=== PATIENT | female | born 1945 | race Caucasian/White ===

== ENCOUNTER 2023-04-25 12:48 | Day surgery (SDC) | payer MEDICARE, SELFPAY ==
[2023-04-25 13:21] VITALS: BP 178/80; PULSE 67; RESP 18; O2SAT 100; BMI 19.8
[2023-04-25 13:30] VITALS: BP 176/72; PULSE 83; RESP 18; O2SAT 99
[2023-04-25] MEDS: methylPREDNISolone ACETATE 80MG/ML VIAL 80 MG (13:30)
[2023-04-25 13:31] VITALS: BP 176/72; PULSE 87; RESP 18; O2SAT 100
--- NOTE | 2023-04-25 13:34 | EXP.PAIN.PRO ---
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 Lumbar spondylosis Post-procedure Diagnosis:: Same. Indications for Procedure:: Patient is a pleasant 77-year-old femal who comes our clinic today for a lumbar epidural steroid injection at the L4-5 level. Patient reports low back pain as well as bilateral hip and leg radicular symptoms. She rates her pain 7/10. Procedure Details:: Procedure: Lumbar epidural steroid injection under fluoroscopy Informed consent was obtained and the risks and benefits of the procedure were explained to the patient. The patient was taken to the procedure room and noninvasive monitors placed, including noninvasive blood pressure cuff and pulse oximeter. The back was viewed using C-arm Fluoroscopy and prepped using Chloraprep as a cleansing solution and the L4-L5 interspace was palpated. Skin and subcutaneous tissues were anesthetized using lidocaine 1.5% and a 25-gauge needle. After this, an 18-gauge Touhy epidural needle was placed into the L4-L5 interspace and advanced using fluoroscopic guidance and loss of resistance to air until the epidural space was encountered. After confirmation of needle placement in the epidural space, with dye, a solution containing normal saline, 3 mL and Depo-Medrol 80 mg were incrementally injected into the lumbar epidural space. The patient tolerated the procedure well with no complications. The patient was observed in the Pain Clinic and then discharged home neurologically intact. Plan and Disposition:: Patient was discharged out incident.
[2023-04-25 13:45] VITALS: BP 171/80; PULSE 66; RESP 16; O2SAT 100
== END 2023-04-25 13:45 | disposition home or self-care (01) ==
PROVIDERS: PCP Internal Medicine; Visit Provider Nurse Anesthetist, Certified Registered
DX: M51.16 Intervertebral disc disorders with radiculopathy, lumbar region (principal); M47.26 Other spondylosis with radiculopathy, lumbar region
CPT/HCPCS: 62323; J1040

== ENCOUNTER → 2023-05-08 11:48 | Outpatient (POV) | payer MEDICARE, SELFPAY ==
[2023-05-08 12:08] VITALS: BP 152/77; PULSE 64; RESP 18; BMI 19.7
--- NOTE | 2023-05-08 12:38 | A.OFFVIS_ITS ---
[facility] Pain Management SOAP Note Subjective:: Patient is a pleasant 77-year-old female who presents today for follow-up of lumbar epidural steroid injection L4-L5 on 04/25/2023. We are currently treating the patient for degenerative disc disease of lumbar spine with lumbar radiculopathy symptoms. Today she rates her pain a 0 out of 10. Patient denies any new trauma or injury. She states that this is the best she has felt in years. Patient states she has had at least 90% improvement and it is still continuing to provide additional relief. 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 Patient does have a history of neuropathy in her feet and arthritis in her hands. Patient states that she does stay very active. She is currently managed with gabapentin 300 mg 3 times a day from an outside provider. Her Sameer has been reviewed and is appropriate. Review of Systems: General: No recent weight changes, no fever, no sleep disturbances Respiratory: No cough, no shortness of air, no recurring pulmonary infections Cardiovascular/peripheral vascular: No chest pain, no palpitations, no edema, no shortness of breath Gastrointestinal: No new onset incontinence, normal bowel movements reported Genitourinary: No new onset incontinence Musculoskeletal: Low back pain Psychiatric: [Normal mood/affect] Neurological: [Denies weakness in extremities], [denies balance issues] Objective:: Physical Exam: General: Alert and oriented x3, no acute distress, pleasant and cooperative Lungs: Respirations even and unlabored, symmetrical chest expansion Eyes: PERRL Musculoskeletal: Flexion and extension of lumbar [spine] somewhat guarded secondary to pain, [antalgic gait noted] Neurological: Speech clear, no gross sensory deficit Assessment:: Degenerative disc disease of lumbar spine with lumbar radiculopathy symptoms Plan:: Patient has had significant improvement following her lumbar epidural and does not require any additional injection therapy at this time. I will order the patient a compounded cream. Patient will return to clinic in 1 month for reevaluation of symptoms and plan of care. Patient has been instructed to contact the clinic with any concerns before the next appointment. Dr. Peacock has reviewed this note and agrees with this plan of care. This note was dictated using voice recognition software and make contain errors or omissions. [facility] Disclaimer: The information contained in this section may have been updated after the patient was seen, as this information can be updated by other users. Family History Other Family history of myocardial infarction Heart disease Pacemaker Social History Smoking Status: Unknown if ever smoked alcohol intake: never current occupational status: other Travel in the last 8 weeks: None
== END ==
PROVIDERS: PCP Internal Medicine; Visit Provider Nurse Practitioner Family
DX: M51.16 Intervertebral disc disorders with radiculopathy, lumbar region (principal)
CPT/HCPCS: 99212; G0463

== ENCOUNTER 2023-06-12 11:23 | Outpatient (POV) | payer MEDICARE, SELFPAY ==
[2023-06-12 11:40] VITALS: BP 176/84; PULSE 74; RESP 18; O2SAT 99
--- NOTE | 2023-06-12 12:10 | A.OFFVIS_ITS ---
[facility] Pain Management SOAP Note Subjective:: Patient is a pleasant 77-year-old female who presents today for follow-up. Today she rates her pain a 6 out of 10. Patient denies any new trauma or injury. She does state that her shoulders are really bothering her with her right one being the worst side. As well as some in her low back and legs. Patient does describe her pain in her shoulders as an aching, throbbing sensation that is worse with increased activity and does limit severely her range of motion. Patient does state that the pain does interfere with her ability to perform activities of daily living such as cooking and cleaning. 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 Patient does state that the pain is interfering more with her ability to perform these activities. She is interested in injection therapy. Patient does state currently that her shoulder pain is worse than her low back pain. Patient states that she did have prior rotator cuff repair in her right shoulder on 2 different occasions however denies any prior replacement. Patient did previously have a lumbar epidural L4-L5 back in April that did provide upwards of 90% improvement. Patient was prescribed compounded cream at our last visit and states that it does help with her feet pain. Her Sameer has been reviewed and is appropriate. Review of Systems: General: No recent weight changes, no fever, no sleep disturbances Respiratory: No cough, no shortness of air, no recurring pulmonary infections Cardiovascular/peripheral vascular: No chest pain, no palpitations, no edema, no shortness of breath Gastrointestinal: No new onset incontinence, normal bowel movements reported Genitourinary: No new onset incontinence Musculoskeletal: Bilateral shoulder pain Psychiatric: [Normal mood/affect] Neurological: [Denies weakness in extremities], [denies balance issues] Objective:: Physical Exam: General: Alert and oriented x3, no acute distress, pleasant and cooperative Lungs: Respirations even and unlabored, symmetrical chest expansion Eyes: PERRL Musculoskeletal: Flexion and extension of bilateral shoulders somewhat guarded secondary to pain, [antalgic gait noted] Neurological: Speech clear, no gross sensory deficit Assessment:: Degenerative disc disease of lumbar spine with lumbar radiculopathy symptoms, bilateral shoulder pain Plan:: Patient is experiencing worsening pain in her bilateral shoulders with limited range of motion. I have discussed with the patient that she may benefit from bilateral shoulder intra-articular injection. Risk and benefits were discussed with the patient and she would like to proceed forward with this plan of care. Patient will be scheduled for bilateral shoulder intra-articular injections. Patient has been instructed to contact the clinic with any concerns before the next appointment. Dr. Peacock has reviewed this note and agrees with this plan of care. This note was dictated using voice recognition software and make contain errors or omissions. [facility] Disclaimer: The information contained in this section may have been updated after the patient was seen, as this information can be updated by other users. Family History Other Family history of myocardial infarction Heart disease Pacemaker Social History (Updated 05/08/23 @ 12:41 by Christina Scherer APRN) Smoking Status: Unknown if ever smoked alcohol intake: never current occupational status: retired Travel in the last 8 weeks: None
== END 2023-06-12 23:59 ==
LOC: SC.PAIN 11:24
PROVIDERS: PCP Internal Medicine; Visit Provider Nurse Practitioner Family
DX: M25.511 Pain in right shoulder (principal); M25.512 Pain in left shoulder; M51.16 Intervertebral disc disorders with radiculopathy, lumbar region
CPT/HCPCS: 99212; G0463

== ENCOUNTER 2023-07-11 13:00 | Day surgery (SDC) | payer MEDICARE, SELFPAY ==
[2023-07-11 13:22] VITALS: BP 194/82; PULSE 71; RESP 18; O2SAT 98; BMI 19.8
[2023-07-11] MEDS: LIDOCAINE 1% 5ML PF VIAL 5 ML (13:35)
[2023-07-11] MEDS: methylPREDNISolone ACETATE 80MG/ML VIAL 80 MG (13:35)
[2023-07-11 13:36] VITALS: BP 196/81; PULSE 75; RESP 18; O2SAT 97
[2023-07-11] MEDS: BUPIVACAINE 0.25% 10ML INJ 25 MG IJ (13:36)
[2023-07-11 13:37] VITALS: BP 196/81; PULSE 75; RESP 18; O2SAT 97
[2023-07-11 13:42] VITALS: BP 182/85; PULSE 72; RESP 18; TEMP 36.7; O2SAT 98
--- NOTE | 2023-07-11 13:44 | P.PCN_ITS ---
Procedure Date: 07/11/23 Time: 13:30 Anesthesiologist:: Kingston Ram CRNA Complications:: None Pre-procedure Diagnosis:: DJD bilateral shoulders. Chronic bilateral shoulder pain. Post-procedure Diagnosis:: Same. Indications for Procedure:: Patient is a pleasant 77-year-old female comes our clinic today for bilateral intra-articular shoulder injections of cortisone. Patient has 5/5 strength bilaterally. However, limited range of motion due to bilateral shoulder pain. Right greater than left. She rates her pain 7/10. Procedure Details:: Procedure Details: Bilateral shoulder intra-articular injection Informed consent was obtained risk and benefits of the procedure were explained to the patient. Patient was taken to the procedure room. The bilateral shoulders were prepped using ChloraPrep. A 25-gauge needle was used first anteriorly, laterally, and then posteriorly to inject 10 mL bupivacaine 0.25% and Depo- Medrol 40 mg. Patient tolerated procedure well with no complications. Plan and Disposition:: Patient was discharged without incident.
== END 2023-07-11 13:43 | disposition home or self-care (01) ==
PROVIDERS: PCP Internal Medicine; Visit Provider Nurse Anesthetist, Certified Registered
DX: M19.011 Primary osteoarthritis, right shoulder (principal); M19.012 Primary osteoarthritis, left shoulder; M25.511 Pain in right shoulder; M25.512 Pain in left shoulder; G89.29 Other chronic pain
CPT/HCPCS: 20610; J1010

== ENCOUNTER 2023-07-24 14:46 | Outpatient (POV) | payer MEDICARE, SELFPAY ==
[2023-07-24 14:53] VITALS: BP 179/76; PULSE 67; RESP 16; O2SAT 98; BMI 19.8
--- NOTE | 2023-07-24 15:32 | A.OFFVIS_ITS ---
[facility] Pain Management SOAP Note Subjective:: Patient is a pleasant 77-year-old female who presents today for follow-up of bilateral shoulder intra-articular injection on 07/11/2023. Today she rates her pain an 8 out of 10. Patient does state that that pain is all within low back and legs. She states that she has had at least 90% improvement following her shoulder injections. She does state that the left is much better than the right however overall in general she has had significant improved function and range of motion following these injections. Patient does state her pain today in her back is an aching, throbbing sensation with numbness and tingling into her extremities. She does state the pain interferes with her ability perform activities of daily living such as cooking and cleaning. Patient has previously had a lumbar epidural back in April that did provide 90% relief and has lasted up until the last couple of weeks. Patient states she would be interested in having a repeat injection as it did provide significant improvement. Her Sameer has been reviewed and is appropriate. Review of Systems: General: No recent weight changes, no fever, no sleep disturbances Respiratory: No cough, no shortness of air, no recurring pulmonary infections Cardiovascular/peripheral vascular: No chest pain, no palpitations, no edema, no shortness of breath Gastrointestinal: No new onset incontinence, normal bowel movements reported Genitourinary: No new onset incontinence Musculoskeletal: Low back pain Psychiatric: [Normal mood/affect] Neurological: [Denies weakness in extremities], [denies balance issues] Objective:: Physical Exam: General: Alert and oriented x3, no acute distress, pleasant and cooperative Lungs: Respirations even and unlabored, symmetrical chest expansion Eyes: PERRL Musculoskeletal: Flexion and extension of lumbar [spine] somewhat guarded secon sadia to pain, [antalgic gait noted] Neurological: Speech clear, no gross sensory deficit Assessment:: Degenerative disc disease of lumbar spine with lumbar radiculopathy symptoms, bilateral shoulder pain/osteoarthritis Plan:: Patient has had significant improvement following her intra-articular shoulder injections. Patient is however experiencing more pain in her low back and legs with limited range of motion. I have discussed with the patient that she may benefit from a repeat lumbar epidural steroid injection. Risk and benefits were discussed with patient and she would like to proceed forward with this plan of care. Patient has continued at home exercising and stretching between injecti ons with minimal relief. Patient has tried and failed conservative treatment. I have also discussed with the patient that if she has not had a recent DEXA scan that it may be beneficial in the future to order 1. Patient did state that she thought she was going to be getting 1 from her PCP. I have counseled her if this ends up being an issue that I will always be happy to order this for her. We will follow-up with this at future visits. Patient will be scheduled for LESI L4-L5 under fluoroscopy. Patient did previously get 90% relief lasting more than 3 months with her last lumbar epidural. Patient has been instructed to contact the clinic with any concerns before the next appointment. Dr. Peacock has reviewed this note and agrees with this plan of care. This note was dictated using voice recognition software and make contain errors or omissions. [facility] Disclaimer: The information contained in this section may have been updated after the patient was seen, as this information can be updated by other users. Medical History (Updated 07/11/23 @ 13:23 by Sona Denny RN) No significant past medical history Family History Other Family history of myocardial infarction Heart disease Pacemaker Social History Smoking Status: Unknown if ever smoked alcohol intake: never current occupational status: other Travel in the last 8 weeks: None
== END 2023-07-24 23:59 | disposition home or self-care (01) ==
LOC: SC.PAIN 14:47
PROVIDERS: PCP Internal Medicine; Visit Provider Nurse Practitioner Family
DX: M51.16 Intervertebral disc disorders with radiculopathy, lumbar region (principal); M19.011 Primary osteoarthritis, right shoulder; M19.012 Primary osteoarthritis, left shoulder; M25.511 Pain in right shoulder; M25.512 Pain in left shoulder
CPT/HCPCS: 99212; G0463

== ENCOUNTER 2023-08-15 11:48 | Day surgery (SDC) | payer MEDICARE, SELFPAY ==
[2023-08-15 12:01] VITALS: BP 170/88; PULSE 64; RESP 18; TEMP 36.3; O2SAT 100; BMI 19.8
[2023-08-15 12:11] VITALS: BP 180/74; PULSE 72; RESP 18; O2SAT 98
[2023-08-15] MEDS: methylPREDNISolone ACETATE 80MG/ML VIAL 80 MG (12:11)
[2023-08-15 12:12] VITALS: BP 180/74; PULSE 70; RESP 18; O2SAT 98
--- NOTE | 2023-08-15 12:16 | P.PCN_ITS ---
Procedure Date: 08/15/23 Time: 12:00 Anesthesiologist:: Kingston Ram CRNA Complications:: None Pre-procedure Diagnosis:: Degenerative disc lumbar spine multilevels. Lumbar radiculopathy. Post-procedure Diagnosis:: Same. Indications for Procedure:: Is a very pleasant 77-year-old female comes our clinic today for repeat lumbar epidural steroid injection L4-5 level. Patient reports 90+ percent improvement with previous injections at the same level. Patient reports low back pain as well as bilateral hip and leg radicular symptoms at times. She rates her pain 6/10. Procedure Details:: Procedure: Lumbar epidural steroid injection under fluoroscopy Informed consent was obtained and the risks and benefits of the procedure were explained to the patient. The patient was taken to the procedure room and noninvasive monitors placed, including noninvasive blood pressure cuff and pulse oximeter. The back was viewed using C-arm Fluoroscopy and prepped using Chloraprep as a cleansing solution and the L4-L5 interspace was palpated. Skin a nd subcutaneous tissues were anesthetized using lidocaine 1.5% and a 25-gauge needle. After this, an 18-gauge Touhy epidural needle was placed into the L4-L5 interspace and advanced using fluoroscopic guidance and loss of resistance to air until the epidural space was encountered. After confirmation of needle placement in the epidural space, with dye, a solution containing normal saline, 3 mL and Depo-Medrol 80 mg were incrementally injected into the lumbar epidural space. The patient tolerated the procedure well with no complications. The patient was observed in the Pain Clinic and then discharged home neurologically intact. Plan and Disposition:: Patient was discharged without incident.
[2023-08-15 12:21] VITALS: BP 185/79; PULSE 65; RESP 16; O2SAT 98
== END 2023-08-15 12:22 | disposition home or self-care (01) ==
PROVIDERS: PCP Internal Medicine; Visit Provider Nurse Anesthetist, Certified Registered
DX: M51.16 Intervertebral disc disorders with radiculopathy, lumbar region (principal)
CPT/HCPCS: 62323; J1010

== ENCOUNTER 2023-08-28 09:22 | Outpatient (POV) | payer MEDICARE, SELFPAY ==
[2023-08-28 10:02] VITALS: BP 174/76; PULSE 62; RESP 18; O2SAT 99; BMI 19.5
--- NOTE | 2023-08-28 10:04 | A.OFFVIS_ITS ---
[facility] Pain Management SOAP Note Subjective:: Patient is a pleasant 77-year-old female who presents today for follow-up of lumbar epidural steroid injection L4-L5 on 08/15/2023. Patient rates her pain today an 8 out of 10. She denies any new trauma or injury. She does state that she had at least 80% relief in her low back and leg symptoms. She states her pain today is more related to her right groin. Patient states this is a constant achy sensation that is worse with ambulation or activity. She denies any radiating symptoms down into her leg and states its only really when she is up walking. She does state the pain interferes with her ability perform activities of daily living such as cooking and cleaning. Patient denies any prior right hip replacement. Patient does have a history of her fractures that ended up resulting in having to have a couple of nails/screws placed. Patient does state from our last visit that she is now having to go see a provider at [facility] due to an abnormal finding on a CT scan of her pancreas. Patient states that they were trying to rule out any kidney stones or possible shingles and that was how they ended up getting the imaging. Patient states that she does not really know what exactly will be doing and has not heard from that office yet with her appointment date and time. Patient is prescribed compounded cream and is requesting refills. Her Sameer has been reviewed and is appropriate. Review of Systems: General: No recent weight changes, no fever, no sleep disturbances Respiratory: No cough, no shortness of air, no recurring pulmonary infections Cardiovascular/peripheral vascular: No chest pain, no palpitations, no edema, no shortness of breath Gastrointestinal: No new onset incontinence, normal bowel movements reported Genitourinary: No new onset incontinence Musculoskeletal: Right hip pain/right groin pain Psychiatric: [Normal mood/affect] Neurological: [Denies weakness in extremities], [denies balance issues] Objective:: Physical Exam: General: Alert and oriented x3, no acute distress, pleasant and cooperative Lungs: Respirations even and unlabored, symmetrical chest expansion Eyes: PERRL Musculoskeletal: Flexion and extension of right hip somewhat guarded secondary to pain, [antalgic gait noted] Neurological: Speech clear, no gross sensory deficit Assessment:: Degenerative disc disease of lumbar spine with lumbar radiculopathy symptoms, right hip/groin pain Plan:: Patient is experiencing worsening pain in her right hip with limited range of motion. Patient had a negative Jacob's and negative point tenderness along her SI during today's exam. I have discussed with the patient due to her worsening pain they are in her hip and groin area that she may benefit from a intra-articular hip injection. Risk and benefits were discussed with the patient and she would like to proceed forward with this plan of care. I did college admissions counselor the patient that when she does hear from the specialist from [facility] to let them know that she is scheduled for a hip injection and whether or not they have any contraindications to this and let our office know. I will order refills of her cream. Patient will be scheduled for a right hip intra-articular injection under fluoroscopy. Patient has tried and failed conservative therapy including continued at home exercising and stretching between injections. Patient did have elevated blood pressure of 178/74 with her last check before she left today's office. Patient is prescribed blood pressure medications from her primary care provider. We have discussed with patient to make sure to follow-up with the office for possible changes to her current symptoms. Patient acknowledged this with this plan of care. Patient has been instructed to contact the clinic with any concerns before the next appointment. Dr. Peacock has reviewed this note and agrees with this plan of care. This note was dictated using voice recognition software and make contain errors or omissions. [facility] Disclaimer: The information contained in this section may have been updated after the patient was seen, as this information can be updated by other users. Medical History No significant past medical history Family History Other Family history of myocardial infarction Heart disease Pacemaker Social History Smoking Status: Unknown if ever smoked alcohol intake: never current occupational status: retired Travel in the last 8 weeks: None
== END 2023-08-28 23:59 | disposition home or self-care (01) ==
LOC: SC.PAIN 09:22
PROVIDERS: PCP Internal Medicine; Visit Provider Nurse Practitioner Family
DX: M25.551 Pain in right hip (principal); M51.36 Other intervertebral disc degeneration, lumbar region; M54.16 Radiculopathy, lumbar region
CPT/HCPCS: 99212; G0463

== ENCOUNTER 2023-09-19 08:59 | Day surgery (SDC) | payer MEDICARE, SELFPAY ==
[2023-09-19 09:27] VITALS: BP 177/78; PULSE 80; RESP 18; TEMP 36.4; O2SAT 97; BMI 19.5
[2023-09-19] MEDS: BUPIVACAINE 0.25% 10ML INJ 25 MG IJ (09:42)
[2023-09-19] MEDS: LIDOCAINE 1% 5ML PF VIAL 5 ML (09:42)
[2023-09-19] MEDS: methylPREDNISolone ACETATE 80MG/ML VIAL 80 MG (09:42)
[2023-09-19 09:43] VITALS: BP 191/85; PULSE 79; RESP 18; O2SAT 97
[2023-09-19 09:45] VITALS: BP 191/85; PULSE 79; RESP 18; O2SAT 97
[2023-09-19 09:46] VITALS: BP 188/80; PULSE 76; RESP 18; O2SAT 98
--- NOTE | 2023-09-19 09:59 | P.PCN_ITS ---
Procedure Date: 09/19/23 Time: 09:30 Anesthesiologist:: Kingston Ram CRNA Complications:: None Pre-procedure Diagnosis:: DJD right hip. Chronic right hip pain. Post-procedure Diagnosis:: Same. Indications for Procedure:: Patient is a pleasant 77-year-old female comes our clinic today for right intra- articular hip injection of cortisone. Patient has difficulty with abduction and abduction due to increased pain in the anterior portion of the hip. Ambulation increases pain significantly. She rates her pain 8/10. Procedure Details:: Details of the procedure were explained to the patient. The patient was taken to procedure room placed in the supine position. The area over the right hip was cleaned using chlorhexidine as a cleansing solution. Using fluoroscopy guidance a 3 and half inch 22-gauge spinal needle was used to access the right hip joint without difficulty. After negative aspiration 3 cc of 1% lidocaine +3 cc of 0.25% Marcaine and 40 mg of Depo-Medrol was injected. Needle was withdrawn. Band-Aid applied. Patient tolerated procedure without difficulty. There are no complications. Plan and Disposition:: Patient was discharged without incident.
== END 2023-09-19 09:48 | disposition home or self-care (01) ==
PROVIDERS: PCP Internal Medicine; Visit Provider Nurse Anesthetist, Certified Registered
DX: G89.29 Other chronic pain (principal); M25.551 Pain in right hip; M16.11 Unilateral primary osteoarthritis, right hip
CPT/HCPCS: 20610; 77002; J1010

== ENCOUNTER 2023-10-05 11:32 | Outpatient (POV) | payer MEDICARE, SELFPAY ==
--- NOTE | 2023-10-05 11:48 | EXP.PAIN.SOA ---
[facility] Disclaimer: The information contained in this section may have been updated after the patient was seen, as this information can be updated by other users. Medical History (Updated 10/05/23 @ 11:51 by Christina Scherer APRN) No significant past medical history Family History Other Family history of myocardial infarction Heart disease Pacemaker Social History Smoking Status: Unknown if ever smoked alcohol intake: never current occupational status: retired Travel in the last 8 weeks: None PM Subjective & Objective Subjective Subjective:: Patient is a pleasant 78-year-old female who presents today for follow-up of right hip intra-articular injection on 09/19/2023. Patient rates her pain today an 8 out of 10. She denies any new trauma or injury. She states this injection only really did minimal up upwards of 25%. She states she is still having tenderness around her low back and bilateral hips as well as her right groin. It is a constant achy sensation that is worse with ambulation or activity. She does state the pain interferes with her ability perform activities of daily living such as cooking and cleaning. She denies any symptoms down into her legs. She states that she cannot do very much/work or cleaning due to the worsening pain. Patient is interested in any help we may be able to provide. Patient is prescribed compounded cream. Her Sameer has been reviewed and is appropriate. Review of Systems: General: No recent weight changes, no fever, no sleep disturbances Respiratory: No cough, no shortness of air, no recurring pulmonary infections Cardiovascular/peripheral vascular: No chest pain, no palpitations, no edema, no shortness of breath Gastrointestinal: No new onset incontinence, normal bowel movements reported Genitourinary: No new onset incontinence Musculoskeletal: Low back pain, bilateral hip pain, right groin pain Psychiatric: [Normal mood/affect] Neurological: [Denies weakness in extremities], [denies balance issues] Pain at rest (0-10 scale): 8 Objective Objective:: Physical Exam: General: Alert and oriented x3, no acute distress, pleasant and cooperative Lungs: Respirations even and unlabored, symmetrical chest expansion Eyes: PERRL Musculoskeletal: Flexion and extension of lumbar [spine] somewhat guarded secondary to pain, [antalgic gait noted] point tenderness along bilateral SIs with positive bilateral Jacob's, Ashia's, Gaenslen's, compression and distraction exam Neurological: Speech clear, no gross sensory deficit Has patient had previous pain injection?: Yes Percent improvement in pain since last injection: 25% Conservative treatment options previously tried: NSAIDS Length of treatment: Longer than 12 weeks and Home exercise plan Length of treatment: Longer than 12 weeks Meds Home Medications and Allergies Home Medications ?Medication ?Instructions ?Recorded ?Confirmed ?Type alendronate 70 mg tablet 70 mg PO WEEKLY 04/25/23 08/28/23 History gabapentin 300 mg capsule 300 mg PO TID 04/25/23 08/28/23 History lisinopril 20 mg tablet 20 mg PO DAILY 04/25/23 08/28/23 History diclofenac sodium 50 mg 50 mg PO DAILY 06/12/23 08/28/23 History tablet,delayed release New Prescriptions to Start Prescriptions: Allergies Allergy/AdvReac Type Severity Reaction Status Date / Time sulfamethoxazole AdvReac Verified 04/25/23 13:21 [From Bactrim] trimethoprim [From Bactrim] AdvReac Verified 04/25/23 13:21 Assessment and Plan *Assessment and plan (1) Bilateral sacroiliitis: Status: Acute Category: Medical Code(s): M46.1 - Sacroiliitis, not elsewhere classified (2) Bilateral hip pain: Status: Acute Category: Medical Code(s): M25.551 - Pain in right hip; M25.552 - Pain in left hip Plan Patient is experiencing significant pain throughout her low back and bilateral hips and right groin. Patient did have point tenderness along her bilateral SIs with positive bilateral Jacob's, Ashia's, Gaenslen's, compression and distraction exam. I discussed with the patient that she may benefit from bilateral SI injections. Risk and benefits were discussed with the patient and she would like to proceed forward with this plan of care. Patient has tried and failed conservative therapy including oral medications, heat and ice, topicals, continued at home stretching exercise for longer than 12 weeks. We will submit to insurance for bilateral SI injections under fluoroscopy. Patient has been instructed to contact the clinic with any concerns before the next appointment. Dr. Peacock has reviewed this note and agrees with this plan of care. This note was dictated using voice recognition software and make contain errors or omissions. All injections are used with Lidocaine or Bupivacaine and Depo Medrol.
[2023-10-05 12:19] VITALS: BP 142/72; PULSE 69; RESP 18; O2SAT 97; BMI 19.8
== END 2023-10-05 23:59 | disposition home or self-care (01) ==
LOC: SC.PAIN 11:33
PROVIDERS: PCP Internal Medicine; Visit Provider Nurse Practitioner Family
DX: M46.1 Sacroiliitis, not elsewhere classified (principal); M25.551 Pain in right hip; M25.552 Pain in left hip; Z73.89 Other problems related to life management difficulty
CPT/HCPCS: 99212; G0463

== ENCOUNTER 2023-10-24 11:31 | Day surgery (SDC) | payer MEDICARE, SELFPAY ==
[2023-10-24 11:49] VITALS: RESP 18; O2SAT 97
[2023-10-24] MEDS: LIDOCAINE 1% 5ML PF VIAL 5 ML (11:49)
[2023-10-24] MEDS: methylPREDNISolone ACETATE 80MG/ML VIAL 80 MG (11:49)
[2023-10-24] MEDS: BUPIVACAINE 0.25% 10ML INJ 25 MG IJ (11:49)
[2023-10-24 11:52] VITALS: BP 185/79; PULSE 70; RESP 16; TEMP 36.4; O2SAT 98; BMI 19.4
--- NOTE | 2023-10-24 11:54 | P.PCN_ITS ---
Procedure Date: 10/24/23 Time: 11:40 Anesthesiologist:: Kingston Ram CRNA Complications:: None Pre-procedure Diagnosis:: Bilateral sacroiliitis. Post-procedure Diagnosis:: Same. Indications for Procedure:: Patient is a very pleasant 78-year-old female who comes our clinic today for bilateral sacroiliac joint injection of cortisone. Patient describes low lumbar back pain off the midline as constant, dull, aching. Patient reports having difficulty transitioning from sitting to standing. She rates her pain 7/10. Procedure Details:: Procedure: Bilateral sacroiliac joint injections under fluoroscopy Informed consent was obtained and the risks and benefits of the procedure were explained to the patient.~ The patient was taken to the procedure room and noninvasive monitors were placed including a noninvasive blood pressure cuff and pulse oximeter.~ The patient was placed prone on the procedure table. Both hips were cleansed using Betadine as a cleansing solution. C-arm fluoroscopy was used to view the right sacroiliac joint.~ The skin and subcutaneous tissues were anesthetized using lidocaine 1.5% and a 25-gauge needle.~ After this, a 22-gauge spinal needle was inserted under fluoroscopic guidance into the inferior aspect of the right sacroiliac joint.~ Omnipaque dye was injected and good spread was seen throughout the joint.~ After this, approximately 5 mL of bupivacaine, 0.25% and Depo-Medrol, 40 mg was incrementally injected into the right sacroiliac joint. We then moved to the left sacroiliac joint.~ The skin and subcutaneous tissues were anesthetized using lidocaine 1.5% and a 25-gauge needle.~ After this, a 22- gauge spinal needle was inserted under fluoroscopic guidance into the inferior aspect of the left sacroiliac joint.~ Omnipaque dye was injected and good spread was seen throughout the joint. After this, approximately 5 mL of bupivacaine, 0.25% and Depo-Medrol, 40 mg was incrementally injected into the left sacroiliac joint.~ The patient tolerated the procedure well with no complications. The patient was observed in the Pain Clinic and then was discharged home neurologically intact. Plan and Disposition:: Patient was discharged without incident.
[2023-10-24 11:56] VITALS: BP 198/81; PULSE 66; RESP 16; O2SAT 98
== END 2023-10-24 11:56 | disposition home or self-care (01) ==
PROVIDERS: PCP Internal Medicine; Visit Provider Nurse Anesthetist, Certified Registered
DX: M46.1 Sacroiliitis, not elsewhere classified (principal)
CPT/HCPCS: 27096; G0260; J1010

== ENCOUNTER 2023-11-20 11:08 | Outpatient (POV) | payer MEDICARE, SELFPAY ==
--- NOTE | 2023-11-20 11:41 | A.OFFVIS_ITS ---
[facility] Disclaimer: The information contained in this section may have been updated after the patient was seen, as this information can be updated by other users. Medical History (Updated 11/20/23 @ 11:43 by Christina Scherer APRN) No significant past medical history Family History Other Family history of myocardial infarction Heart disease Pacemaker Social History Smoking Status: Unknown if ever smoked alcohol intake: never current occupational status: retired Travel in the last 8 weeks: None PM Subjective & Objective Subjective Subjective:: Patient is a pleasant 78-year-old female who presents today for 1 month follow- up. Today she rates her pain a 7 out of 10. Patient denies any new trauma or injury. She does state that her last SI injections back on October 23 did provide 90% relief and really worked the full months since then. Patient does state today that she is experiencing more pain in her low back that is a constant aching sensation with numbness and tingling going down primarily her en tire right leg. She does state that she has some in the left leg but it is nothing in comparison. Patient does state the pain interferes with her ability perform activities of daily living such as cooking and cleaning. Patient does state that she is also had a DEXA scan recently and that it did have significant osteoporosis noted. She states that she has been to her primary care and that she was on Fosamax for some time however they recently did stop that and were trying to get her in for Prolia injections. Patient states that the girl in the office that gets you set up and gives you the cost has been out due to COVID and so she has not heard back on this. She is prescribed gabapentin from an outside provider and compounded cream from our office. Her Sameer has been reviewed and is appropriate. Review of Systems: General: No recent weight changes, no fever, no sleep disturbances Respiratory: No cough, no shortness of air, no recurring pulmonary infections Cardiovascular/peripheral vascular: No chest pain, no palpitations, no edema, no shortness of breath Gastrointestinal: No new onset incontinence, normal bowel movements reported Genitourinary: No new onset incontinence Musculoskeletal: Low back pain, bilateral leg pain Psychiatric: [Normal mood/affect] Neurological: [Denies weakness in extremities], [denies balance issues] Pain at rest (0-10 scale): 7 Objective Objective:: Physical Exam: General: Alert and oriented x3, no acute distress, pleasant and cooperative Lungs: Respirations even and unlabored, symmetrical chest expansion Eyes: PERRL Musculoskeletal: Flexion and extension of lumbar [spine] somewhat guarded secondary to pain, [antalgic gait noted] Neurological: Speech clear, no gross sensory deficit Has patient had previous pain injection?: Yes Percent improvement in pain since last injection: 90% Conservative treatment options previously tried: Home exercise plan Length of treatment: Longer than 12 weeks Meds Home Medications and Allergies Home Medications ?Medication ?Instructions ?Recorded ?Confirmed ?Type alendronate 70 mg tablet 70 mg PO WEEKLY 04/25/23 10/24/23 History gabapentin 300 mg capsule 300 mg PO TID 04/25/23 10/24/23 History lisinopril 20 mg tablet 20 mg PO DAILY 04/25/23 10/24/23 History diclofenac sodium 50 mg 50 mg PO DAILY 06/12/23 10/24/23 History tablet,delayed release New Prescriptions to Start Prescriptions: Allergies Allergy/AdvReac Type Severity Reaction Status Date / Time sulfamethoxazole AdvReac Verified 10/24/23 11:52 [From Bactrim] trimethoprim [From Bactrim] AdvReac Verified 10/24/23 11:52 Assessment and Plan *Assessment and plan (1) Degenerative disc disease, lumbar: Status: Acute Category: Medical Code(s): M51.36 - Other intervertebral disc degeneration, lumbar region (2) Lumbar radiculopathy: Status: Acute Category: Medical Code(s): M54.16 - Radiculopathy, lumbar region Plan Patient is experiencing worsening pain throughout her low back and bilateral lower extremities with limited range of motion. Patient has had lumbar epidurals in the past and I have discussed with her that I do believe she would benefit from this injection today due to her current exam findings. Patient's last injection was in August where she did get 80% relief and did significantly improve her overall function. Risk and benefits were discussed with the patient and she would like to proceed forward with this plan of care. I have discussed at length with her as well that we will have to be very mindful of her injections due to her significant osteoporosis. I have also discussed with her to make sure that she does follow-up with primary care that she is scheduled for the Prolia injection as soon as possible. Patient acknowledges understanding. Patient will be scheduled for an LESI L4-L5 under fluoroscopy. Patient has continued at home stretching exercise for longer than 12 weeks with no additional changes. Patient has been instructed to contact the clinic with any concerns before the next appointment. Dr. Peacock has reviewed this note and agrees with this plan of care. This note was dictated using voice recognition software and make contain errors or omissions. All injections are used with Lidocaine or Bupivacaine and Depo Medrol.
[2023-11-20 11:53] VITALS: BP 185/75; PULSE 67; RESP 18; O2SAT 98; BMI 19.5
== END 2023-11-20 23:59 | disposition home or self-care (01) ==
LOC: SC.PAIN 11:10
PROVIDERS: PCP Internal Medicine; Visit Provider Nurse Practitioner Family
DX: M51.16 Intervertebral disc disorders with radiculopathy, lumbar region (principal); Z73.89 Other problems related to life management difficulty
CPT/HCPCS: 99212; G0463

== ENCOUNTER 2023-12-05 13:58 | Day surgery (SDC) | payer MEDICARE, SELFPAY ==
[2023-12-05 14:23] VITALS: BP 127/60; PULSE 74; RESP 16; TEMP 36.4; O2SAT 97; BMI 19.1
[2023-12-05 14:45] VITALS: BP 170/78; PULSE 75; RESP 18; O2SAT 97
[2023-12-05] MEDS: methylPREDNISolone ACETATE 80MG/ML VIAL 80 MG (14:45)
[2023-12-05 14:46] VITALS: BP 170/78; PULSE 75; RESP 18; O2SAT 97
--- NOTE | 2023-12-05 14:49 | P.PCN_ITS ---
Procedure Date: 12/05/23 Time: 14:30 Anesthesiologist:: Kingston Ram CRNA Complications:: None Pre-procedure Diagnosis:: Degenerative disc lumbar spine multilevels. Lumbar radiculopathy. Lumbar spondylosis. Multilevel lumbar facet arthropathy Post-procedure Diagnosis:: Same. Indications for Procedure:: Patient is a very pleasant 78-year-old female comes our clinic today for repeat L4-5 lumbar epidural steroid injection. Patient is reporting 1 to 2 months of relief with previous injection at the same level. She describes low back pain as constant, dull, aching. She also reports bilateral hip and leg radicular symptoms. She rates her pain 6/10. Procedure Details:: Procedure: Lumbar epidural steroid injection under fluoroscopy Informed consent was obtained and the risks and benefits of the procedure were explained to the patient. The patient was taken to the procedure room and noninvasive monitors placed, including noninvasive blood pressure cuff and pulse oximeter. The back was viewed using C-arm Fluoroscopy and prepped using Chloraprep as a cleansing solution and the L4-L5 interspace was palpated. Skin and subcutaneous tissues were anesthetized using lidocaine 1.5% and a 25-gauge needle. After this, an 18-gauge Touhy epidural needle was placed into the L4-L5 interspace and advanced using fluoroscopic guidance and loss of resistance to air until the epidural space was encountered. After confirmation of needle pl acement in the epidural space, with dye, a solution containing normal saline, 3 mL and Depo-Medrol 80 mg were incrementally injected into the lumbar epidural space. The patient tolerated the procedure well with no complications. The patient was observed in the Pain Clinic and then discharged home neurologically intact. Plan and Disposition:: Patient was discharged without incident.
[2023-12-05 14:53] VITALS: BP 131/74; PULSE 71; RESP 18; O2SAT 96
== END 2023-12-05 14:53 | disposition home or self-care (01) ==
PROVIDERS: PCP Internal Medicine; Visit Provider Nurse Anesthetist, Certified Registered
DX: M51.16 Intervertebral disc disorders with radiculopathy, lumbar region (principal); M47.26 Other spondylosis with radiculopathy, lumbar region
CPT/HCPCS: 62323; J1010

== ENCOUNTER 2024-01-01 15:05 | Outpatient (POV) | payer MEDICARE, SELFPAY ==
[2024-01-01 16:07] VITALS: BP 130/80; PULSE 76; RESP 16; O2SAT 99; BMI 19.3
--- NOTE | 2024-01-01 16:09 | EXP.PAIN.SOA ---
[facility] Disclaimer: The information contained in this section may have been updated after the patient was seen, as this information can be updated by other users. Medical History No significant past medical history Family History Other Family history of myocardial infarction Heart disease Pacemaker Social History Smoking Status: Unknown if ever smoked alcohol intake: never current occupational status: retired Travel in the last 8 weeks: None PM Subjective & Objective Subjective Subjective:: Patient is a pleasant 78-year-old female who presents today for follow-up of lumbar epidural steroid injection L4-L5 on 12/05/2023. Patient rates her pain today a 7 out of 10. She denies any new trauma or injury. Patient does state that initially when she had this done when she got up off the table she was completely numb however within about 4 hours the pain was already starting to come back. Patient does state a lot of her pain is still in her low back and bilateral hips with numbness and tingling. She does state the pain is interfering with her ability perform activities of daily living such as cooking and cleaning. Patient did previously get bilateral SI injections that did provide 90% improvement and lasted longer than 2 months. Patient states that she is interested in additional injection therapy that it has provided significant improvement of her overall function. Patient does also have questions regarding possible pump or stimulator trial. Patient has tried and failed conservative therapy including continued at home stretching exercise for longer than 12 weeks. Patient was tried on compounded cream however she felt like diclofenac did just as well if not better. She is asking if we can send in refills on this. Her Sameer has been reviewed and is appropriate. Review of Systems: General: No recent weight changes, no fever, no sleep disturbances Respiratory: No cough, no shortness of air, no recurring pulmonary infections Cardiovascular/peripheral vascular: No chest pain, no palpitations, no edema, no shortness of breath Gastrointestinal: No new onset incontinence, normal bowel movements reported Genitourinary: No new onset incontinence Musculoskeletal: Low back pain, bilateral hip pain Psychiatric: [Normal mood/affect] Neurological: [Denies weakness in extremities], [denies balance issues] Pain at rest (0-10 scale): 7 Objective Objective:: Physical Exam: General: Alert and oriented x3, no acute distress, pleasant and cooperative Lungs: Respirations even and unlabored, symmetrical chest expansion Eyes: PERRL Musculoskeletal: Flexion and extension of lumbar [spine] somewhat guarded secondary to pain, [antalgic gait noted] point tenderness along bilateral SIs with positive bilateral Jacob's, Ashia's, Gaenslen's, compression and distraction exam Neurological: Speech clear, no gross sensory deficit Has patient had previous pain injection?: Yes Percent improvement in pain since last injection: Numb for 4 hours Conservative treatment options previously tried: Home exercise plan Length of treatment: Longer than 12 weeks Meds Home Medications and Allergies Home Medications ?Medication ?Instructions ?Recorded ?Confirmed ?Type alendronate 70 mg tablet 70 mg PO WEEKLY 04/25/23 01/01/24 History gabapentin 300 mg capsule 300 mg PO TID 04/25/23 01/01/24 History lisinopril 20 mg tablet 20 mg PO DAILY 04/25/23 01/01/24 History diclofenac sodium 50 mg 50 mg PO DAILY 06/12/23 01/01/24 History tablet,delayed release New Prescriptions to Start Prescriptions: Allergies Allergy/AdvReac Type Severity Reaction Status Date / Time sulfamethoxazole AdvReac Verified 10/24/23 11:52 [From Bactrim] trimethoprim [From Bactrim] AdvReac Verified 10/24/23 11:52 Assessment and Plan *Assessment and plan (1) Bilateral sacroiliitis: Status: Acute Category: Medical Code(s): M46.1 - Sacroiliitis, not elsewhere classified (2) Bilateral hip pain: Status: Acute Category: Medical Code(s): M25.551 - Pain in right hip; M25.552 - Pain in left hip Plan Patient is experiencing worsening pain in her low back and bilateral hips with limited range of motion and point tenderness along her bilateral SIs. Patient did have positive bilateral Jacob's, Ashia's, Gaenslen's, compression and distraction exam. I did discuss with the patient that she may benefit from repeat bilateral SI injections. Risk and benefits were discussed with the patient and she would like to proceed forward with this plan of care. Patient has tried and failed conservative therapy including continued at home stretching exercise for longer than 12 weeks. Patient did previously have bilateral SI injections in October that did provide 90% relief. I did also review over the risk and benefits of the pain pump and stimulator trial. Patient was counseled that we would order a psychological evaluation first and that as long as she was deemed an appropriate candidate could proceed forward with the trial at a later date. Patient acknowledges understanding and states that she would like to think on it. We will follow-up with this at future visits. Patient will be scheduled for bilateral SI injections under fluoroscopy. I will also order the patient diclofenac gel. Patient has been instructed to contact the clinic with any concerns before the next appointment. Dr. Peacock has reviewed this note and agrees with this plan of care. This note was dictated using voice recognition software and make contain errors or omissions. All injections are used with Lidocaine or Bupivacaine and Depo Medrol.
== END 2024-01-01 23:59 | disposition home or self-care (01) ==
PROVIDERS: PCP Internal Medicine; Visit Provider Nurse Practitioner Family
DX: M46.1 Sacroiliitis, not elsewhere classified (principal); M25.551 Pain in right hip; M25.552 Pain in left hip; Z73.89 Other problems related to life management difficulty
CPT/HCPCS: 99212; G0463

== ENCOUNTER 2024-01-30 10:35 | Day surgery (SDC) | payer MEDICARE, SELFPAY ==
[2024-01-30 10:53] VITALS: BP 138/66; PULSE 78; RESP 16; TEMP 36.6; O2SAT 99; BMI 19.1
[2024-01-30] MEDS: LIDOCAINE 1% 5ML PF VIAL 5 ML (11:10)
[2024-01-30] MEDS: methylPREDNISolone ACETATE 80MG/ML VIAL 80 MG (11:11)
[2024-01-30] MEDS: BUPIVACAINE 0.25% 10ML INJ 25 MG IJ (11:11)
--- NOTE | 2024-01-30 11:20 | P.PCN_ITS ---
Procedure Date: 01/30/24 Time: 10:40 Anesthesiologist:: Kingston Ram CRNA Complications:: None Pre-procedure Diagnosis:: Bilateral sacroiliitis Post-procedure Diagnosis:: Same Indications for Procedure:: Patient is a pleasant 78-year-old female comes our clinic today for bilateral sacroiliac joint injections of cortisone and local anesthetic. Patient describes low lumbar back pain off the midline bilaterally. Bilateral posterior hip pain. Difficulty transitioning from sitting to standing. Difficulty with ambulation. Difficulty with sitting. She rates her pain 8/10. According to the patient she responded well to bilateral sacroiliac joint injections in the past. Procedure Details:: Procedure: Bilateral sacroiliac joint injections under fluoroscopy Informed consent was obtained and the risks and benefits of the procedure were explained to the patient.~ The patient was taken to the procedure room and noninvasive monitors were placed including a noninvasive blood pressure cuff and pulse oximeter.~ The patient was placed prone on the procedure table. Both hips were cleansed using Betadine as a cleansing solution. C-arm fluoroscopy was used to view the right sacroiliac joint.~ The skin and subcutaneous tissues were anes thetized using lidocaine 1.5% and a 25-gauge needle.~ After this, a 22-gauge spinal needle was inserted under fluoroscopic guidance into the inferior aspect of the right sacroiliac joint.~ Omnipaque dye was injected and good spread was seen throughout the joint.~ After this, approximately 5 mL of bupivacaine, 0.25% and Depo-Medrol, 40 mg was incrementally injected into the right sacroiliac joint. We then moved to the left sacroiliac joint.~ The skin and subcutaneous tissues were anesthetized using lidocaine 1.5% and a 25-gauge needle.~ After this, a 22- gauge spinal needle was inserted under fluoroscopic guidance into the inferior aspect of the left sacroiliac joint.~ Omnipaque dye was injected and good spread was seen throughout the joint. After this, approximately 5 mL of bupivacaine, 0.25% and Depo-Medrol, 40 mg was incrementally injected into the left sacroiliac joint.~ The patient tolerated the procedure well with no complications. The patient was observed in the Pain Clinic and then was discharged home neurologically intact. Plan and Disposition:: Patient was discharged without incident.
[2024-01-30 11:24] VITALS: BP 174/86; PULSE 86; RESP 16; O2SAT 99
== END 2024-01-30 11:24 | disposition home or self-care (01) ==
PROVIDERS: PCP Internal Medicine; Visit Provider Nurse Anesthetist, Certified Registered
DX: M46.1 Sacroiliitis, not elsewhere classified (principal)
CPT/HCPCS: 27096; G0260; J1010

== ENCOUNTER 2024-02-19 11:11 | Outpatient (POV) | payer MEDICARE, SELFPAY ==
--- NOTE | 2024-02-19 11:22 | EXP.PAIN.SOA ---
[facility] Disclaimer: The information contained in this section may have been updated after the patient was seen, as this information can be updated by other users. Medical History (Updated 02/19/24 @ 12:13 by Christina Scherer APRN) No significant past medical history Family History Other Family history of myocardial infarction Heart disease Pacemaker Social History Smoking Status: Unknown if ever smoked alcohol intake: never current occupational status: retired Travel in the last 8 weeks: None PM Subjective & Objective Subjective Subjective:: Patient is a pleasant 78-year-old female who presents today for follow-up of bilateral SI injections on 01/30/2024.Patient rates her pain today a 8 out of 10. She denies any new trauma or injury. She does state that she had more than 50% improvement on the left following these injections however on the right she still is having more pain. She does state a lot of her pain today is also related to her shoulder. Patient states that she did end up seeing Dr. Patterson they are in [place] and that she is getting scheduled for a right shoulder replacement in March. Patient states that this is chronic pain throughout this joint and she does have limited range of motion. Patient states that she has not seen any second opinions however that Pat had mentioned a provider in [place] but she never heard anything further. Patient has tried and failed conservative therapy including continued at home stretching exercise for longer than 12 weeks. Patient has tried the compounded cream however got better relief with diclofenac gel. Her Sameer has been reviewed and is appropriate. Review of Systems: General: No recent weight changes, no fever, no sleep disturbances Respiratory: No cough, no shortness of air, no recurring pulmonary infections Cardiovascular/peripheral vascular: No chest pain, no palpitations, no edema, no shortness of breath Gastrointestinal: No new onset incontinence, normal bowel movements reported Genitourinary: No new onset incontinence Musculoskeletal: Low back pain right-sided, right shoulder pain Psychiatric: [Normal mood/affect] Neurological: [Denies weakness in extremities], [denies balance issues] Pain at rest (0-10 scale): 8 Objective Objective:: Physical Exam: General: Alert and oriented x3, no acute distress, pleasant and cooperative Lungs: Respirations even and unlabored, symmetrical chest expansion Eyes: PERRL Musculoskeletal: Flexion and extension of lumbar [spine] somewhat guarded secondary to pain, [antalgic gait noted] Neurological: Speech clear, no gross sensory deficit Has patient had previous pain injection?: Yes Percent improvement in pain since last injection: 80% Conservative treatment options previously tried: Home exercise plan Length of treatment: Longer than 12 weeks Meds Home Medications and Allergies Home Medications ?Medication ?Instructions ?Recorded ?Confirmed ?Type alendronate 70 mg tablet 70 mg PO WEEKLY 04/25/23 01/30/24 History gabapentin 300 mg capsule 300 mg PO TID 04/25/23 01/30/24 History lisinopril 20 mg tablet 20 mg PO DAILY 04/25/23 01/30/24 History diclofenac sodium 50 mg 50 mg PO DAILY 06/12/23 01/30/24 History tablet,delayed release diclofenac sodium 3 % topical gel 1 applic topical BID #100 grams 01/01/24 01/30/24 Rx New Prescriptions to Start Prescriptions: Allergies Allergy/AdvReac Type Severity Reaction Status Date / Time sulfamethoxazole (From AdvReac Verified 10/24/23 11:52 Bactrim) trimethoprim (From Bactrim) AdvReac Verified 10/24/23 11:52 Assessment and Plan *Assessment and plan (1) Bilateral hip pain: Status: Acute Category: Medical Code(s): M25.551 - Pain in right hip; M25.552 - Pain in left hip (2) Degenerative disc disease, lumbar: Status: Acute Category: Medical Code(s): M51.369 - Other intervertebral disc degeneration, lumbar region without mention of lumbar back pain or lower extremity pain (3) Lumbar radiculopathy: Status: Acute Category: Medical Code(s): M54.16 - Radiculopathy, lumbar region (4) Bilateral sacroiliitis: Status: Acute Category: Medical Code(s): M46.1 - Sacroiliitis, not elsewhere classified (5) Right shoulder pain: Status: Acute Category: Medical Code(s): M25.511 - Pain in right shoulder Plan Patient is still experiencing some chronic pain along her right low back as well as chronic pain in her right shoulder related to needing a total shoulder replacement. I did discuss at length with the patient regarding having a second opinion to make sure that she is seeing someone who does shoulder surgeries day in and day out especially with her extent of osteoporosis history. I did review over with her regarding [facility] and who Pat had recommended. We will send a referral over to Dr. Page there at [facility] and also I will reach out to Pat and see if he can also help get her in sooner rather than later for evaluation. Patient agrees with this plan of care. I will plan on following up with the patient in 1 month via telehealth appointment. Patient has been instructed to contact the clinic with any concerns before the next appointment. Dr. Peacock has reviewed this note and agrees with this plan of care. This note was dictated using voice recognition software and make contain errors or omissions. All injections are used with Lidocaine, Bupivacaine and Depo Medrol. Occasionally urine drug screen is needed to verify patient's compliance with our office pain contract. This is ordered based off specific treatments related to chronic pain with the potential to abuse certain medications.
[2024-02-19 13:43] VITALS: BP 158/80; PULSE 82; RESP 14; O2SAT 97; BMI 19.1
== END 2024-02-19 23:59 | disposition home or self-care (01) ==
LOC: SC.PAIN 11:14
PROVIDERS: PCP Internal Medicine; Visit Provider Nurse Practitioner Family
DX: M25.551 Pain in right hip (principal); M25.552 Pain in left hip; M46.1 Sacroiliitis, not elsewhere classified; M25.511 Pain in right shoulder; M51.16 Intervertebral disc disorders with radiculopathy, lumbar region
CPT/HCPCS: 99212; G0463

== ENCOUNTER 2024-03-21 13:14 | Outpatient (POV) | payer MEDICARE, SELFPAY ==
--- NOTE | 2024-03-21 13:54 | A.OFFVIS_ITS ---
[facility] Disclaimer: The information contained in this section may have been updated after the patient was seen, as this information can be updated by other users. Medical History (Updated 02/19/24 @ 12:13 by Christina Scherer APRN) No significant past medical history Family History Other Family history of myocardial infarction Heart disease Pacemaker Social History Smoking Status: Unknown if ever smoked alcohol intake: never current occupational status: other Travel in the last 8 weeks: None PM Subjective & Objective Subjective Subjective:: Patient is a pleasant 78-year-old female who presents today for follow-up via telehealth appointment. She is having this appointment while she is currently hospitalized for her right shoulder replacement that was done on Monday. She does state that she is doing overall pretty well from this. Today she rates her pain a 5 out of 10. She does state that this is a combination between her right shoulder and her low back. She does state that she had a lot of pain last night with the right shoulder and that they did give her morphine and it did ease down the pain. She states she has already been up doing physical therapy today and it does seem to be doing much better.She is prescribed compounded cream from our office. Her Sameer has been reviewed and is appropriate. Review of Systems: General: No recent weight changes, no fever, no sleep disturbances Respiratory: No cough, no shortness of air, no recurring pulmonary infections Cardiovascular/peripheral vascular: No chest pain, no palpitations, no edema, no shortness of breath Gastrointestinal: No new onset incontinence, normal bowel movements reported Genitourinary: No new onset incontinence Musculoskeletal: [] Psychiatric: [Normal mood/affect] Neurological: [Denies weakness in extremities], [denies balance issues] Pain at rest (0-10 scale): 5 Objective Objective:: General: Alert and oriented x3, pleasant and cooperative Lungs: Patient is able to say complete sentences without dyspnea Neurological: Speech clear Has patient had previous pain injection?: No Conservative treatment options previously tried: Home exercise plan Length of treatment: Longer than 12 weeks Meds Home Medications and Allergies Home Medications ?Medication ?Instructions ?Recorded ?Confirmed ?Type alendronate 70 mg tablet 70 mg PO WEEKLY 04/25/23 02/19/24 History gabapentin 300 mg capsule 300 mg PO TID 04/25/23 02/19/24 History lisinopril 20 mg tablet 20 mg PO DAILY 04/25/23 02/19/24 History diclofenac sodium 50 mg 50 mg PO DAILY 06/12/23 02/19/24 History tablet,delayed release diclofenac sodium 3 % topical gel 1 applic topical BID #100 grams 01/01/24 02/19/24 Rx New Prescriptions to Start Prescriptions: Allergies Allergy/AdvReac Type Severity Reaction Status Date / Time sulfamethoxazole (From AdvReac Verified 10/24/23 11:52 Bactrim) trimethoprim (From Bactrim) AdvReac Verified 10/24/23 11:52 Assessment and Plan *Assessment and plan (1) Right shoulder pain: Status: Acute Category: Medical Code(s): M25.511 - Pain in right shoulder (2) Lumbar radiculopathy: Status: Acute Category: Medical Code(s): M54.16 - Radiculopathy, lumbar region (3) Degenerative disc disease, lumbar: Status: Acute Category: Medical Code(s): M51.369 - Other intervertebral disc degeneration, lumbar region without mention of lumbar back pain or lower extremity pain (4) Bilateral hip pain: Status: Acute Category: Medical Code(s): M25.551 - Pain in right hip; M25.552 - Pain in left hip (5) Bilateral sacroiliitis: Status: Acute Category: Medical Code(s): M46.1 - Sacroiliitis, not elsewhere classified Plan Patient did give verbal consent for this audio appointment today. I did discuss with her that we will follow-up with her in 6 weeks to allow her more time to recover from her shoulder replacement surgery. We will also continue to monitor her low back pain and see if she does need additional injections including the bilateral SI injections with her last ones in January. Patient agrees with this plan of care. This visit did last - Patient did give verbal consent for this audio telehealth appointment patient has been instructed to contact the clinic with any concerns before the next appointment. Dr. Peacock has reviewed this note and agrees with this plan of care. This note was dictated using voice recognition software and make contain errors or omissions. All injections are used with Lidocaine, Bupivacaine and Depo Medrol. Occasionally urine drug screen is needed to verify patient's compliance with our office pain contract. This is ordered based off specific treatments related to chronic pain with the potential to abuse certain medications.
== END 2024-03-21 23:59 | disposition home or self-care (01) ==
LOC: SC.PAIN 13:16
PROVIDERS: Visit Provider Nurse Practitioner Family
DX: M25.511 Pain in right shoulder (principal); M51.16 Intervertebral disc disorders with radiculopathy, lumbar region; M25.551 Pain in right hip; M25.552 Pain in left hip; M46.1 Sacroiliitis, not elsewhere classified
CPT/HCPCS: 99212; G0463

== ENCOUNTER 2024-05-09 10:42 | Outpatient (POV) | payer MEDICARE, SELFPAY ==
[2024-05-09 11:39] VITALS: BP 150/83; BP 155/81; PULSE 69; RESP 14; O2SAT 97; BMI 19.4
--- NOTE | 2024-05-09 12:00 | A.OFFVIS_ITS ---
[facility] Disclaimer: The information contained in this section may have been updated after the patient was seen, as this information can be updated by other users. Medical History No significant past medical history Family History Other Family history of myocardial infarction Heart disease Pacemaker Social History Smoking Status: Unknown if ever smoked alcohol intake: never current occupational status: other Travel in the last 8 weeks: None PM Subjective & Objective Subjective Subjective:: Patient is a pleasant 78-year-old female who presents today for follow-up and wo rsening pain. She does write her overall pain most prominent in her low back, groin area that does radiate down to her feet bilaterally. Patient feels like she has even had more swelling. Patient states the pain is interfering with her ability perform activities of daily living such as cooking and cleaning. Patient did just recover from right shoulder replacement and has done really well with this. She denies any problems from the replacement. Patient does also make mention that she would also like to start proceeding forward with the spinal cord stimulator trial. Patient had had a psychological evaluation and was deemed an appropriate candidate before her shoulder replacement however had put that off until after she had recovered from the surgery. Patient does state that she would really like to see if this is going to provide her more significant improvement on a daily basis. Patient has continued conservative treatment including oral medications, heat and ice, topicals, at home stretching exercise for longer than 12 weeks with no additional changes. Patient is very active and would like to be able to do more on a day-to-day basis. Patient is prescribed compounded cream from our office. Her Sameer has been reviewed and is appropriate. Review of Systems: General: No recent weight changes, no fever, no sleep disturbances Respiratory: No cough, no shortness of air, no recurring pulmonary infections Cardiovascular/peripheral vascular: No chest pain, no palpitations, no edema, no shortness of breath Gastrointestinal: No new onset incontinence, normal bowel movements reported Genitourinary: No new onset incontinence Musculoskeletal: Low back pain, bilateral hip/groin pain/bilateral leg numbness tingling Psychiatric: [Normal mood/affect] Neurological: [Denies weakness in extremities], [denies balance issues] Pain at rest (0-10 scale): 5 Objective Objective:: Physical Exam: General: Alert and oriented x3, no acute distress, pleasant and cooperative Lungs: Respirations even and unlabored, symmetrical chest expansion Eyes: PERRL Musculoskeletal: Flexion and extension of lumbar [spine] somewhat guarded secondary to pain, [antalgic gait noted] positive leg raise Neurological: Speech clear, no gross sensory deficit Has patient had previous pain injection?: No Conservative treatment options previously tried: Home exercise plan Length of treatment: Longer than 12 weeks Meds Home Medications and Allergies Home Medications ?Medication ?Instructions ?Recorded ?Confirmed ?Type alendronate 70 mg tablet 70 mg PO WEEKLY 04/25/23 05/09/24 History gabapentin 300 mg capsule 300 mg PO TID 04/25/23 05/09/24 History lisinopril 20 mg tablet 20 mg PO DAILY 04/25/23 05/09/24 History diclofenac sodium 50 mg 50 mg PO DAILY 06/12/23 05/09/24 History tablet,delayed release diclofenac sodium 3 % topical gel 1 applic topical BID #100 grams 01/01/24 05/09/24 Rx New Prescriptions to Start Prescriptions: Allergies Allergy/AdvReac Type Severity Reaction Status Date / Time sulfamethoxazole (From AdvReac Verified 10/24/23 11:52 Bactrim) trimethoprim (From Bactrim) AdvReac Verified 10/24/23 11:52 Assessment and Plan *Assessment and plan (1) Lumbar radiculopathy: Status: Acute Category: Medical Code(s): M54.16 - Radiculopathy, lumbar region (2) Degenerative disc disease, lumbar: Status: Acute Category: Medical Code(s): M51.369 - Other intervertebral disc degeneration, lumbar region without mention of lumbar back pain or lower extremity pain (3) Bilateral hip pain: Status: Acute Category: Medical Code(s): M25.551 - Pain in right hip; M25.552 - Pain in left hip Plan Patient is experiencing worsening pain throughout her low back with radiating symptoms to her hip and groin and down her bilateral legs with numbness and tingling. Patient did have limited range of motion of her lumbar spine with positive leg raise. I did discuss with the patient that I do believe she would benefit from a repeat lumbar epidural steroid injection. Patient risk and benefits were discussed and she would like to proceed forward with this option. I did also review over the spinal cord stimulator trial risk and benefits. We will plan on proceeding forward with both the injection and spinal cord stimulator trial in June. Patient has continued and failed conservative treatment including oral medication, heat and ice, topicals, physical therapy, at home stretching exercise that was physician guided for longer than 12 weeks. Patient will be scheduled for an LESI L5-S1 under fluoroscopy. Patient had her last lumbar epidural back in December 2023 of L4-L5 that did provide 50% improvement. Patient does have longstanding back pain with radiating symptoms for longer than 6 months with no additional changes. Patient will also be submitted for the spinal cord stimulator trial under fluoroscopy. Patient has had a psychological evaluation and was deemed an appropriate candidate for this device. Patient agrees with these options and plan of care. Patient has been instructed to contact the clinic with any concerns before the next appointment. Dr. Peacock has reviewed this note and agrees with this plan of care. This note was dictated using voice recognition software and make contain errors or omissions. All injections are used with Lidocaine, Bupivacaine and Depo Medrol. Occasionally urine drug screen is needed to verify patient's compliance with our office pain contract. This is ordered based off specific treatments related to chronic pain with the potential to abuse certain medications.
== END 2024-05-09 23:59 | disposition home or self-care (01) ==
LOC: SC.PAIN 10:49
PROVIDERS: PCP Internal Medicine; Visit Provider Nurse Practitioner Family
DX: M51.16 Intervertebral disc disorders with radiculopathy, lumbar region (principal); M25.551 Pain in right hip; M25.552 Pain in left hip; Z73.89 Other problems related to life management difficulty; Z96.611 Presence of right artificial shoulder joint
CPT/HCPCS: 99212; G0463

== ENCOUNTER 2024-06-11 11:15 | Day surgery (SDC) | payer MEDICARE, SELFPAY ==
[2024-06-11 11:22] VITALS: BP 142/76; PULSE 72; RESP 17; TEMP 36.8; O2SAT 99; BMI 19.7
[2024-06-11 11:41] VITALS: BP 142/76; PULSE 72; RESP 18; O2SAT 98
[2024-06-11] MEDS: methylPREDNISolone ACETATE 80MG/ML VIAL 80 MG (11:41)
[2024-06-11 11:48] VITALS: BP 142/76; PULSE 72; RESP 18; O2SAT 98
[2024-06-11 11:50] VITALS: BP 154/85; PULSE 78; RESP 17; O2SAT 99
--- NOTE | 2024-06-11 12:34 | P.PCN_ITS ---
Procedure Date: 06/11/24 Time: 11:00 Anesthesiologist:: Kingston Ram CRNA Complications:: None Pre-procedure Diagnosis:: Degenerative disc lumbar spine multilevels. Lumbar radiculopathy. Lumbar spondylosis. Multilevel lumbar facet arthropathy. Post-procedure Diagnosis:: Same. Indications for Procedure:: Patient is a pleasant 78-year-old female who comes our clinic today for a lumbar epidural steroid injection at the L5-S1 level. Patient describes low lumbar back pain as well as bilateral hip and leg radicular symptoms. She rates her pain 7/10. Procedure Details:: Procedure: Lumbar epidural steroid injection under fluoroscopy Informed consent was obtained and the risks and benefits of the procedure were explained to the patient. The patient was taken to the procedure room and noninvasive monitors placed, including noninvasive blood pressure cuff and pulse oximeter. The back was viewed using C-arm Fluoroscopy and prepped using Chloraprep as a cleansing solution and the L5-S1 interspace was palpated. Skin and subcutaneous tissues were anesthetized using lidocaine 1.5% and a 25-gauge needle. After this, an 18-gauge Touhy epidural needle was placed into the L5-S1 interspace and advanced using fluoroscopic guidance and loss of resistance to air until the epidural space was encountered. After confirmation of needle placement in the epidural space, with dye, a solution containing normal saline, 3 mL and Depo-Medrol 80 mg were incrementally injected into the lumbar epidural space. The patient tolerated the procedure well with no complications. The patient was observed in the Pain Clinic and then discharged home neuro logically intact. Plan and Disposition:: Patient was discharged without incident.
== END 2024-06-11 11:50 | disposition home or self-care (01) ==
LOC: SC.PAINP 11:17
PROVIDERS: PCP Internal Medicine; Visit Provider Nurse Anesthetist, Certified Registered
DX: M51.16 Intervertebral disc disorders with radiculopathy, lumbar region (principal); M47.26 Other spondylosis with radiculopathy, lumbar region
CPT/HCPCS: 62323; J1010

== ENCOUNTER 2024-06-25 14:57 | Outpatient (POV) | payer MEDICARE, SELFPAY ==
--- NOTE | 2024-06-25 15:01 | A.OFFVIS_ITS ---
[facility] Disclaimer: The information contained in this section may have been updated after the patient was seen, as this information can be updated by other users. Medical History (Updated 06/25/24 @ 15:29 by Christina Scherer APRN) No significant past medical history Family History Other Family history of myocardial infarction Heart disease Pacemaker Social History Smoking Status: Unknown if ever smoked alcohol intake: never current occupational status: other Travel in the last 8 weeks: None PM Subjective & Objective Subjective Subjective:: Patient is a pleasant 78-year-old female who presents today for follow-up of l umbar epidural steroid injection L5-S1 on 06/11/2024. Today she rates her pain a 3 out of 10. Patient denies any new falls or injuries. She does state that she has had improvement in her overall low back from this injection however she has been having worsening pain primarily in the right groin and is her bilateral hips. She states this pain is worse with increased activity and that on bad days it goes to a 9 out of 10. She states that it is hard to gauge exactly how much relief the epidural did due to this pain. She states that it is interfering with her ability perform activities of daily living such as cooking and cleaning. She denies any other changes. Patient is prescribed compounded cream from our office. Patient is still scheduled to go see a provider for her psychological evaluation to proceed forward with a spinal cord stimulator trial in future. Her Sameer has been reviewed and is appropriate. Review of Systems: General: No recent weight changes, no fever, no sleep disturbances Respiratory: No cough, no shortness of air, no recurring pulmonary infections Cardiovascular/peripheral vascular: No chest pain, no palpitations, no edema, no shortness of breath Gastrointestinal: No new onset incontinence, normal bowel movements reported Genitourinary: No new onset incontinence Musculoskeletal: Bilateral hip pain, right groin pain Psychiatric: [Normal mood/affect] Neurological: [Denies weakness in extremities], [denies balance issues] Pain at rest (0-10 scale): 9 Objective Objective:: Physical Exam: General: Alert and oriented x3, no acute distress, pleasant and cooperative Lungs: Respirations even and unlabored, symmetrical chest expansion Eyes: PERRL Musculoskeletal: Flexion and extension of lumbar [spine] somewhat guarded secondary to pain, [antalgic gait noted] point tenderness along bilateral SIs with positive bilateral Jacob's, Ashia's, Gaenslen's, compression and distraction exam Neurological: Speech clear, no gross sensory deficit Has patient had previous pain injection?: Yes Percent improvement in pain since last injection: Moderate Conservative treatment options previously tried: Home exercise plan Length of treatment: Longer than 12 weeks Meds Home Medications and Allergies Home Medications ?Medication ?Instructions ?Recorded ?Confirmed ?Type alendronate 70 mg tablet 70 mg PO WEEKLY 04/25/23 06/11/24 History gabapentin 300 mg capsule 300 mg PO TID 04/25/23 06/11/24 History lisinopril 20 mg tablet 20 mg PO DAILY 04/25/23 06/11/24 History diclofenac sodium 50 mg 50 mg PO DAILY 06/12/23 06/11/24 History tablet,delayed release diclofenac sodium 3 % topical gel 1 applic topical BID #100 grams 01/01/24 06/11/24 Rx New Prescriptions to Start Prescriptions: Allergies Allergy/AdvReac Type Severity Reaction Status Date / Time sulfamethoxazole (From AdvReac Unknown Verified 06/11/24 11:22 Bactrim) allergy reaction trimethoprim (From Bactrim) AdvReac Unknown Verified 06/11/24 11:22 allergy reaction Assessment and Plan *Assessment and plan (1) Bilateral sacroiliitis: Status: Acute Category: Medical Code(s): M46.1 - Sacroiliitis, not elsewhere classified (2) Bilateral hip pain: Status: Acute Category: Medical Code(s): M25.551 - Pain in right hip; M25.552 - Pain in left hip (3) Right groin pain: Status: Acute Category: Medical Code(s): R10.31 - Right lower quadrant pain Plan Patient is experiencing worsening pain along her bilateral hips and right groin. She did have point tenderness along bilateral SI joints and a positive bilateral Jacob's, Ashia's, Gaenslen's, compression and distraction exam. I did discuss with the patient that I do believe they would benefit from bilateral SI injections. Risk and benefits were discussed with the patient and they would like to proceed forward with this option. Patient has tried and failed conservative therapy including continued at home stretching exercise for longer than 12 weeks. Patient has had chronic sacroiliitis in the past with her last injections in January 2024. Those injections did provide 80% relief initially and did decrease down to about 50% provide at the 2-week katey. Patient has not had worsening pain in this location since. These did provide significant relief however is always had worsening symptoms along the right side. Patient will be scheduled for bilateral SI injections under fluoroscopy. Patient has been instructed to contact the clinic with any concerns before the next appointment. Dr. Peacock has reviewed this note and agrees with this plan of care. This note was dictated using voice recognition software and make contain errors or omissions. All injections are used with Lidocaine or Bupivacaine and dexamethasone.
[2024-06-25 15:28] VITALS: BP 128/59; PULSE 65; RESP 18; O2SAT 97; BMI 19.5
== END 2024-06-25 23:59 | disposition home or self-care (01) ==
LOC: SC.PAIN 15:01
PROVIDERS: PCP Internal Medicine; Visit Provider Nurse Practitioner Family
DX: M46.1 Sacroiliitis, not elsewhere classified (principal); M25.551 Pain in right hip; M25.552 Pain in left hip; R10.31 Right lower quadrant pain; Z73.89 Other problems related to life management difficulty
CPT/HCPCS: 99212; G0463

== ENCOUNTER 2024-07-23 14:03 | Day surgery (SDC) | payer MEDICARE, SELFPAY ==
[2024-07-23 14:17] VITALS: BP 169/62; PULSE 67; RESP 16; TEMP 36.8; O2SAT 98; BMI 19.1
--- NOTE | 2024-07-23 14:27 | P.PCN_ITS ---
Procedure Date: 07/23/24 Time: 14:40 Anesthesiologist:: Kingston Ram CRNA Complications:: None Pre-procedure Diagnosis:: Bilateral sacroiliitis Post-procedure Diagnosis:: Same Indications for Procedure:: Patient is a very pleasant 78-year-old female who comes our clinic today for bilateral sacroiliac joint injection cortisone local anesthetic. Patient describes low lumbar back pain off midline bilaterally. Bilateral posterior hip pain. Difficulty transitioning from sitting to standing. Difficulty with ambulation. She rates her pain 7/10. Procedure Details:: Procedure: Bilateral sacroiliac joint injections under fluoroscopy Informed consent was obtained and the risks and benefits of the procedure were explained to the patient.~ The patient was taken to the procedure room and noninvasive monitors were placed including a noninvasive blood pressure cuff and pulse oximeter.~ The patient was placed prone on the procedure table. Both hips were cleansed using Betadine as a cleansing solution. C-arm fluoroscopy was used to view the right sacroiliac joint.~ The skin and subcutaneous tissues were anesthetized using lidocaine 1.5% and a 25-gauge needle.~ After this, a 22-gauge spinal needle was inserted under fluoroscopic guidance into the inferior aspect of the right sacroiliac joint.~ Omnipaque dye was injected and good spread was seen throughout the joint.~ After this, approximately 5 mL of bupivacaine, 0.25% and Depo-Medrol, 40 mg was incrementally injected into the right sacroiliac joint. We then moved to the left sacroiliac joint.~ The skin and subcutaneous tissues were anesthetized using lidocaine 1.5% and a 25-gauge needle.~ After this, a 22- gauge spinal needle was inserted under fluoroscopic guidance into the inferior aspect of the left sacroiliac joint.~ Omnipaque dye was injected and good spread was seen throughout the joint. After this, approximately 5 mL of bupivacaine, 0.25% and Depo-Medrol, 40 mg was incrementally injected into the left sacroiliac joint.~ The patient tolerated the procedure well with no complications. The patient was observed in the Pain Clinic and then was discharged home neurologically intact. Plan and Disposition:: Patient was discharged without incident.
[2024-07-23 14:31] VITALS: BP 150/80; PULSE 69; RESP 16; O2SAT 98
[2024-07-23] MEDS: BUPIVACAINE 0.25% 10ML INJ 25 MG IJ (14:31)
[2024-07-23] MEDS: LIDOCAINE 1% 30ML PF VIAL 30 ML (14:31)
[2024-07-23] MEDS: DEXAMETHASONE 10MG/ML 1ML VIAL 10 MG (14:31)
[2024-07-23 14:32] VITALS: BP 169/62; PULSE 67; RESP 18; O2SAT 98
[2024-07-23 14:33] VITALS: BP 169/62; PULSE 67; RESP 18; O2SAT 98
== END 2024-07-23 14:31 | disposition home or self-care (01) ==
PROVIDERS: PCP Internal Medicine; Visit Provider Nurse Anesthetist, Certified Registered
DX: M46.1 Sacroiliitis, not elsewhere classified (principal)
CPT/HCPCS: G0260; J1100

== ENCOUNTER 2024-08-12 10:46 | Outpatient (POV) | payer MEDICARE, SELFPAY ==
--- OUTSIDE RECORDS SUMMARY | 2024-08-12 10:53 | XMS_ITS | Clinical Summary ---
Author Organization [facility] Address [address] [place] [address] Phone Care Team Providers Care Tea Blender Name Role Phone Butch LARA Stone Richardson [phone] Conditions or Problems Problem Name Problem Code Onset Date Status Entry Date Provider Comment Standard Description Annotate SPINAL STENOSIS, LUMBAR REGION WITH NEUROGENIC CLAUDICATION 498584731 (SNOMED CT) 11/14 Active 11/22 Elin Fernando [employer] Neurogenic claudication SCOLIOSIS DEFORMITY OF SPINE 059887146 (SNOMED CT) 11/14 Active 11/22 Elin Fernando [employer] Scoliosis deformity of spine SPONDYLOLISTH ESIS 265138664 (SNOMED CT) 11/14 Active 11/14 [facility] Spondylolisthesis Medications Medication Instructions Start Date Stop Date Generic Name NDC Provider GABAPENTIN 100 MG CAPS Take 1-3 capsule by mouth three times a day may increase dose as tolerated to up to 300 mg TID; start at 100mg TID 1 gabapentin [id number] Elin Fernando [employer] Medications Administered No information available. Allergies, Adverse Reactions, Alerts Observed no known allergies at Results No information available. Plan of Care Type Date Detail Pending order KIRT x 1 therapeu tic injection & follow up with ordering MD Pending order X-Ray Lumbar AP Lateral & Flexion/Extension Procedures No information available. Vital Signs No information available. Immunizations No information available. Advance Directives No information available.
--- OUTSIDE RECORDS SUMMARY | 2024-08-12 10:54 | XMS_ITS | Clinical Summary ---
Author Organization [facility] Address [address] [place] [id number] Care Team Providers Care Vice President Financial Name Role Phone John Walls MD Primary Care Provider [phone] Source Comments This information has been disclosed to you from confidential records protectedfrom disclosure by state law. You shall make no further disclosure of thisinformation without the specific, written, and informed release of theindividual to whom it pertains, or as otherwise permitted by law. A generalauthorization for the release of medical or other information is not sufficientfor the purposes of therelease of HIV test results or diagnoses. [id number] Allergies No known active allergies Medications lisinopriL (PRINIVIL) 20 MG tablet Take 1 tablet (20 mg total) by mouth daily. Active alendronate (FOSAMAX) 70 mg/75 mL solution Take 75 mLs (70 mg total) by mouth every 7 days. Active cholecalciferol , vitamin D3, 1000 units tablet Take 1 tablet (1,000 Units total) by mouth daily. Active ascorbic acid, vitamin C, (VITAMIN C) 100 MG tablet Take 1 tablet (100 mg total) by mouth daily. Active gabapentin (NEURONTIN) 100 MG capsule Take 1 capsule (100 mg total) by mouth 3 times a day. Active acetaminophen (TYLENOL EXTRA STRENGTH) 500 MG tablet Take 2 tablets every 6 hours by oral route as needed. Active pantoprazole (PROTONIX) 40 MG tablet Take 1 tablet (40 mg total) by mouth every morning before breakfast. 30 tablet 11/03/2023 Active Social History Tobacco Use Types Packs/Day Years Used Date Smoking Tobacco: Never Smokeless Tobacco: Never Tobacco Cessation:Counseling Given: Not Answered Alcohol Use Standard Drinks/Week Comments Never 0 (1 standard drink = 0.6 oz pur e alcohol) PHQ-2 Answer Date Recorded PHQ-2 Total Score 1 10/11/2023 Yearly Questionnaire Answer Date Record ed Do you need any assistance w ith obtaining housing, meals, medication, transportation or medical equipment? No 10/10 Assistance needed for: Not on file 4 Yearly Questionnaire Answer Date Record ed Do you need any assistance w ith obtaining housing, meals, medication, transportation or medical equipment? No 10/10 Assistance needed for: Not on file 4 Yearly Questionnaire Answer Date Record ed Do you need any assistance w ith obtaining housing, meals, medication, transportation or medical equipment? No 10/10 Assistance needed for: Not on file 4 Comments Unknown Sex and Gender Information Value Date Recorded Sex Assigned at Not on file Legal Sex Female 9:46 AM EDT Gender Identity Not on file Sexual Orientation Not on file Last Filed Vital Signs Vital Sign Reading Time Taken Comments Blood Pressure 172/78 11/03/2023 3:00 PM EDT Pulse 70 11/03/2023 1:02 PM EDT Temperature 36.2 C (97.2 F) 11/03/2023 2:29 PM EDT Respiratory Rate 16 11/03/2023 3:00 PM EDT Oxygen Saturation 98% 11/03/2023 3:00 PM EDT Inhaled Oxygen Concentration 98% 11/03/2023 3 :00 PM EDT Weight 54.4 kg (120 lb) 11/03/2023 1:02 PM EDT Height 170.2 cm (5' 7 ) 11/03/2023 1:02 PM EDT Body Mass Index 18.79 11/03/2023 1:02 PM EDT Plan of Treatment Health Maintenance Due Date Last Done Comments Immunization: Pneumococcal ( 1 of 1 - PCV) 1994 Immunization: Zoster (1 of 2) 1994 Osteoporosis Screening (DXA Scan) 1994 Immunization: DTaP/Tdap/Td ( 1 - Tdap) 05/12/1996 05/11/1996 Immunization: RSV (Adult) (1 - 1-dose 75+ series) 10/03/2019 Immunization: COVID-19 ( season) 2023 02/12/2021, 06/04/2020, 05/06/2020, Additional history exists Depression Screening 10/10/2024 10/11/2023 Immunization: Influenza (MyC zambrano) (Season Ended) 2024 01/10/2023, 04/08/2019, 04/09/2018, Additional history exists Insurance MEDICARE A AND B Member Subscriber Plan / Payer (Ef fective 2009-Present) Name:Brandee Dupree Relation to Subscriber:Self Name:Brandee Dupree Payer ID:[id number] Group ID:Not on file Type:Medicare Address: [address] Care Teams Vice President Financial Relationship Specialty Start Date End Date John Walls MD [address] [place] [address] PCP - General Internal Medicine 10/11/23
--- OUTSIDE RECORDS SUMMARY | 2024-08-12 10:54 | XMS_ITS | Continuity of Care Document ---
Author Organization [facility] Address [address] [place] [address] [place] [address] Care Team Providers Care Material Lister Name Role Phone DAVID MOROCHO Primary Care Provider DAVID MOROCHO Primary Care Provider Unavaila ble Assessment No assessment recorded. Plan of Treatment Reminders Order Date Submit Date Provider Last Modified By Organization Details Last Modified Time Details Appointments 6 MONTH FU 15 2024 10:00A M David Edwards rd, MD Not available Not available Not available ORT EST 15 2025 09:00A M Brian Patterson MD Not available Not available Not available Lab None recorded. Referral None recorded. Procedures None recorded. Surgeries None recorded. Imaging XR, shoulder 2024 025 [email or web address] [facility], [address] [place] [address] [place], [address], 07/22/2024 14:35:10 Medication Orders None recorded. Patient TargetsNo targets recorded. Patient InstructionsNo instructions recorded. Reason for Referral None Reported. Results Created Date Observation Date Name Description Value Unit Range Abnormal Flag Note LastModifiedBy Organization Detail LastModifiedTime 07/03/19 25 XR, knee No observ ation record ed. ALEJANDRA [address] [place], [address], 07/02/2024 14:09:42 07/23/19 25 XR, shoul tabitha No observ ation record ed. ALEJANDRA [place] [id number] [facility] , [place], [address], 07/22/2024 14:30:28 Result Notes None recorded. Problems Name Problem SNOMED Code Status Onset Date Resolution Date Notes Provider Name and Address Organization Details Recorded Time Full thickness rotator cuff tear 354324571 Active [address], MD [address] [place] [address],[address], [address], [place] - [facility] - [place] & [place] 4 15:38:49 Standardize d adult depression screening tool completed [id number] 07 Active [address], MD [address] [place] [address],[address], [address], [place] [facility] & [place] 5 12:58:37 Diastolic dysfunction 9825977 Active [address], MD [address] [place] [address],[address], [address], [place] & [place] 5 15:16:24 Edema of left lower limb 173120736 Active [address], MD [address] [place] [address],[address], [address], [place] & [place] 5 12:37:46 Dizziness 648204421 Active 2021 jillian briones null, [place] & [place] 3 11:06:01 Essential hypertensio n 66216662 Active 2022 jillian briones null, [place] & [place] 3 11:06:10 Osteoarthri tis of right knee joint 2867969785702 00 Active 2022 jillian briones null, [place] & [place] 3 11:11:35 Sciatica 68774665 Active 2022 jillian briones null[place] & [place] 3 11:11:[address] [facility] 35165752 Active 2022 jillian grigsby, [place] [facility] & [place] 3 11:11:59 Osteoporosi s 04116397 Active 2022 jillian stollur calista, [place] - [place] & [place] 3 11:12:12 Generalized osteoarthri tis 362363908 Active [address], MD [address] [place] [address],[address], [address], [place] & [place] 3 12:25:30 Lumbar spondylosis with myelopathy 10188023 Active [address], MD [address] [place] [address],[address] [place] [address], [address], [place] & [place] 4 09:49:34 Acquired dilation of bile duct 1161134474637 108 Active 2023 Stone Ward MD [address] [place] [address],[address], [address], [place] [facility] [place] & [place] 4 17:11:00 Pancreatic duct disorder 882310846 Active 2023 Stone Ward MD [address] [place] [address],[address] [place], [address], [place] [facility] & [place] 4 17:12:24 Gastric ulcer 651969412 Active 2023 Stone Ward MD [address] [place] [address],[address] [place], [address], [place] [facility] & [place] 4 15:46:00 Problem Notes None recorded. Procedures Surgical History Date Name Laterality Status Provider Name and Address Organization Details Recorded Time fixation of hip completed jillian anali [place] - [place] & [place] 11/16/2021 15:11:04 procedure on knee completed jillian Lincoln [facility] & [place] 11/16/2021 15:11:27 complete repair of rotator cuff completed Hortensia FAIRBANKS [facility] & [place] 01/10/2023 09:57:48 complete repair of rotator cuff completed Hortensia Lincoln [facility] & [place] 01/10/2023 09:57:51 Imaging Results None recorded. Procedure Notes None recorded. Medical Equipment None Reported. Allergies No known drug allergies Medications Name Sig Start Date Stop Date Status Note LastModified by Organization Details LastModified Time prednison e 10 mg tablet Take 4 tablets every day by oral route as directed for 15 days. 10/28 completed Not Available Not Available Not Available rabeprazo le 20 mg tablet,de layed release TAKE 1 TABLET BY MOUTH DAILY active Not Available Not Available No t Available clindamyc in HCl 300 mg capsule TAKE 1 CAPSULE BY MOUTH EVERY 6 HOURS FOR 10 DAYS active Not Available Not Available No t Available hydrocodo ne 5 mg-acetam inophen 325 mg tablet Take 1 tablet 3 times a day by oral route as needed for 30 days. 2024 active Not Available Not Available Not Avai lable lisinopri l 20 mg tablet TAKE 1 TABLET BY MOUTH DAILY active Not Available Not Available No t Available bupivacai ne HCl 0.5 % (5 mg/mL) injection solution Take 10 mg by injectio n route. 04/10 completed Not Available Not Available Not Available prednison e 20 mg tablet TAKE 2 TABLETS BY MOUTH ONCE DAILY FOR 5 DAYS 01/24 completed Not Available Not Available Not Available alendrona te 70 mg tablet TAKE 1 TABLET BY MOUTH WEEKLY WITH 8 OZ OF PLAIN WATER 30 MINUTES BEFORE FIRST FOOD, DRINK OR MEDS. STAY UPRIGHT FOR 30 MINS 12/03 completed Not Available Not Available Not Available tramadol 50 mg tablet Take 1 tablet every 6 hours by oral route as needed for 30 days. 01/10 completed Not Available Not Available Not Available cefadroxi l 500 mg capsule TAKE 1 CAPSULE BY MOUTH TWICE DAILY UNTIL GONE 04/29 completed Not Available Not Available Not Available oxycodone -acetamin ophen 5 mg-325 mg tablet TAKE 1 TABLET BY MOUTH EVERY 4 HOURS NEEDED FOR PAIN 05/16 completed Not Available Not Available Not Available potassium chloride ER 20 mEq tablet,ex tended release(p art/cryst ) TAKE 1 TABLET BY MOUTH ONCE DAILY NEEDED FOR POTASSIU M REPLACEM ENT active Not Available Not Available No t Available Kenalog 10 mg/mL suspensio n for injection Take 20 mg by injectio n route. 04/10 completed Not Available Not Available Not Available meclizine 25 mg tablet Take 1 tablet 3 times a day by oral route as needed for 10 days. 10/06 completed Not Available Not Available Not Available cephalexi n 500 mg capsule Take 1 capsule every 6 hours by oral route for 10 days. 01/09 completed Not Available Not Available Not Available pantopraz ole 40 mg tablet,de layed release Take 1 tablet every day by oral route for 30 days. 12/03 completed Not Available Not Available Not Available lisinopri l 10 mg tablet Take 1 tablet every day by oral route in the morning for 90 days. 04/11 completed Not Available Not Available Not Available Tums E-X 300 mg (as calcium carbonate 750 mg) chewable tablet Take 1 tablet every day by oral route. 12/03 completed OTC Not Available Not Available Not Available ibuprofen 400 mg tablet 01/17 completed Not Available Not Available Not Available gabapenti n 300 mg capsule TAKE 1 CAPSULE BY MOUTH THREE TIMES DAILY active Not Available Not Available No t Available omeprazol e 20 mg capsule,d elayed release 04/29 completed Not Available Not Available Not Available lisinopri l 5 mg tablet Take 1 tablet every day by oral route as directed . 04/11 completed Not Available Not Available Not Available diclofena c sodium 50 mg tablet,de layed release TAKE 1 TABLET BY MOUTH TWICE DAILY 12/03 completed Not Available Not Available Not Available furosemid e 20 mg tablet Take 1 tablet every day by oral route as needed for 30 days, for ankle swelling . active Not Available Not Available No t Available gabapenti n 100 mg capsule Take 1 capsule 3 times a day by oral route for 90 days. 03/28 completed Patient states she only takes twice a day Not Available Not Available Not Available ondansetr on 4 mg disintegr ating tablet 04/29 completed Not Available Not Available Not Available naproxen 500 mg tablet TAKE 1 TABLET BY MOUTH TWICE DAILY 04/10 completed Not Available Not Available Not Available Tylenol Extra Strength 500 mg tablet Take 2 tablets every 6 hours by oral route as needed. active OTC Not Available Not Available No t Available Vitamin C orally daily 10/10 completed Pt stopped Not Available Not Available Not Available Vitamin D As Directed -OTC active OTC Not Available Not Available No t Available Calcium 500 once daily 10/10 completed Pt stopped Not Available Not Available Not Available Prolia 60 mg/mL subcutane ous syringe Inject 1 mL every day by subcutan eous route for 1 day, for osteopor osis. 2023 active Not Available Not Available Not Avai lable calcium 600 mg (as carbonate )-vitamin D3 25 mcg (1,000 unit) capsule Take 1 capsule twice a day by oral route as directed for 90 days. 10/06 completed Not Available Not Available Not Available Xarelto 10 mg tablet 04/29 completed Not Available Not Available Not Available Vitals Date Recorded Body height Provider Name an d Address Organization Details Last Updated DateTime 07/22/2024 170.18 cm Liza Cmaden [facility] & [place] 07/22/2024 14:19:34 Social History Question Answer Notes LastModified by Organizat ion Details LastModified Time Tobacco Smoking Status Never Smoker jillian grigsby, [facility] & [place] 04/06/2022 11:12:39 Do You Have An Advance Directive? No [email or web address] Information not available 10/10/2022 Are You Blind Or Do You Have Difficulty Seeing? No [email or web address] Information not available 10/10/2022 Is Blood Transfusion Acceptable In An Emergency? Yes [email or web address] Information not available 01/24/2023 What Is Your Level Of Caffeine Consumption? Occasional [email or web address] Information not available 01/24/2023 In The 14 Days Before Symptom Onset, Have You Had Close Contact With A Laboratory-[facility] COVID-19 While That Case Was Ill? No [email or web address] Information not available 01/24/2023 In The 14 Days Before Symptom Onset, Have You Had Close Contact With A Person Who Is Under Investigation For COVID-19 While That Person Was Ill? No [email or web address] Information not available 01/24/2023 Have You Been To An Area Known To Be High Risk For COVID-19? No [email or web address] Information not available 01/24/2023 Are You Deaf Or Do You Have Serious Difficulty Hearing? No [email or web address] Information not available 01/24/2023 What Type Of Diet Are You Following? REGULAR [email or web address] Information not available 01/24/2023 Have You Processed Blood Or Body Fluids From An Ebola Virus Disease Patient Without Appropriate PPE? No [email or web address] Information not available 01/24/2023 Do You Reside In Or Have You Traveled To An Area Where Ebola Virus Transmission Is Active? No [email or web address] Information not available 01/24/2023 How Many Days Of Moderate To Strenuous Exercise, Like A Brisk Walk, Did You Do In The Last 7 Days? 5 [email or web address] Information not available 01/24/2023 On Those Days That You Engage In Moderate To Strenuous Exercise, How Many Minutes, On Average, Do You Exercise? 60 [email or web address] Information not available 01/24/2023 Have There Been Any Changes To Your Family Or Social Situation? No [email or web address] Information no t available 01/24/2023 What Is The Fluoride Status Of Your Home? Fluoridated [email or web address] Information not available 01/24/2023 Have You Recently Or Are You Planning To Travel To An Area With Zika Virus? No [email or web address] Information not available 01/24/2023 Do You Use Insect Repellent Routinely? No [email or web address] Information not available 01/24/2023 In General, Would You Say Your Health Is Good [email or web address] Information not available 10/10/2022 How Would You Describe The Condition Of Your Mouth And Teeth including False Teeth Or Dentures? Very Good [email or web address] Information not available 10/10/2022 In The Past 7 Days, How Many Servings Of Fruits And Vegetables Did You Typically Eat Each Day? (1 Serving = 1 Cup Of Fresh Vegetables, 1 2 Cup Of Cooked Vegetables, Or 1 Medium Piece Of Fruit. 1 Cup = Size Of A Baseball.) 5-6 Servings Per Day [email or web address] Information not available 10/10/2022 In The Past 7 Days, How Many Servings Of High Fiber Or Whole Grain Foods Did You Typically Eat Each Day? (1 Serving = 1 Slice Of 100% Whole Wheat Bread, 1 Cup Of Whole-grain Or High-fiber Fpepi-lp-tbq Cereal, 1 2 Cup Of Cooked Cereal Such As Oatmeal, Or 1 2 Cup Of Cooked Brown Rice Or Whole Wheat Pasta.) 3-4 Servings Per Day [email or web address] Information not available 10/10/2022 In The Past 7 Days, How Many Servings Of Fried Or High-fat Foods Did You Typically Eat Each Day? (Examples Include Fried Chicken, Fried Fish, Sands, Burmese [place], Potato Chips, [place] Chips, Doughnuts, Creamy Salad Dressings, And Foods Made With Whole Milk, Cream, Cheese, Or Mayonnaise.) 1-2 Servings Per Day [email or web address] Information not available 10/10/2022 In The Past 7 Days, How Many Sugar-sweetened (not Diet) Beverages Did You Typically Consume Each Day 3-4 Drinks Per Day Information not available 10/10/2022 Each Night, How Many Hours Of Sleep Do You Usually Get? 5-6 Hours [email or web address] Information not available 10/10/2022 Do You Snore Or Has Anyone Told You That You Snore? Yes Information not available 10/10/2022 In The Past 7 Days, How Often Have You [place] Sleepy During The Daytime? Sometimes [email or web address] Information not available 10/10/2022 Do You Have Chronic Pain? Yes [email or web address] Information not available 10/10/2022 In The Past 7 Days, How Would You Rate Your Pain? Severe Pain(7-9) [email or web address] Information not available 10/10/2022 Are You In A Pain Management Program? No Information not available 10/10/2022 Do You Take Opioids For Your Pain? No [email or web address] Information not available 10/10/2022 How Often Is Stress A Problem For You In Handling Such Things As: Your Health, Your Finances, Your Family And Social Relationships, Your Work? Sometimes Information not available 10/10/2022 How Often Do You Get The Social And Emotional Support You Need: Always [email or web address] Information no t available 10/10/2022 In The Past 7 Days, Did You Need Help From Others To Take Care Of Things Such As Laundry And Housekeep- Ing, Banking, Shopping, Using The Telephone, Food Preparation, Transportation, Or Taking Your Own Medications? No [email or web address] Information not available 10/10/2022 Do You Live Alone? No [email or web address] Information not available 10/10/2022 Does Your Home Have Any Fall Risks (un-level Floors, Unfastened Rugs, Poor Lighting, Etc)? No [email or web address] Information not available 10/10/2022 What Was The Date Of Your Most Recent Tobacco Screening? 05/22/2024 [email or web address] Information not available 05/22/2024 How Many Children Do You Have? 0 [email or web address] Information not available 01/24/2023 Do You Have Any Pets? No [email or web address] Information not available 01/24/2023 What Is Your Relationship Status? [email or web address] Information not available 01/24/2023 Do You Use Your Seat Belt Or Car Seat Routinely? Yes [email or web address] Information not available 01/24/2023 Are You Sexually Active? No [email or web address] Information not available 01/24/2023 Do You Have Smoke And Carbon Monoxide Detectors In Your Home? Yes [email or web address] Information not available 01/24/2023 Are You Passively Exposed To Smoke? No [email or web address] Information no t available 10/10/2022 What Types Of Sporting Activities Do You Participate In? None [email or web address] Information not available 01/24/2023 Do You Use Sunscreen Routinely? No [email or web address] Information not available 01/24/2023 Has Tobacco Cessation Counseling Been Provided? No [email or web address] Information not available 01/24/2023 Do You Have Difficulty Walking Or Climbing Stairs? Yes [email or web address] Information not available 01/24/2023 Are You Currently In School? No [email or web address] Information not available 01/24/2023 What Contraceptive Method Was Reported At Start Of This Visit? None [email or web address] Information not available 01/24/2023 What Contraceptive Method Was Reported At End Of This Visit? None [email or web address] Information not available 01/24/2023 Do You Want To Talk About Contraception Or Prevention During Your Visit Today? No - I Do Not Want To Talk About Contraception Today Because I Am Here For Something Else [email or web address] Information not available 01/24/2023 Do You Have Any Future Plans To Get ? No, I Don't Want To Become [email or web address] Information not available 01/24/2023 What Is Your Reason For Having No Contraceptive Method At Start Of This Visit? Abstinence [email or web address] Information not available 01/24/2023 What Is Your Reason For Having No Contraceptive Method At End Of This Visit? Abstinence [email or web address] Information not available 01/24/2023 Sex: Female Functional Status Question Answer Note LastModified by Organizat ion Details LastModified Time Do you use any illicit or recreational drugs? No [email or web address] Information not available 04/06/2022 Do you or have you ever used any other forms of tobacco or nicotine? No [email or web address] Information not available 01/24/2023 What is your level of alcohol consumption? None [email or web address] Information not available 04/06/2022 Are you currently employed? No [email or web address] Information not available 01/24/2023 Do you have transportation difficulties? No [email or web address] Information not available 01/24/2023 What is your status? Not [email or web address] Information no t available 01/24/2023 Are you able to walk? YESWOREST [email or web address] Information not available 01/24/2023 Do you have difficulty doing errands alone? No [email or web address] Information not available 01/24/2023 Are you able to care for yourself? Yes [email or web address] Information n ot available 01/24/2023 Do you have difficulty dressing or bathing? No [email or web address] Information not available 01/24/2023 What is your exercise level? Moderate [email or web address] Information not available 10/10/2022 Mental Status Question Answer Note LastModified by Organizat ion Details LastModified Time Do you feel stressed (tense, restless, nervous, or anxious, or unable to sleep at night)? [id number] [email or web address] Information not available 10/10/2022 Do you have difficulty concentrating, remembering or making decisions? No [email or web address] Information no t available 01/24/2023 Family History Relationship Description Onset Age of this Age Resolved Age Notes LastModified by Organization Details LastModified Time Father Essential hypertension [email or web address] Not available 15:10:19 Mother Essential hypertension [email or web address] Not available 15:10:19 Medical History Condition Response Coronary Artery Disease N Gout N None N Colon Cancer N Kidney Stones N Hyperthyroidism N Depression N COPD N Hypothyroidism N Difficulty Swallowing N Diverticulitis/Diverticulosis N Anxiety Disorder N Meniere's disease N Obesity N Arthritis Y Mental Disorder N Cancer N Stroke N High Cholesterol N Liver Disease N Fibromyalgia N Kidney Disease N Osteoporosis/Osteopenia N Anemia N MRSA exposure N Diabetes N Bleeding Disorder N Seizures/Epilepsy N Tuberculosis N AIDS/HIV N Congestive Heart Failure (CHF) N Hyperlipidemia N Diverticulitis N Asthma N Reflux/GERD N Jaundice N Sleep Apnea N GERD/Reflux N Hepatitis N Cirrhosis N Heart Disease N Pulmonary Embolism N Chronic Ear Infections N Hypertension Y Osteoporosis Y Gynecological HistoryNo gynecological history recorded. Obstetrics History GPAL:G 0 P 0 0 0 0 Immunizations Vaccine Type Date Status Note Provider Nam e and Address Organization Details Recorded Time Influenza, split virus, quadrivalent, PF 3 completed [place], [place] [facility] [facility] 01/10/2023 11:26:48 COVID-19, mRNA, LNP-S, PF, 100 mcg/0.5mL dose or 50 mcg/0.25mL dose [facility] [place] 08/17/2022 13:25:10 Influenza, high-dose, trivalent, PF 0 completed [facility] [facility] 08/17/2022 13:25:10 Influenza, split virus, trivalent, preservative 8 completed [place], [place] - [facility] [facility] 08/17/2022 13:25:10 Td (adult), 2 Lf tetanus toxoid, preservative free, adsorbed 7 completed [place], [place] - [facility] & [place] 08/17/2022 13:25:10 Influenza, split virus, quadrivalent, PF 9 completed Eduarda [place], [place] [facility] [facility] & [place] 08/17/2022 13:25:10 COVID-19, mRNA, LNP-S, PF, 100 mcg/0.5mL dose or 50 mcg/0.25mL dose 1 completed Not Available [facility] 04/10/2023 09:05:03 COVID-19, mRNA, LNP-S, PF, 100 mcg/0.5mL dose or 50 mcg/0.25mL dose 1 completed Eduarda [place], [place] [facility] - [place] & [place] 08/17/2022 13:25:10 COVID-19, mRNA, LNP-S, PF, 100 mcg/0.5mL dose or 50 mcg/0.25mL dose 1 completed Eduarda [place], [place] [facility] & [place] 08/17/2022 13:25:10 Past Encounters Encounter ID Performer Location Encounter Start Date Encounter Closed Date Diagnosis/Indication Diagnosis SNOMED-CT Code Diagnosis ICD10 Code Diagnosis Note [id number] Brian Patterson MD De[place]re [place] 17[address]556[address] 07/02/2024 13:55:16 07/02/2024 14:29:34 Pain of knee region 6516693855 M25.562 Prepatella r bursitis of left knee 9500916493 37937 M70.42 [id number] GEORGES RED NP [address] [address] 07/22/2024 14:07:32 07/22/2024 14:43:39 History of reverse prosthetic total arthroplasty of right shoulder 8883052776 0309250 Z96.611 Prepatella r bursitis of left knee 6057766304 07805 M70.42 Health Concerns Section Related Observation LastModified by Organization Detai ls LastModified Time None Recorded Concern Status LastModified by Organization Details LastModified Time None Recorded Payers Encounter Date Sequence Insurance Name Policy Number Policy Rico Covered Member ID Rico Member ID Guarantor Name 07/22/2024 1 [place] Brandee Dupree [id number] Brandee Dupree 07/22/2024 2 AARP (MEDICARE SUPPLEMENT) PLAN F Brandee Dupree [id number] Dupree Notes Date Note Type Note Provider Name and Address Organization Details Recorded Time 07/22/2024 text/html Pt is here for f/u of her rt reverse from Mar 2024. She reports the shoulder is a little sore from mowing her grass. Her left knee pes bursitis is better. She is no-longer on ABX. Doing well-[id number] GEORGES RED, KIERAN [address] [facility],[address], [place], [address], [facility] - [facility] 07/22/2024 14:45:34 OBGyn Episode No OBEpisode recorded.
--- OUTSIDE RECORDS SUMMARY | 2024-08-12 10:54 | XMS_ITS | Clinical Summary ---
Author Organization [facility] Address [address] [address] Phone Care Team Providers Care Shoer Name Role Phone John Walls MD Primary Care Provider Allergies No known active allergies Medications lisinopril (PRINIVIL;ZESTR IL) 5 mg Oral Tablet Take 5 mg by mouth daily. Active oxyCODONE-aceta minophen (PERCOCET) 5-325 mg Oral Tablet Take 1-2 tablets by mouth every 4 hours as needed for Pain. 40 tablet 0 11/08/2013 Active oxyCODONE (ROXICODONE) 5 mg Oral Tablet Take 1-2 Tabs by mouth every 4 hours as needed for Pain. 40 Tab 0 02/28/2014 Active Surgical History Surgery Date Site/Laterality Comments FOREARM FRACTURE SURGERY Left x2 SHOULDER ARTHROSCOPY 11/08/2013 Right RIGHT SHOULDER ARTHROSCOPY OPEN ROTATOR CUFF REPAIR DECOMPRESSION ACROMIOPLASTY ACROMIOCLAVICULAR JOINT EXCISION LABRAL REPAIR (AMBIT) (GEN/SCALENE); Surgeon: Juan Alberto Christy MD; Location: [facility]; Service: Orthopedics Medical devices from this surgery are in the Medical Devices section. EYE SURGERY Bilateral cataracts SHOULDER ARTHROSCOPY 02/28/2014 Right RIGHT SHOULDER ARTHROSCOPY OPEN ROTATOR CUFF REPAIR; Surgeon: Juan Alberto Christy MD; Location: [facility]; Service: Orthopedics Medical devices from this surgery are in the Medical Devices section. Medical History Medical History Date Comments Arthritis Postoperative nausea and vomiting Family History Medical History Relation Name Comments Defects Daughter Hearing Loss Father Early Mother High Blood Pressure Sister Anesth Problems Neg Hx Relation Name Status Comments Daughter Father Mother Sister Social History Tobacco Use Types Packs/Day Years Used Date Smoking Tobacco: Never Smokeless Tobacco: Never Alcohol Use Standard Drinks/Week Comments No 0 (1 standard drink = 0.6 oz pur e alcohol) Comments No Sex and Gender Information Value Date Recorded Sex Assigned at Not on file Legal Sex Female 2:31 PM EDT Gender Identity Not on file Sexual Orientation Not on file Obstetrics History Para Term AB IAB SAB Ectopic Multiple Livin g Live Births 1 1 Date Outcome GA Total Labor Labor/2nd/3rd Weight Sex Type Anes PTL Shanice A1 A5 Name Clin Para Last Filed Vital Signs Vital Sign Reading Time Taken Comments Blood Pressure 118/78 02/28/2014 1:09 PM EST Pulse 80 02/28/2014 1:09 PM EST Temperature 36.3 C (97.4 F) 02/28/2014 12:44 PM EST Respiratory Rate 16 02/28/2014 1:09 PM EST Oxygen Saturation 97% 02/28/2014 1:09 PM EST Inhaled Oxygen Concentration - - Weight 72.1 kg (159 lb) 02/28/2014 8:37 AM EST Height 170.2 cm (5' 7 ) 02/28/2014 8:37 AM EST Body Mass Index 24.9 02/28/2014 8:37 AM EST Plan of Treatment Health Maintenance Due Date Last Done Comments Wellness Exam Medicare 10/03/1948 Hepatitis C Screening 1962 DTaP/TDaP/Td (1 - Tdap) 10/03/1963 Pneumococcal Vaccine 50+ (1 of 1 - PCV) 1994 Zoster (1 of 2) 1994 Bone Density Screening 2009 RSV or 60+ (1 - 1-d ose 75+ series) 10/03/2019 COVID-19 Vaccine ( - 2023-2 5 season) 2023 Influenza Vaccine (Season Ended) 2024 Hepatitis B Vaccine Aged Out No longe r eligible based on patient's age to complete this topic Meningococcal B Vaccine Aged Out No l onger eligible based on patient's age to complete this topic Medical Devices Implanted Type Area Nps Device Identifier Shelf Expiration Date Model / Serial / Lot Bilateral Iol [place] [employer] Single Size 1 - [id number] Implanted:Qty: 1 on 11/08/2013 by Juan Alberto Christy MD at [facility] Right: Shoulder BIOMET 01/08/2018 [id number] / / [id number] [place] [employer] 2.9 With [employer] [place] - [id number] Implanted:Qty: 2 on 11/08/2013 by Juan Alberto Christy MD at [facility] Right: Shoulder BIOMET 08/08/2018 [id number] / / [id number] [place] [employer] 2.9 With [employer] [place] - [id number] Implanted:Qty: 1 on 02/28/2014 by Juan Alberto Christy MD at [facility] Right: Shoulder BIOMET 09/02/2018 [id number] / / [id number] [place] [employer] 2.9 With [employer] [place] - [id number] Implanted:Qty: 1 on 02/28/2014 by Juan Alberto Christy MD at [facility] Right: Shoulder BIOMET 09/02/2018 [id number] / / [id number] Insurance MEDICARE [place] PART A AND B [address] SUPPLEMENTAL Care Teams Shoer Relationship Specialty Start Date End Date John Walls MD [address] [place] [address] PCP - General Internal Medicine 11/08/13
--- OUTSIDE RECORDS SUMMARY | 2024-08-12 10:54 | XMS_ITS | Continuity of Care Document ---
Author Organization [facility]ACIE TIKI [facility] [place], [facility] Address [address] [place] [address] Care Team Providers Care Online Merchandising Manager Name Role Phone DAVID WALLS Primary Care Provider DAVID WALLS Primary Care Provider Unavaila ble Assessment No assessment recorded. Plan of Treatment Reminders Order Date Submit Date Provider Last Modified By Organization Details Last Modified Time Details Appointments 6 MONTH FU 15 025 10:00AM David Edwards rd, MD Not available Not available Not available ORT EST 15 026 09:00AM Brian Patterson MD Not available Not available Not available Lab None recorde d. Referral None recorde d. Procedures None recorde d. Surgeries None recorde d. Imaging None recorde d. Medication Orders None recorde d. Patient TargetsNo targets recorded. Patient InstructionsNo instructions recorded. Reason for Referral None Reported. Results Created Date Observation Date Name Description Value Unit Range Abnormal Flag Note LastModifiedBy Organization Detail LastModifiedTime 06/06/19 25 XR, shoul tabitha No observ ation record ed. ALEJANDRA [address] [place], [address], 06/05/2024 10:34:05 07/03/19 25 XR, knee No observ ation record ed. ALEJANDRA [address] [place], [address], 07/02/2024 14:09:42 07/23/19 25 XR, shoul tabitha No observ ation record ed. ALEJANDRA [facility] [address] [facility] , [place], [address], 07/22/2024 14:30:28 Result Notes None recorded. Problems Name Problem SNOMED Code Status Onset Date Resolution Date Notes Provider Name and Address Organization Details Recorded Time Full thickness rotator cuff tear 283081174 Active [address], [address] [place] [address],Ashlee te [address] [place] [address], [phone], [place] - [facility] - [place] & [place] 4 15:38:49 Standardize d adult depression screening tool completed 4798858082445 07 Active [address], MD [address] [place] [address],Ashlee te [address] [place] [address], [phone], [place] [facility] - [place] & [place] 5 12:58:37 Diastolic dysfunction 2408906 Active [address], MD [address] [place] [address],Ashlee te [facility], [place], [address], [place] [facility] - [place] & [place] 5 15:16:24 Edema of left lower limb 160355314 Active [address], MD [address] [place] [address],Ashlee te [address] [place] [address], [phone], [place] [facility] [place] 5 12:37:46 Dizziness 316718132 Active 2021 jillian grigsby, [place] - [facility] - [place] & [place] 3 11:06:01 Essential hypertensio n 97041675 Active 2022 jillian briones null, [place] - [facility] & [place] 3 11:06:10 Osteoarthri tis of right knee joint 0208486129835 00 Active 2022 jillian briones null, [place] - [facility] [place] 3 11:11:35 Sciatica 06209148 Active 2022 jillian anali null, [place] - [facility] & [place] 3 11:11:48 [place]menopau [place] 57340528 Active 2022 jillian anali null, [place] [facility] [place] 3 11:11:59 Osteoporosi s 58692592 Active 2022 jillian anali null, [place] - [facility] [place] 3 11:12:12 Generalized osteoarthri tis 191750447 Active [address], MD [address] [place] [address],Ashlee te [address] [place] [address], [phone], [place] [facility] & [place] 3 12:25:30 Lumbar spondylosis with myelopathy 09552964 Active [address], MD [address] [place] [address],Ashlee te [address] [place] [address], [phone], [place] [facility] - [place] & [place] 4 09:49:34 Acquired dilation of bile duct 2041472335755 108 Active 2023 Stone Ward MD [address] [place] [address],[place]lee [place] [address], [address], [place] [facility] - [place] & [place] 4 17:11:00 Pancreatic duct disorder 690928369 Active 2023 Stone Ward MD [address] [place] [address],[place] [address] [place], [address], [place] [facility] - [place] & [place] 4 17:12:24 Gastric ulcer 503507011 Active 2023 Stone Ward MD [address] [place] [address],[place] [address] [place], [address], [place] [facility] & [place] 4 15:46:00 Problem Notes None recorded. Procedures Surgical History Date Name Laterality Status Provider Name and Address Organization Details Recorded Time fixation of hip completed jillian anali [facility] [place] 11/16/2021 15:11:04 procedure on knee completed jillian [facility] [place] 11/16/2021 15:11:27 complete repair of rotator cuff completed Hortensia [facility] [place] 01/10/2023 09:57:48 complete repair of rotator cuff completed Hortensia [facility] [place] 01/10/2023 09:57:51 Imaging Results None recorded. Procedure [...] Not Available Vitals Date Recorded Body height Body mass index (BMI) Body weight Body temperature Oxygen saturation Oxygen saturation in Arterial blood by Pulse oximetry Heart rate Respiratory rate Systolic blood pressure Diastolic blood pressure Provider Name and Address Organization Details Last Updated DateTime 5 170.18 cm 19.8 kg/m2 85396.7 4 g 97.6 [degF] 94 % 94 % 60 /min 18 /min 154 mm[Hg] 80 mm[Hg] Eduarda HESTER [facility] [place] 09:37:46 Social History Question Answer Notes LastModified by Organizat ion Details LastModified Time Tobacco Smoking Status Never Smoker KAICE roldan [facility] [place] 04/06/2022 11:12:39 Do You Have An Advance Directive? No [email or web address] Information not available 10/10/2022 Are You Blind Or Do You Have Difficulty Seeing? No [email or web address] Information not available 10/10/2022 Is Blood Transfusion Acceptable In An Emergency? Yes [email or web address] Information not available 01/24/2023 What Is Your Level Of Caffeine Consumption? Occasional [email or web address] Information not available 01/24/2023 In The 14 Days Before Symptom Onset, Have You Had Close Contact With A Laboratory-confir med COVID-19 While That Case Was Ill? [...] Would You Say Your Health Is Good [email or web address] Information not available 10/10/2022 How Would You Describe The Condition Of Your Mouth And Teeth including False Teeth Or Dentures? Very Good [email or web address] Information not available 10/10/2022 In The Past 7 Days, How Many Servings Of Fruits And Vegetables Did You Typically Eat Each Day? (1 Serving = 1 Cup Of Fresh Vegetables, 1 2 Cup Of Cooked Vegetables, Or 1 Medium Piece Of Fruit. 1 Cup = Size Of A Baseball.) 5-6 Servings Per Day [email or web address] Information not available 10/10/2022 In The Past 7 Days, How Many Servings Of High Fiber Or Whole Grain Foods Did You Typically Eat Each Day? (1 Serving = 1 Slice Of 100% Whole Wheat Bread, 1 Cup Of Whole-grain Or High-fiber Xonbg-yc-gkn Cereal, 1 2 Cup Of Cooked Cereal Such As Oatmeal, Or 1 2 Cup Of Cooked Brown Rice Or Whole Wheat Pasta.) 3-4 Servings Per Day [email or web address] Information not available 10/10/2022 In The Past 7 Days, How Many Servings Of Fried Or High-fat Foods Did You Typically Eat Each Day? (Examples Include Fried Chicken, Fried Fish, Sands, [place], Potato Chips, Charlo Chips, Doughnuts, Creamy Salad Dressings, And Foods Made With Whole Milk, Cream, Cheese, Or Mayonnaise.) 1-2 Servings Per Day [email or web address] Information not available 10/10/2022 In The Past 7 Days, How Many Sugar-sweetened (not Diet) Beverages Did You Typically Consume Each Day 3-4 Drinks Per Day Information not available 10/10/2022 Each Night, How Many Hours Of Sleep Do You Usually Get? 5-6 Hours [email or web address] Information not available 10/10/2022 Do You Snore Or Has Anyone Told You That You Snore? Yes [email or web address] Information not available 10/10/2022 In The Past 7 Days, How Often Have You [place] Sleepy During The Daytime? Sometimes Information not available 10/10/2022 Do You Have Chronic Pain? Yes [email or web address] Information not available 10/10/2022 In The Past 7 Days, How Would You Rate Your Pain? Severe Pain(7-9) [email or web address] Information not available 10/10/2022 Are You In A Pain Management Program? No [email or web address] Information not available 10/10/2022 Do You Take Opioids For Your Pain? No [email or web address] Information not available 10/10/2022 How Often Is Stress A Problem For You In Handling Such Things As: Your Health, Your Finances, Your Family And Social Relationships, Your Work? Sometimes [email or web address] Information not available 10/10/2022 How Often Do You Get The Social And Emotional Support You Need: Always [email or web address] Information no t available 10/10/2022 In The Past 7 Days, Did You Need Help From Others To Take Care Of Things Such As Laundry And Housekeep- Ing, Banking, Shopping, Using The Telephone, Food Preparation, Transportation, Or Taking Your Own Medications? No [email or web address] Information not available 10/10/2022 Do You Live Alone? No [email or web address] Information not available 10/10/2022 Does Your Home Have Any Fall Risks (un-level Floors, Unfastened Rugs, Poor Lighting, Etc)? No [email or web address] Information not available 10/10/2022 What Was The Date Of Your Most Recent Tobacco Screening? 05/22/2024 [email or web address] Information not available 05/22/2024 How Many Children [...] Are You Passively Exposed To Smoke? No [email or web address] Information no t available 10/10/2022 What Types [...] use any illicit or recreational drugs? No [email or web address] Information not available 04/06/2022 Do you or have you ever used any other forms of tobacco or nicotine? No [email or web address] Information not available 01/24/2023 What is your level of alcohol consumption? None [email or web address] Information not available 04/06/2022 Are you currently [...] 01/24/2023 What is your exercise level? Moderate [email or web address] Information not available 10/10/2022 Mental Status Question Answer Note LastModified by Organizat ion Details LastModified Time Do you feel stressed (tense, restless, nervous, or anxious, or unable to sleep at night)? [id number] [email or web address] Information not available 10/10/2022 Do you have difficulty concentrating, remembering or making decisions? No [email or web address] Information no t available 01/24/2023 Family History Relationship Description Onset Age of this Age Resolved Age Notes LastModified by Organization Details LastModified Time Father Essential hypertension [email or web address] Not available 15:10:19 Mother Essential hypertension [email or web address] Not available 15:10:19 Medical History Condition Response Coronary Artery Disease N None N Gout N Colon Cancer N Kidney Stones N [...] Influenza, split virus, quadrivalent, PF 3 completed KACIE Waterman - [facility] 01/10/2023 11:26:48 COVID-19, mRNA, LNP-S, PF, 100 mcg/0.5mL dose or 50 mcg/0.25mL dose 1 completed KACIE Waterman - [facility] [place] 08/17/2022 13:25:10 Influenza, high-dose, trivalent, PF 0 completed Eduarda grigsby [place] - [facility] [place] 08/17/2022 13:25:10 Influenza, split virus, trivalent, preservative 8 completed Eduarda grigsby [place] - [facility] [place] 08/17/2022 13:25:10 Td (adult), 2 Lf tetanus toxoid, preservative free, adsorbed 7 completed KACIE Waterman - [facility] [place] 08/17/2022 13:25:10 Influenza, split virus, quadrivalent, PF 9 completed KACIE Waterman [facility] [place] 08/17/2022 13:25:10 COVID-19, mRNA, LNP-S, PF, 100 mcg/0.5mL dose or 50 mcg/0.25mL dose 1 completed Not Available [facility] 04/10/2023 09:05:03 COVID-19, mRNA, LNP-S, PF, 100 mcg/0.5mL dose or 50 mcg/0.25mL dose 1 completed KACIE Waterman [facility] [place] 08/17/2022 13:25:10 COVID-19, mRNA, LNP-S, PF, 100 mcg/0.5mL dose or 50 mcg/0.25mL dose 1 completed KACIE Waterman [facility] [place] 08/17/2022 13:25:10 Past Encounters Encounter ID Performer Location Encounter Start Date Encounter Closed Date Diagnosis/Indication Diagnosis SNOMED-CT Code Diagnosis ICD10 Code Diagnosis Note [id number] David duff MD [facility] [address] [place] [address] 05/16/2024 14:21:18 05/16/2024 15:10:45 Diastolic dysfunction 9676667 I50.32 Issues relative to today's discussion and diagnosis were addressed. All questions were attempted to be addressed and reconciled . Any particular necessary informatio n was dispensed Lumbar spo ndylosis with myelopathy 19428272 M47.16 M48.07 she currently is involved in pain management in his anticipati ng the potential placement of a pain pump. I am going to go on and temporaril y supplement her with some hydrocodon e until she can have her interventi on completed Essential hypertension 90698549 I10 Patient returns today for follow-up of a chronic diagnosis of hypertensi on. Today's evaluation s suggest adequate control of disease process and no need for change in medication currently. systolic is mildly elevated but at her advanced age increasing medication s are only going to increase her stability issues and increase her fall risk. I suspect the addition of the furosemide today we will offset are systolic elevation. [id number] MD [facility] [address] [place] [address] 05/22/2024 12:07:58 05/22/2024 12:34:20 Lumbar spondylosis with myelopathy 78144788 M47.16 M48.07 she currently is involved in pain management in his anticipati ng the potential placement of a pain pump. I am going to go on and temporaril y supplement her with some hydrocodon e until she can have her interventi on completed Diastolic dysfunction 35 79617 I50.32 Issues relative to today's discussion and diagnosis were addressed. All questions were attempted to be addressed and reconciled . Any particular necessary informatio n was dispensed Full thick ness rotator cuff tear 740970236 M75.121 Roxy is currently involved in physical therapy in his responding [facility] ed adult depression screening tool completed [id number] 68721 Z13.31 Routine screening for depression is found to be negative. No interventi ons are required Edema of l eft lower limb 054005330 R60.0 Issues relative to today's discussion and diagnosis were addressed. All questions were attempted to be addressed and reconciled . Any particular necessary informatio n was dispensed I think this is a dependent issue but it is also related to the left extremity being the symptomati c side from her lumbar issues. At this point I think supportive socks are going to be her best answer for the lower extremity [id number] [facility] [address] [place] [address] 06/10/2024 13:08:40 06/10/2024 13:51:23 History of reverse prosthetic total arthroplasty of right shoulder 1720581373 0140372 Z96.724 [id number] DO ANDRES [facility] [address] [place] [address] 06/05/2024 09:35:17 06/05/2024 11:18:42 History of reverse prosthetic total arthroplasty of right shoulder 2217639264 7440930 Z96.695 [id number] David duff MD [facility] [address] [place] [address] 06/14/2024 09:28:45 06/14/2024 12:02:17 Lumbar spondylosis with myelopathy 43069354 M47.16 M48.07 she currently is involved in pain management in his anticipati ng the potential placement of a pain pump. I am going to go on and temporaril y supplement her with some hydrocodon e until she can have her interventi on completed Standardiz ed adult depression screening tool completed 1327267130 44007 Z13.31 Routine screening for depression is found to be negative. No interventi ons are required Edema of l eft lower limb 388791572 R60.0 Issues relative to today's discussion and diagnosis were addressed. All questions were attempted to be addressed and reconciled . Any particular necessary informatio n was dispensed I think this is a dependent issue but it is also related to the left extremity being the symptomati c side from her lumbar issues. At this point I think supportive socks are going to be her best answer for the lower extremity Health Concerns Section Related Observation LastModified by Organization Detai ls LastModified Time None Recorded Concern Status LastModified by Organization Details LastModified Time None Recorded Payers Encounter Date Sequence Insurance Name Policy Number Policy [place] Covered Member ID [place] Member ID Guarantor Name 06/14/2024 1 [place] Brandee Gill [id number] Brandee Dupree 06/14/2024 2 [employer] (MEDICARE SUPPLEMENT) PLAN F Brandee Dupree [id number] Brandee Dupree Notes Date Note Type Note Provider Name and Address Organization Details Recorded Time 06/14/2024 text/html Today is follow-up for bilateral lower extremity fluid retention she is doing much better after Lasix. It is of note that she is getting steroid injections in the lumbar spine that is seems to have some degree of David Walls MD [address] [place] [address],[address], [place], [address], [facility] [place] & [place] 06/14/2024 10:26:23 OBGyn Episode No OBEpisode recorded.
--- OUTSIDE RECORDS SUMMARY | 2024-08-12 10:54 | XMS_ITS | Continuity of Care Document ---
Author Organization [place] - 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 Surgeries None recorde d. Imaging XR, knee [phone] gabbi [facility], [address] [place] [address] [place], [address], 07/03/2024 09:09:40 Medication Orders None recorde d. Patient TargetsNo targets recorded. Patient InstructionsNo instructions recorded. Reason for Referral None Reported. Results Created Date Observation Date Name Description Value Unit Range Abnormal Flag Note LastModifiedBy Organization Detail LastModifiedTime 06/06/19 25 XR, shoul tabitha No observ ation record ed. ALEJANDRA [address] [place], [address], 06/05/2024 10:34:05 07/03/19 25 XR, knee No observ ation record ed. ALEJANDRA Andres [facility] [address] [place], [address], 07/02/2024 14:09:42 07/23/19 25 XR, shoul tabitha No observ ation record ed. ALEJANDRA Andres [address] [place], [address], 07/22/2024 14:30:28 Result Notes None recorded. Problems Name Problem SNOMED Code Status Onset Date Resolution Date Notes Provider Name and Address Organization Details Recorded Time Full thickness rotator cuff tear 086485106 Active [address], MD [address] [place] [address],[facility] te [address] [place] [address], [address], [place] - [facility] - [place] & [place] 4 15:38:49 Standardize d adult depression screening tool completed 2964683017996 07 Active [address], MD [address] [place] [address],[facility]lee te [facility], [place], [address], [place] [facility] [place] 5 12:58:37 Diastolic dysfunction 5369733 Active [address], MD [address] [place] [address],[facility] [address], [place], [address], [place] [facility] [place] & [place] 5 15:16:24 Edema of left lower limb 182571525 Active [address], MD [address] [place] [address],[facility]lee te [facility], [place], [address], [place] [facility] [place] 5 12:37:46 Dizziness 038089803 Active 2021 KACIE roldan - [facility] - [place] & [place] 3 11:06:01 Essential hypertensio n 11010892 Active 2022 jillian grigsby [place] - [facility] - [place] & [place] 3 11:06:10 Osteoarthri tis of right knee joint 1125613391959 00 Active 2022 jillian anali null, [place] - [facility] & [place] 3 11:11:35 Sciatica 20226902 Active 2022 jillian anali null, [place] - [facility] - [place] & [place] 3 11:11:48 Postmenopau [place] 52186028 Active 2022 jillian anali null, [place] - [facility] & [place] 3 11:11:59 Osteoporosi s 86423910 Active 2022 jillian anali null, [place] - [facility] - [facility] & [place] 3 11:12:12 Generalized osteoarthri tis 135997455 Active [address], MD [address] [place] [address],[place]lee te [address] [place] [address], [address], [place] [facility] [place] 3 12:25:30 Lumbar spondylosis with myelopathy 70088680 Active [address], MD [address] [place] [address],[place]lee te [address] [place] [address], [address], [place] [facility] [place] & [place] 4 09:49:34 Acquired dilation of bile duct 0532414399903 108 Active 2023 Stone Ward MD [address] [place] [address],[place]lee te [address] [place] [address], [address], [place] [facility] [place] 4 17:11:00 Pancreatic duct disorder 332982878 Active 2023 Stone Ward MD [address] [place] [address],[place]lee te [address] [place] [address], [address], [place] [facility] [place] & [place] 4 17:12:24 Gastric ulcer 841638021 Active 2023 Stone Ward MD [address] [place] [address],[place] [address], [address], KACIE - TIK[facility] & [place] 15:46:00 Problem Notes None recorded. Procedures Surgical History Date Name Laterality Status Provider Name and Address Organization Details Recorded Time fixation of hip completed jillian HESTER - TIKI [facility] & [place] 11/16/2021 15:11:04 procedure on knee completed jillian FAIRBANKS [facility] & [place] 11/16/2021 15:11:27 complete repair of rotator cuff completed Hortensia HESTER - AKANKSHANT [facility] & [place] 01/10/2023 09:57:48 complete repair of rotator cuff completed Hortensia HESTER - TIKI [facility] & [place] 01/10/2023 09:57:51 Imaging Results None recorded. Procedure [...] Not Available Not Available Not Available Vitals None Recorded Social History Question Answer Notes LastModified by Organizat ion Details LastModified Time Tobacco Smoking Status Never Smoker jillian grigsby, KACIE - [facility] - [place] & [place] 04/06/2022 11:12:39 Do You Have An Advance Directive? No [email or web address] Information not available 10/10/2022 Are You Blind Or Do You Have Difficulty Seeing? No [email or web address] Information not available 10/10/2022 Is Blood Transfusion [...] Would You Say Your Health Is Good [email or web address] Information not available 10/10/2022 How Would You Describe The Condition Of Your Mouth And Teeth including False Teeth Or Dentures? Very Good [email or web address] Information not available 10/10/2022 In The Past 7 Days, How Many Servings Of Fruits And Vegetables Did You Typically Eat Each Day? (1 Serving = 1 Cup Of Fresh Vegetables, 1 2 Cup Of Cooked Vegetables, Or 1 Medium Piece Of Fruit. 1 Cup = Size Of A Baseball.) 5-6 Servings Per Day Information not available 10/10/2022 In The Past 7 Days, How Many Servings Of High Fiber Or Whole Grain Foods Did You Typically Eat Each Day? (1 Serving = 1 Slice Of 100% Whole Wheat Bread, 1 Cup Of Whole-grain Or High-fiber Mkbab-hl-rci Cereal, 1 2 Cup Of Cooked Cereal Such As Oatmeal, Or 1 2 Cup Of Cooked Brown Rice Or Whole Wheat Pasta.) 3-4 Servings Per Day [email or web address] Information not available 10/10/2022 In The Past 7 Days, How Many Servings Of Fried Or High-fat Foods Did You Typically Eat Each Day? (Examples Include Fried Chicken, Fried Fish, Sands, Yoruba [place], Potato Chips, [place] Chips, Doughnuts, Creamy Salad Dressings, And Foods Made With Whole Milk, Cream, Cheese, Or Mayonnaise.) 1-2 Servings Per Day [email or web address] Information not available 10/10/2022 In The Past 7 Days, How Many Sugar-sweetened (not Diet) Beverages Did You Typically Consume Each Day 3-4 Drinks Per Day [email or web address] Information not available 10/10/2022 Each Night, How Many Hours Of Sleep Do You Usually Get? 5-6 Hours [email or web address] Information not available 10/10/2022 Do You Snore Or Has Anyone Told You That You Snore? Yes [email or web address] Information not available 10/10/2022 In The Past 7 Days, How Often Have You [place] During The Daytime? Sometimes [email or web address] Information not available 10/10/2022 Do You Have Chronic Pain? Yes [email or web address] Information not available 10/10/2022 In The Past 7 Days, How Would You Rate Your Pain? Severe Pain(7-9) [email or web address] Information not available 10/10/2022 Are You In A Pain Management Program? No [email or web address] Information not available 10/10/2022 Do You Take Opioids For Your Pain? No [email or web address] Information not available 10/10/2022 How Often Is Stress A Problem For You In Handling Such Things As: Your Health, Your Finances, Your Family And Social Relationships, Your Work? Sometimes [email or web address] Information not available 10/10/2022 How Often Do You Get The Social And Emotional Support You Need: Always [email or web address] Information no t available 10/10/2022 In The Past 7 Days, Did You Need Help From Others To Take Care Of Things Such As Laundry And Housekeep- Ing, Banking, Shopping, Using The Telephone, Food Preparation, Transportation, Or Taking Your Own Medications? No [email or web address] Information not available 10/10/2022 Do You Live Alone? No [email or web address] Information not available 10/10/2022 Does Your Home Have Any Fall Risks (un-level Floors, Unfastened Rugs, Poor Lighting, Etc)? No [email or web address] Information not available 10/10/2022 What Was The Date Of Your Most Recent Tobacco Screening? 05/22/2024 [email or web address] Information not available 05/22/2024 How Many Children [...] Are You Passively Exposed To Smoke? No [email or web address] Information no t available 10/10/2022 What Types [...] use any illicit or recreational drugs? No [email or web address] Information not available 04/06/2022 Do you or have you ever used any other forms of tobacco or nicotine? No [email or web address]-13 Information not available 01/24/2023 What is your level of alcohol consumption? None [email or web address] Information not available 04/06/2022 Are you currently [...] 01/24/2023 What is your exercise level? Moderate [email or web address] Information not available 10/10/2022 Mental Status Question Answer Note LastModified by Organizat ion Details LastModified Time Do you feel stressed (tense, restless, nervous, or anxious, or unable to sleep at night)? [id number] [email or web address] Information not available 10/10/2022 Do you have difficulty concentrating, remembering or making decisions? No [email or web address] Information no t available 01/24/2023 Family History Relationship Description Onset Age of this Age Resolved Age Notes LastModified by Organization Details LastModified Time Father Essential hypertension [email or web address] Not available 15:10:19 Mother Essential hypertension [email or web address] Not available 15:10:19 Medical History Condition Response [...] split virus, quadrivalent, PF 3 completed Eduarda grigsby, [place] - [facility] & [place] 01/10/2023 11:26:48 COVID-19, mRNA, LNP-S, PF, 100 mcg/0.5mL dose or 50 mcg/0.25mL dose 1 completed Eduarda grigsby, [place] - [facility] & [place] 08/17/2022 13:25:10 Influenza, high-dose, trivalent, PF 0 completed Eduarda grigsby [place] - [facility] & [place] 08/17/2022 13:25:10 Influenza, split virus, trivalent, preservative 8 completed Eduarda [place] null, [place] - [facility] & [place] 08/17/2022 13:25:10 Td (adult), 2 Lf tetanus toxoid, preservative free, adsorbed 7 completed Eduarda [place] null, [place] [facility] & [place] 08/17/2022 13:25:10 Influenza, split virus, quadrivalent, PF 9 completed Eduarda grigsby [place] - [facility] & [place] 08/17/2022 13:25:10 COVID-19, mRNA, LNP-S, PF, 100 mcg/0.5mL dose or 50 mcg/0.25mL dose 1 completed Not Available [facility] 04/10/2023 09:05:03 COVID-19, mRNA, LNP-S, PF, 100 mcg/0.5mL dose or 50 mcg/0.25mL dose 1 completed Eduarda grigsby KACIE Latonia FAIRBANKS [facility] & [place] 08/17/2022 13:25:10 COVID-19, mRNA, LNP-S, PF, 100 mcg/0.5mL dose or 50 mcg/0.25mL dose 1 completed Eduarda grigsby KACIE Latonia FAIRBANKS [facility] & [place] 08/17/2022 13:25:10 Past Encounters Encounter ID Performer Location Encounter Start Date Encounter Closed Date Diagnosis/Indication Diagnosis SNOMED-CT Code Diagnosis ICD10 Code Diagnosis Note [id number] KIERAN CHRISTENSEN [facility] [place] [phone] 06/10/2024 13:08:40 06/10/2024 13:51:23 History of reverse prosthetic total arthroplasty of right shoulder [id number] 8228019 Z96.286 [id number] DO ANDRES CASTELLON [place] [id number] 06/05/2024 09:35:17 06/05/2024 11:18:42 History of reverse prosthetic total arthroplasty of right shoulder 5511083189 3013967 Z96.328 [id number] MD ANDRES [facility] [address] [place] [id number] 06/14/2024 09:28:45 06/14/2024 12:02:17 Lumbar spondylosis with myelopathy 45436685 M47.16 M48.07 she currently is involved in pain management in his anticipati ng the potential placement of a pain pump. I am going to go on and temporaril y supplement her with some hydrocodon e until she can have her interventi on completed Standardiz ed adult depression screening tool completed [id number] 73668 Z13.31 Routine screening for depression is found to be negative. No interventi ons are required Edema of l eft lower limb 043759048 R60.0 Issues relative to today's discussion and [...] her best answer for the lower extremity [id number] Brian Patterson MD Deandre madrid [facility] [address] [place] [address] 07/02/2024 13:55:16 07/02/2024 14:29:34 Pain of knee region 6228335217 M25.562 Prepatella r bursitis of left knee 6881382850 07660 M70.42 Health Concerns Section Related Observation LastModified by Organization Detai ls LastModified Time None Recorded Concern Status LastModified by Organization Details LastModified Time None Recorded Payers Encounter Date Sequence Insurance Name Policy Number Policy Rico Covered Member ID Rico Member ID Guarantor Name 07/02/2024 1 [place] Brandee Dupree [id number] Brandee Dupree 07/02/2024 2 AARP (MEDICARE SUPPLEMENT) PLAN F Brandee Leia [id number] Brandee Dupree Notes Date Note Type Note Provider Name and Address Organization Details Recorded Time 07/02/2024 text/html This 78 year old female patient presents in the office today follow up of LEFT knee open area. 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 She reports it was healing well but became inflamed, red, and sore to touch so she went to [facility] ED on 06.26.24 and was started on Clindamycin that she continues at this time. We are getting x-rays in the office today; 07.02.24. She reports it has improved greatly. CHE4 Brian Patterson MD [address] [facility],[address], [place], [address], [facility] & [place] 07/03/2024 09:23:35 OBGyn Episode No OBEpisode recorded.
--- OUTSIDE RECORDS SUMMARY | 2024-08-12 10:54 | XMS_ITS | Data Portability ---
Author Organization [facility] Address [address] [place] [address] Care Team Providers Care Leisure Travel Agent Name Role Phone DAVID MOROCHO Primary Care [...] recorded. Imaging XR, shoulder 2024 025 [email or web address] [facility], [address] [place] [address] [place], [address], 07/22/2024 14:35:10 XR, knee 2024 025 [facility], [address] [place] [address] [place], [address], 07/03/2024 09:09:40 XR, shoulder 2024 025 [email or web address] [facility], [address] [place] [address] [place], [address], 06/05/2024 13:04:58 Medication Orders None recorded. Patient TargetsNo targets recorded. Patient InstructionsNo instructions recorded. Reason for Referral None Reported. Results Created Date Observation Date Name Description Value Unit Range Abnormal Flag Note LastModifiedBy Organization Detail LastModifiedTime 06/06/19 25 XR, shoul tabitha No observ ation record ed. ALEJANDRA Khan [address] [place], [address], 06/05/2024 10:34:05 07/03/19 25 XR, knee No observ ation record ed. ALEJANDRA Khan [address] [place], [address], 07/02/2024 14:09:42 07/23/19 25 XR, shoul tabitha No observ ation record ed. ALEJANDRA Khan [address] [place], [address], 07/22/2024 14:30:28 Result Notes None recorded. Problems Name Problem SNOMED Code Status Onset Date Resolution Date Notes Provider Name and Address Organization Details Recorded Time Full thickness rotator cuff tear 676468790 Active [address], MD [address] [place] [address], [address], [facility] & [place] 4 15:38:49 Standardize d adult depression screening tool completed 5895899535624 07 Active [address], MD [address] [place] [address], [address], [facility] - NT [facility] & [place] 5 12:58:37 Diastolic dysfunction 7488721 Active [address], MD [address] [place] [address], [address], [facility] - [facility] & [place] 5 15:16:24 Edema of left lower limb 408637085 Active [address], MD [address] [place] [address] [address], [place], [address], [place] - [facility] - [place] & [place] 5 12:37:46 Dizziness 079631359 Active 2021 jillian anali null, [place] & [place] 3 11:06:01 Essential hypertensio n 26048655 Active 2022 jillian anali null, [place] & [place] 3 11:06:10 Osteoarthri tis of right knee joint 1930081120486 00 Active 2022 jillian anali null[place] & [place] 3 11:11:35 Sciatica 65689567 Active 2022 jillian anali null[place] & [place] 3 11:11:48 Postmenopau [place] 51394472 Active 2022 jillian anali null[place] & [place] 3 11:11:59 Osteoporosi s 62015260 Active 2022 jillian anali null, [place] & [place] 3 11:12:12 Generalized osteoarthri tis 848511564 Active [address], MD [facility],[address], [place], [address], [place] & [place] 3 12:25:30 Lumbar spondylosis with myelopathy 00304431 Active [address], MD [address] [place] [address],[address], [place], [address], [place] & [place] 4 09:49:34 Acquired dilation of bile duct 9393503843420 108 Active 2023 Stone Ward MD [facility],[address], [place], [address], [place] [facility] & [place] 4 17:11:00 Pancreatic duct disorder 533919735 Active 2023 Stone Ward MD [address] [place] [address],[address], [place], [address], [facility] & [place] 4 17:12:24 Gastric ulcer 954140307 Active 2023 Stone Ward MD [address] [place] [address],[address], [place], [address], KACIE TIKI [facility] & [place] 4 15:46:00 Problem Notes None recorded. Procedures Surgical History Date Name Laterality Status Provider Name and Address Organization Details Recorded Time fixation of hip completed [facility] anali [place] [facility] [place] 11/16/2021 15:11:04 procedure on knee completed jillian anali [employer] [facility] & [place] 11/16/2021 15:11:27 complete repair of rotator cuff completed [facility] & [place] 01/10/2023 09:57:48 complete repair of rotator cuff completed [employer] [facility] & [place] 01/10/2023 09:57:51 Imaging Results None recorded. Procedure [...] and Address Organization Details Last Updated DateTime 170.18 cm 19.8 kg/m2 22275.7 4 g 97.6 [degF] 94 % 94 % 60 /min 18 /min 154 mm[Hg] 80 mm[Hg] Eduarda River [facility] & [place] 09:37:46 Date Recorded Body height Provider Name an d Address Organization Details Last Updated DateTime 07/22/2024 170.18 cm Liza Hannah [facility] & [place] 07/22/2024 14:19:34 Social History Question Answer Notes LastModified by Organizat ion Details LastModified Time Tobacco Smoking Status Never Smoker jillian stollbolivar grigsby, [facility] & [place] 04/06/2022 11:12:39 Do You Have An Advance Directive? No [email or web address] Information not available 10/10/2022 Are You Blind Or Do You Have Difficulty Seeing? No [email or web address] Information not available 10/10/2022 Is Blood Transfusion [...] Would You Say Your Health Is Good [email or web address] Information not available 10/10/2022 How Would You Describe The Condition Of Your Mouth And Teeth including False Teeth Or Dentures? Very Good [email or web address] Information not available 10/10/2022 In The Past 7 Days, How Many Servings Of Fruits And Vegetables Did You Typically Eat Each Day? (1 Serving = 1 Cup Of Fresh Vegetables, 1 2 Cup Of Cooked Vegetables, Or 1 Medium Piece Of Fruit. 1 Cup = Size Of A Baseball.) 5-6 Servings Per Day [email or web address] Information not available 10/10/2022 In The Past 7 Days, How Many Servings Of High Fiber Or Whole Grain Foods Did You Typically Eat Each Day? (1 Serving = 1 Slice Of 100% Whole Wheat Bread, 1 Cup Of Whole-grain Or High-fiber Gloke-wy-hyz Cereal, 1 2 Cup Of Cooked Cereal Such As Oatmeal, Or 1 2 Cup Of Cooked Brown Rice Or Whole Wheat Pasta.) 3-4 Servings Per Day [email or web address] Information not available 10/10/2022 In The Past 7 Days, How Many Servings Of Fried Or High-fat Foods Did You Typically Eat Each Day? (Examples Include Fried Chicken, Fried Fish, Sands, [place], Potato Chips, [place] Chips, Doughnuts, Creamy Salad Dressings, And Foods Made With Whole Milk, Cream, Cheese, Or Mayonnaise.) 1-2 Servings Per Day [email or web address] Information not available 10/10/2022 In The Past 7 Days, How Many Sugar-sweetened (not Diet) Beverages Did You Typically Consume Each Day 3-4 Drinks Per Day [email or web address] Information not available 10/10/2022 Each Night, How Many Hours Of Sleep Do You Usually Get? 5-6 Hours Information not available 10/10/2022 Do You Snore Or Has Anyone Told You That You Snore? Yes Information not available 10/10/2022 In The Past 7 Days, How Often Have You [place] Sleepy During The Daytime? Sometimes [email or web address] Information not available 10/10/2022 Do You Have Chronic Pain? Yes [email or web address] Information not available 10/10/2022 In The Past 7 Days, How Would You Rate Your Pain? Severe Pain(7-9) [email or web address] Information not available 10/10/2022 Are You In A Pain Management Program? No [email or web address] Information not available 10/10/2022 Do You Take Opioids For Your Pain? No [email or web address] Information not available 10/10/2022 How Often Is Stress A Problem For You In Handling Such Things As: Your Health, Your Finances, Your Family And Social Relationships, Your Work? Sometimes [email or web address] Information not available 10/10/2022 How Often Do You Get The Social And Emotional Support You Need: Always [email or web address] Information no t available 10/10/2022 In The Past 7 Days, Did You Need Help From Others To Take Care Of Things Such As Laundry And Housekeep- Ing, Banking, Shopping, Using The Telephone, Food Preparation, Transportation, Or Taking Your Own Medications? No [email or web address] Information not available 10/10/2022 Do You Live Alone? No Information not available 10/10/2022 Does Your Home Have Any Fall Risks (un-level Floors, Unfastened Rugs, Poor Lighting, Etc)? No [email or web address] Information not available 10/10/2022 What Was The Date Of Your Most Recent Tobacco Screening? 05/22/2024 [email or web address] Information not available 05/22/2024 How Many Children [...] Are You Passively Exposed To Smoke? No [email or web address] Information no t available 10/10/2022 What Types [...] use any illicit or recreational drugs? No [email or web address] Information not available 04/06/2022 Do you or have you ever used any other forms of tobacco or nicotine? No [email or web address] Information not available 01/24/2023 What is your level of alcohol consumption? None Information not available 04/06/2022 Are you currently [...] 01/24/2023 What is your exercise level? Moderate [email or web address] Information not available 10/10/2022 Mental Status Question Answer Note LastModified by Organizat ion Details LastModified Time Do you feel stressed (tense, restless, nervous, or anxious, or unable to sleep at night)? [id number] [email or web address] Information not available 10/10/2022 Do you have difficulty concentrating, remembering or making decisions? No [email or web address] Information no t available 01/24/2023 Family History Relationship Description Onset Age of this Age Resolved Age Notes LastModified by Organization Details LastModified Time Father Essential hypertension [email or web address] Not available 15:10:19 Mother Essential hypertension [email or web address] Not available 15:10:19 Medical History Condition Response Coronary Artery Disease N Gout N None N Colon Cancer N Kidney Stones N Hyperthyroidism N Hypothyroidism N COPD N Depression N Difficulty Swallowing N Diverticulitis/Diverticulosis N Meniere's disease N Anxiety Disorder N Obesity N Arthritis Y Mental Disorder [...] split virus, quadrivalent, PF 3 completed Eduarda Perico null[place] - [facility] & [place] 01/10/2023 11:26:48 COVID-19, mRNA, LNP-S, PF, 100 mcg/0.5mL dose or 50 mcg/0.25mL dose 1 completed Eduarda Perico null, [place] - [facility] & [place] 08/17/2022 13:25:10 Influenza, high-dose, trivalent, PF 0 completed Eduarda Perico null[place] [facility] & [place] 08/17/2022 13:25:10 Influenza, split virus, trivalent, preservative 8 completed Eduarda Perico null[place] [facility] & [place] 08/17/2022 13:25:10 Td (adult), 2 Lf tetanus toxoid, preservative free, adsorbed 7 completed Eduarda Perico null[place] [facility] & [place] 08/17/2022 13:25:10 Influenza, split virus, quadrivalent, PF 9 completed Eduarda Perico null[place] [facility] & [place] 08/17/2022 13:25:10 COVID-19, mRNA, LNP-S, PF, 100 mcg/0.5mL dose or 50 mcg/0.25mL dose 1 completed Not Available [facility] 04/10/2023 09:05:03 COVID-19, mRNA, LNP-S, PF, 100 mcg/0.5mL dose or 50 mcg/0.25mL dose 1 completed Eduarda Percio null, [place] - [facility] - [place] & [place] 08/17/2022 13:25:10 COVID-19, mRNA, LNP-S, PF, 100 mcg/0.5mL dose or 50 mcg/0.25mL dose 1 completed Eduarda Perico null, [place] [facility] - [place] & [place] 08/17/2022 13:25:10 Past Encounters Encounter ID Performer Location Encounter Start Date Encounter Closed Date Diagnosis/Indication Diagnosis SNOMED-CT Code Diagnosis ICD10 Code Diagnosis Note [id number] David duff MD [facility] [address] [place] [address] 11/16/2021 13:56:24 11/16/2021 18:20:56 Essential hypertension 25183067 I10 Patient returns today for follow-up of a chronic diagnosis of hypertensi on. Outpatient surveillan ce as demonstrat ed good control, without any issues or complaints of side effect. Today we are finding that she is having some minimal elevation so were going to go on and increase her lisinopril to the 10 mg strength and then do surveillan ce of her 2 weeks Benign par oxysmal positional vertigo 718454728 H81.13 This appears to be in acute exacerbati on of a chronic process for which treatment has been prescribed . Appropriat e Education in regards to signs and symptoms of deteriorat ion were discussed with the patient. As well expectatio ns for progress in treatment and improvemen t were also discussed. The patient was notified for any concerning signs or symptoms that would require urgent re-evaluat ion. [id number] David duff MD [facility] [address] [place] [address] 04/11/2022 10:23:58 04/11/2022 11:43:24 Depression screening 889270653 Z13.31 Appropriat e age related, gender related, and health risk related parameters were addressed today recommenda tions were made for appropriat e wellness studies as indicated. Essential hypertension 23958698 I10 Patient returns today for follow-up of a chronic diagnosis of hypertensi on. Current blood pressure measuremen t is found elevation in our readings. Were going to do 2 weeks of surveillan ce reassess the need for adjustment in medication . Going to go on increased lisinopril to 20 mg from 10 then have her back for a blood pressure recheck in 2 weeks Postmenopausal state 764 [address]3201 Z78.0 This represents a chronic process that has been stable on medication s for extended period of time. Currently there appears to be no toxicity or side effect and good response to treatment. For these reasons we will continue medication s as ordered. Osteoporosis 42602712 M8 1.0 This represents a chronic process that has been stable on medication s for extended period of time. Currently there appears to be no toxicity or side effect and good response to treatment. For these reasons we will continue medication s as ordered. Generalize d osteoarthritis 649423463 M15.9 Patient is on chronic medication for osteoarthr itic disease. Overall level of function is good, and there was no evidence of side effect specifical ly gastric irritation . Ongoing treatment with appropriat e surveillan ce is appropriat e. [id number] MD [facility] [address] [place] [address] 08/24/2022 14:18:33 08/24/2022 15:00:46 Right side sciatica 7760670189 03623 M54.31 This appears to be in acute process for which treatment has been prescribed . Appropriat e Education in regards to signs and symptoms of deteriorat ion were discussed with the patient. As well expectatio ns for progress in treatment and improvemen t were also discussed. The patient was notified for any concerning signs or symptoms that would require urgent re-evaluat ion. Acquired scoliosis 28801 6001 M41.9 this was a radiograph ic finding when they did her back x-ray. Overall she clinically had no symptoms prior I gave her appropriat e Education [id number] David duff MD [facility] [address] [place] [address] 10/10/2022 08:41:37 10/10/2022 09:49:36 Adult health examination 035204363 Z00.01 Appropriat e age related, gender related, and health risk related parameters were addressed today recommenda tions were made for appropriat e wellness studies as indicated. Advance care planning 71 0593559 Z71.89 Issues relative to today's discussion and diagnosis were addressed. All questions were attempted to be addressed and reconciled . Any particular necessary informatio n was dispensed Standardiz ed adult depression screening tool completed 0307348559 24107 Z13.89 Appropriat e age related, gender related, and health risk related parameters were addressed today recommenda tions were made for appropriat e wellness studies as indicated. Essential hypertension 88380270 I10 Patient returns today for follow-up of a chronic diagnosis of hypertensi on. Current blood pressure measuremen t is found elevation in our readings. Were going to do 2 weeks of surveillan ce reassess the need for adjustment in medication . Going to go on increased lisinopril to 20 mg from 10 then have her back for a blood pressure recheck in 2 weeks Generalize d osteoarthritis 956138586 M15.9 Patient is on chronic medication for osteoarthr itic disease. Overall level of function is good, and there was no evidence of side effect specifical ly gastric irritation . Ongoing treatment with appropriat e surveillan ce is appropriat e. Osteoporosis 23419768 M8 1.0 This represents a chronic process that has been stable on medication s for extended period of time. Currently there appears to be no toxicity or side effect and good response to treatment. For these reasons we will continue medication s as ordered. Lumbar spo ndylosis with myelopathy 06707768 M47.16 recent radiograph ic workup shows her to have significan t lumbar disease spondylosi s and some included dextroscol iosis. She has significan t narrowing of the foramen on her symptomati c side the right. We have gone on and scheduled an MRI of which we are waiting to get pre approved. I have gone on to discuss her the options if they appear surgical is she willing and interested to pursue neurosurgi deisy 2nd opinion. She is definitely in agreement Long-term drug therapy 200658939 Z79.899 Surveillan ce laboratory studies have been ordered to assess for the target of treatment as well as any potential end-organ toxicity. [id number] MD [facility] [address] [place] [address] 10/06/2022 15:26:14 10/06/2022 16:08:20 Lumbar spondylosis with myelopathy 92804145 M47.16 Jose returns with significan t pain that is markedly exacerbate d with flexion but she is getting predominan tly right-side d sciatic symptoms. She responded temporaril y to a previous steroid burst. I am going to go on get mechanical films of her back and then do prednisone here at least temporaril y while we try to figure out what options we have. She has significan t osteoporos is so long-term steroids are not a great long-term plan but unfortunat rod her stomach does not tolerate nonsteroid als [id number] MD [facility] [address] [place] [address] 10/28/2022 09:11:21 10/28/2022 10:40:43 Lumbar spondylosis with myelopathy 14512408 M47.16 Patient has scheduled upcoming appointmen t with spinal surgeon. Cellulitis of leg, excluding foot 072664995 L03.119 As stated above, patient presents today with a subjective complaint of right lower extremity erythema and edema that occurred 2 days ago. On physical examinatio n today, there is no evidence of cellulitis , edema, thrombophl ebitis or any other infection. We are going to go ahead and send her a prescripti on for an antibiotic , just in case this does reappear. [id number] MD [facility] [address] [place] [address] 01/10/2023 09:29:53 01/10/2023 11:26:35 Administration of influenza vaccine 55660105 Z23 Essential hypertension 70165416 I10 Patient returns today for follow-up of a chronic diagnosis of hypertensi on. Current blood pressure measuremen t is found elevation in our readings. Were going to do 2 weeks of surveillan ce reassess the need for adjustment in medication . Going to go on increased lisinopril to 20 mg from 10 then have her back for a blood pressure recheck in 2 weeks Generalize d osteoarthritis 854504863 M15.9 Patient is on chronic medication for osteoarthr itic disease. Overall level of function is good, and there was no evidence of side effect specifical ly gastric irritation . Ongoing treatment with appropriat e surveillan ce is appropriat e. Osteoporosis 33839143 M8 1.0 This represents a chronic process that has been stable on medication s for extended period of time. Currently there appears to be no toxicity or side effect and good response to treatment. For these reasons we will continue medication s as ordered. Postmenopausal state 764 [address]7425 Z78.0 This represents a chronic process that has been stable on medication s for extended period of time. Currently there appears to be no toxicity or side effect and good response to treatment. For these reasons we will continue medication s as ordered. Lumbar spo ndylosis with myelopathy 03359028 M47.16 M48.07 We currently are awaiting neurosurgi deisy referral for evaluation . I am going to go on and use tramadol as a temporary pain control measure Standardiz ed adult depression screening tool completed [id number] 31773 Z13.89 Appropriat e age related, gender related, and health risk related parameters were addressed today recommenda tions were made for appropriat e wellness studies as indicated. [id number] MD AND[facility] [address] [place] [address] 01/24/2023 13:32:40 01/24/2023 14:25:44 Osteoarthritis of joint of right shoulder region 2506594003 88784 M19.011 Pain of ri ght hip joint 4829028017 01550 M25.551 [id number] MD ANDRES [facility] [address] [place] [address] 03/07/2023 09:33:37 03/07/2023 10:05:06 Osteoarthritis of right hip joint 0562532146 88173 M16.11 Numbness a nd tingling sensation of skin 6694142654 02 R20.2 [id number] MD [facility] [address] [place] [address] 04/10/2023 09:00:46 04/10/2023 09:50:11 Essential hypertension 00842199 I10 Patient returns today for follow-up of a chronic diagnosis of hypertensi on. Current blood pressure measuremen t is found elevation in our readings. Were going to do 2 weeks of surveillan ce reassess the need for adjustment in medication . Going to go on increased lisinopril to 20 mg from 10 then have her back for a blood pressure recheck in 2 weeks Long-term drug therapy 356867740 Z79.899 Surveillan ce laboratory studies have been ordered to assess for the target of treatment as well as any potential end-organ toxicity. Generalize d osteoarthritis 830037329 M15.9 Patient is on chronic medication for osteoarthr itic disease. Overall level of function is good, and there was no evidence of side effect specifical ly gastric irritation . Ongoing treatment with appropriat e surveillan ce is appropriat e. Lumbar spo ndylosis with myelopathy 58857036 M47.16 M48.07 she currently is involved in pain management in his anticipati ng the potential placement of a pain pump Osteoporosis 32127553 M8 1.0 This represents a chronic process that has been stable on medication s for extended period of time. Currently there appears to be no toxicity or side effect and good response to treatment. For these reasons we will continue medication s as ordered. Chronic lo ng term disease management required: complex needs 550233154 Z76.89 Today's visit is part of long-term chronic disease management as well as chronic wellness management . Ongoing efforts to consolidat e and optimize care is the goal at each visit. Today's visit includes the management of surveillan ce laboratory studies, discussion of their values if necessary, in addition to the interactio n of multiple comorbidit ies, allowing the necessary additional time required [id number] Stone Ward MD [facility] [address] [place] [address] 08/24/2023 14:49:22 08/24/2023 17:09:07 Acquired dilation of bile duct 3909478377 138409 K83.8 see below Pancreatic duct disorder 293154520 K86.9 The patient has dilation of the common bile duct, intrahepat ic ducts, and pancreatic duct. Extending to the level of the ampulla without stones noted on MRCP. The patient does not have LFTs consistent with obstructio n, pancreatic enzymes were normal. The patient's had some abdominal pain that led to her ER visit, but this was more flank pain and has resolved. The patient notes that she has had some weight loss. with ductal dilation involving both the biliary tree, and the patient's pancreatic duct, direct visualizat ion via Endoscopic retrograde cholangiop ancreatogr aphy plus-minus EUS [id number] MD [facility] [address] [place] [address] 10/17/2023 08:54:47 10/17/2023 09:45:26 Adult health examination 923307555 Z00.00 Appropriat e age related, gender related, and health risk related parameters were addressed today recommenda tions were made for appropriat e wellness studies as indicated. Essential hypertension [id number] I10 Patient returns today for follow-up of a chronic diagnosis of hypertensi on. Current blood pressure measuremen t is found elevation in our readings. Were going to do 2 weeks of surveillan ce reassess the need for adjustment in medication . Going to go on increased lisinopril to 20 mg from 10 then have her back for a blood pressure recheck in 2 weeks Advance care planning 71 1144026 Z71.89 Issues relative to today's discussion and diagnosis were addressed. All questions were attempted to be addressed and reconciled . Any particular necessary informatio n was dispensed Standardiz ed adult depression screening tool completed [id number] 47810 Z13.31 Routine screening for depression is found to be negative. No interventi ons are required Lumbar spo ndylosis with myelopathy 15282026 M47.16 M48.07 she currently is involved in pain management in his anticipati ng the potential placement of a pain pump Osteoporosis 56341683 M8 1.0 This represents a chronic process that has been stable on medication s for extended period of time. Currently there appears to be no toxicity or side effect and good response to treatment. For these reasons we will continue medication s as ordered. Acquired d ilation of bile duct [id number] 145023 K83.8 this is in the current process of workup with Dr. Ward Pancreatic duct disorder 558797336 K86.9 this is in the current process of workup with Dr. Ward Generalize d osteoarthritis 027400922 M15.9 Patient is on chronic medication for osteoarthr itic disease. Overall level of function is good, and there was no evidence of side effect specifical ly gastric irritation . Ongoing treatment with appropriat e surveillan ce is appropriat e. [id number] Stone Ward MD [facility] [address] [place] [address],[address] [address] 12/04/2023 15:04:26 12/04/2023 15:53:02 Acquired dilation of bile duct 1289891797 167595 K83.8 No evidence of bile duct dilation by EUS, no further evaluation needed. 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 No further evaluation needed Gastric ulcer 558580793 K25.9 Gastric ulcers are likely nonsteroid al related, will check an H pylori stool antigen, but recommend the patient discontinu e diclofenac , because the patient has stopped her PPI because she thought it was hurting her stomach, will start the patient on rabeprazol e as an alternativ e agent until we confirm at follow-up that her ulcers have healed she needs an H pylori stool antigen [id number] MD [facility] [address] [place] [address] 01/18/2024 14:59:29 01/18/2024 15:49:36 Pain of right shoulder joint 3154926916 5497901 M25.511 radiograph ically she is got advanced degenerati ve disease and what is suggestive of a joint effusion in tears within the rotator cuff. I have no idea whether there is going to be any option for an interventi on but I am going to go on and order an MRI of the shoulder. Full thick ness rotator cuff tear 838117126 M75.121 past history of rotator cuff repair now with exacerbati on of pain and marked limited range of motion of the shoulder Lumbar spo ndylosis with myelopathy 25533282 M47.16 M48.07 she currently is involved in pain management in his anticipati ng the potential placement of a pain pump Essential hypertension 29401689 I10 Patient returns today for follow-up of a chronic diagnosis of hypertensi on. Current blood pressure measuremen t is found elevation in our readings. Were going to do 2 weeks of surveillan ce reassess the need for adjustment in medication . Going to go on increased lisinopril to 20 mg from 10 then have her back for a blood pressure recheck in 2 weeks Generalize d osteoarthritis 408418077 M15.9 Patient is on chronic medication for osteoarthr itic disease. Overall level of function is good, and there was no evidence of side effect specifical ly gastric irritation . Ongoing treatment with appropriat e surveillan ce is appropriat e. Standardiz ed adult depression screening tool completed [id number] 93450 Z13.31 Routine screening for depression is found to be negative. No interventi ons are required [id number] MD [facility] [address] [place] [address] 02/14/2024 08:35:23 02/14/2024 09:17:48 Osteoarthritis of joint of right shoulder region 2989680383 92195 M19.594 [id number] MD [facility] [address] [place] [address] 03/08/2024 09:28:26 03/08/2024 10:21:33 Pre-surgery evaluation 163412680 Z01.818 based on physical examinatio n historical data and objective studies obtained preoperati vely as well as physical exam today patient is cleared to proceed with surgery Full thick ness rotator cuff tear 806195351 M75.121 This appears to be in acute process for which surgical treatment has been prescribed . Appropriat e Education in regards to signs and symptoms of deteriorat ion were discussed with the patient. As well expectatio ns for progress in treatment and improvemen t were also discussed. Essential hypertension 47729626 I10 Patient returns today for follow-up of a chronic diagnosis of hypertensi on. Today's evaluation s suggest adequate control of disease process and no need for change in medication currently. systolic is mildly elevated but at her advanced age increasing medication s are only going to increase her stability issues and increase her fall risk. Generalize d osteoarthritis 852264629 M15.9 Patient is on chronic medication for osteoarthr itic disease. Overall level of function is good, and there was no evidence of side effect specifical ly gastric irritation . Ongoing treatment with appropriat e surveillan ce is appropriat e. [id number] [facility] [address] [place] [address] 04/01/2024 13:54:06 04/01/2024 15:08:23 History of reverse prosthetic total arthroplasty of right shoulder 0662286674 4511780 Z96.781 [id number] [facility] [address] [place] [address] 04/29/2024 13:46:42 04/29/2024 14:27:50 History of reverse prosthetic total arthroplasty of right shoulder 3943281261 9540430 Z96.632 [id number] MD [facility] [address] [place] [address] 04/29/2024 11:49:06 04/29/2024 12:35:25 Generalized osteoarthritis 856528396 M15.4 Patient is on chronic medication for osteoarthr itic disease. Overall level of function is good, and there was no evidence of side effect specifical ly gastric irritation . Ongoing treatment with appropriat e surveillan ce is appropriat e. Essential hypertension 54933855 I10 Patient returns today for follow-up of a chronic diagnosis of hypertensi on. Today's evaluation s suggest adequate control of disease process and no need for change in medication currently. systolic is mildly elevated but at her advanced age increasing medication s are only going to increase her stability issues and increase her fall risk. Lumbar spo ndylosis with myelopathy 20203788 M47.16 M48.07 she currently is involved in pain management in his anticipati ng the potential placement of a pain pump. I am going to go on and temporaril y supplement her with some hydrocodon e until she can have her interventi on completed Osteoporosis 75384083 M8 1.0 This represents a chronic process that has been stable on medication s for extended period of time. Currently there appears to be no toxicity or side effect and good response to treatment. For these reasons we will continue medication s as ordered. Gastric ulcer 709753870 K25.7 This represents a chronic process that has been stable on medication s for extended period of time. Currently there appears to be no toxicity or side effect and good response to treatment. For these reasons we will continue medication s as ordered. Standardiz ed adult depression screening tool completed [id number] 73857 Z13.31 Routine screening for depression is found to be negative. No interventi ons are required [id number] MD [facility] [address] [place] [address] 04/30/2024 10:12:25 05/01/2024 14:10:26 Essential hypertension 28811657 I10 Patient returns today for follow-up of a chronic diagnosis of hypertensi on. Today's evaluation s suggest adequate control of disease process and no need for change in medication currently. systolic is mildly elevated but at her advanced age increasing medication s are only going to increase her stability issues and increase her fall risk. Long-term current use of drug therapy 156057381 Z79.301 [id number] MD [facility] [address] [place] [address] 05/16/2024 14:21:18 05/16/2024 15:10:45 Diastolic dysfunction 7717070 I50.32 Issues relative to today's discussion and diagnosis were addressed. All questions were attempted to be addressed and reconciled . Any particular necessary informatio n was dispensed Lumbar spo ndylosis with myelopathy 27149038 M47.16 M48.07 she currently is involved in pain management in his anticipati ng the potential placement of a pain pump. I am going to go on and temporaril y supplement her with some hydrocodon e until she can have her interventi on completed Essential hypertension 49675030 I10 Patient returns today for follow-up of [...] today we will offset are systolic elevation. [id number] David duff MD [facility] [address] [place] [address] 05/22/2024 12:07:58 05/22/2024 12:34:20 Lumbar spondylosis with myelopathy 12411036 M47.16 M48.07 she currently is involved in pain management in his anticipati ng the potential placement of a pain pump. I am going to go on and temporaril y supplement her with some hydrocodon e until she can have her interventi on completed Diastolic dysfunction 35 09632 I50.32 Issues relative to today's discussion and diagnosis were addressed. All questions were attempted to be addressed and reconciled . Any particular necessary informatio n was dispensed Full thick ness rotator cuff tear 983152010 M75.121 Roxy is currently involved in physical therapy in his responding well Standardiz ed adult depression screening tool completed [id number] 89530 Z13.31 Routine screening for depression is found to be negative. No interventi ons are required Edema of l eft lower limb 035478536 R60.0 Issues relative to today's discussion and [...] her best answer for the lower extremity [id number] [facility] [address] [place], [place] [address] 06/10/2024 13:08:40 06/10/2024 13:51:23 History of reverse prosthetic total arthroplasty of right shoulder 1396737071 0477937 Z96.114 [id number] SAY ESTEVES DO [facility] [place] [phone] 06/05/2024 09:35:17 06/05/2024 11:18:42 History of reverse prosthetic total arthroplasty of right shoulder 7604374879 4864835 Z96.249 [id number] David duff MD [facility] [address] [place] [address] 06/14/2024 09:28:45 06/14/2024 12:02:17 Lumbar spondylosis with myelopathy 48916077 M47.16 M48.07 she currently is involved in pain management in his anticipati ng the potential placement of a pain pump. I am going to go on and temporaril y supplement her with some hydrocodon e until she can have her interventi on completed Standardiz ed adult depression screening tool completed [id number] 76589 Z13.31 Routine screening for depression is found to be negative. No interventi ons are required Edema of l eft lower limb 697046677 R60.0 Issues relative to today's discussion and [...] her best answer for the lower extremity [id number] MD [facility] [address] [place] [address] 07/02/2024 13:55:16 07/02/2024 14:29:34 Pain of knee region 9821220249 M25.562 Prepatella r bursitis of left knee 3519341944 97121 M70.42 [id number] [facility] [address] [place] [address] 07/22/2024 14:07:32 07/22/2024 14:43:39 History of reverse prosthetic total arthroplasty of right shoulder 7369341789 5439341 Z96.611 Prepatella r bursitis of left knee 4721920840 51376 M70.42 Health Concerns Section Related Observation LastModified by Organization Detai ls LastModified Time None Recorded Concern Status LastModified by Organization Details LastModified Time None Recorded Advance Directives Directive N: Payers Insurance Date Sequence Insurance Name Policy Number Policy Rico Covered Member ID Rico Member ID Guarantor Name 07/25/2024 2 [employer] (MEDICARE SUPPLEMENT) PLAN F Brandee Dupree [id number] Brandee Dupree 07/19/2024 1 [place] Brandee uDpree [id number] Brandee Dupree Notes Date Note Type Note Provider Name and Address Organization Details Recorded Time 06/05/2024 text/html 1.13.25 RIGHT REVERSE TOTAL SHOULDER REPLACEMENT USING A BIOMET IMPLANT WITH SIZE 36 MM +0 IN THE B POSITION GLENOSPHERE MINI BASE PLATE 35 MM CENTRAL SCREWS +0 NEUTRAL STEM WITH A SIZE 9 MINI STEM WITH BICEPS TENODESIS She presents today for bruised area to the right shoulder. She has no injury to report. She states that sometimes she runs into the door while going to the bathroom at night. She denies pain. There is a lump where the discoloration is. CHE3 SAY LINN, [address] [facility],[address], [place], [address], [facility] & [place] 06/05/2024 12:29:28 06/10/2024 text/html This is a 78 y/o female here today for follow up right shoulder. Patient saw Dr. Esteves last week because PT downstairs wanted patient evaluated for area on shoulder with discoloration. RIGHT REVERSE TOTAL SHOULDER REPLACEMENT USING A BIOMET IMPLANT WITH SIZE 36 MM +0 IN THE B POSITION GLENOSPHERE MINI BASE PLATE 35 MM CENTRAL SCREWS +0 NEUTRAL STEM WITH A SIZE 9 MINI STEM WITH BICEPS TENODESIS; DOS 1.13.25. Patient states she is improving since last week. Patient states she still has tenderness about shoulder. Was able to do physical therapy session after apt last week. E1AP GEORGES RED NP [address] [place] [address],[address], [place], [address], [facility] & [place] 06/10/2024 14:47:54 06/14/2024 text/html Today is follow- up for bilateral lower extremity fluid retention she is doing much better after Lasix. It is of note that she is getting steroid injections in the lumbar spine that is seems to have some degree of David MD Titi [address] [place] [address] Drive,[address], [place], [address], [facility] [place] 06/14/2024 10:26:23 07/02/2024 text/html This 78 year old female patient presents in the office today follow up of LEFT knee open area. 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 She reports it was healing well but became inflamed, red, and sore to touch so she went to [facility] on 06.26.24 and was started on Clindamycin that she continues at this time. We are getting x-rays in the office today; 07.02.24. She reports it has improved greatly. CHE4 Brian Patterson MD [address], [place], [address], [facility] & [place] 07/03/2024 09:23:35 07/22/2024 text/html Pt is here for f /u of her rt reverse from Mar 2024. She reports the shoulder is a little sore from mowing her grass. Her left knee pes bursitis is better. She is no-longer on ABX. Doing well-E1SF GEORGES RED, PLUSH FINISHER [address] [facility],[address], [place], [address], [facility] 07/22/2024 14:45:34 OBGyn Episode No OBEpisode recorded.
[2024-08-12 11:06] VITALS: BP 137/76; PULSE 70; RESP 14; O2SAT 99; BMI 18.8
--- NOTE | 2024-08-12 13:22 | EXP.PAIN.SOA ---
[facility] Disclaimer: The information contained in this section may have been updated after the patient was seen, as this information can be updated by other users. Medical History No significant past medical history Family History Other Family history of myocardial infarction Heart disease Pacemaker Social History Smoking Status: Never smoker alcohol intake: never current occupational status: other Travel in the last 8 weeks?: None number of children: 1 Have you lived/traveled outside US in past 30 days?: No Contact w/someone who lives/traveled outside US past 30 days?: No Exposure to someone with infectious disease in past 14 days?: No Do you have a fever (greater than 100.4 F or 38 C)?: No Have you tested positive for COVID-19?: No Exposed to someone with COVID-19 in past 14 days?: No Do you have a sore throat?: No Do you have a cough?: No Do you have any weakness?: No Do you have any diarrhea?: No Are you experiencing any unusual bleeding?: No Do you have any muscle aches/pain?: No Do you have any abdominal pain?: No Are you experiencing loss of taste or smell?: No PM Subjective & Objective Subjective Subjective:: Patient is a pleasant 78-year-old female who presents today for follow-up of her psychological evaluation and bilateral SI injections on 07/31/2024. Today she rates her pain an 8 out of 10 and states that is more related to her hips. Patient does state that she had at least 90% improvement following these injections however felt like it was very short-lived and is already back towards her baseline. Patient denies any new falls or injuries. Patient does continue to have a lot of hip, groin pain and upper thigh pain. Patient does state today that she would like to proceed forward with the spinal cord stimulator trial. Patient does also make mention today that it is if we are able to refill her previous pain medication she would very much appreciate it however does acknowledge that if she needs to contact her other doctor she can do that as well. Patient is prescribed compounded cream from our office. Her Sameer has been reviewed and is appropriate. Review of Systems: General: No recent weight changes, no fever, no sleep disturbances Respiratory: No cough, no shortness of air, no recurring pulmonary infections Cardiovascular/peripheral vascular: No chest pain, no palpitations, no edema, no shortness of breath Gastrointestinal: No new onset incontinence, normal bowel movements reported Genitourinary: No new onset incontinence Musculoskeletal: Low back pain, hip pain, groin pain, upper thigh pain Psychiatric: [Normal mood/affect] Neurological: [Denies weakness in extremities], [denies balance issues] Pain at rest (0-10 scale): 8 Objective Objective:: Review of Systems: General: No recent weight changes, no fever, no sleep disturbances Respiratory: No cough, no shortness of air, no recurring pulmonary infections Cardiovascular/peripheral vascular: No chest pain, no palpitations, no edema, no shortness of breath Gastrointestinal: No new onset incontinence, normal bowel movements reported Genitourinary: No new onset incontinence Musculoskeletal: Lumbar Psychiatric: [Normal mood/affect] Neurological: [Denies weakness in extremities], [denies balance issues] Has patient had previous pain injection?: Yes Percent improvement in pain since last injection: 90% Conservative treatment options previously tried: Home exercise plan Length of treatment: Longer than 12 weeks Meds Home Medications and Allergies Home Medications ?Medication ?Instructions ?Recorded ?Confirmed ?Type alendronate 70 mg tablet 70 mg PO WEEKLY 04/25/23 08/12/24 History gabapentin 300 mg capsule 300 mg PO TID 04/25/23 08/12/24 History lisinopril 20 mg tablet 20 mg PO DAILY 04/25/23 08/12/24 History diclofenac sodium 50 mg 50 mg PO DAILY 06/12/23 08/12/24 History tablet,delayed release diclofenac sodium 3 % topical gel 1 applic topical BID #100 grams 01/01/24 08/12/24 Rx New Prescriptions to Start Prescriptions: Allergies Allergy/AdvReac Type Severity Reaction Status Date / Time sulfamethoxazole (From AdvReac Unknown Verified 07/04/24 11:22 Bactrim) allergy reaction trimethoprim (From Bactrim) AdvReac Unknown Verified 07/04/24 11:22 allergy reaction Assessment and Plan *Assessment and plan (1) Degenerative disc disease, lumbar: Status: Acute Category: Medical Code(s): M51.369 - Other intervertebral disc degeneration, lumbar region without mention of lumbar back pain or lower extremity pain (2) Bilateral hip pain: Status: Acute Category: Medical Code(s): M25.551 - Pain in right hip; M25.552 - Pain in left hip Plan I did review over with the patient regarding her psychological evaluation and she was deemed an appropriate candidate for the spinal cord stimulator. We did review risk and benefits and she would like to proceed forward with this option. Patient has had chronic pain throughout her low back that does radiate down into her lower extremities with limited range of motion. Patient has tried and failed conservative therapy including oral medication, heat and ice, topicals, physical therapy and continued at home stretching exercise for longer than 12 weeks that was physician guided. We will submit to insurance for the spinal cord stimulator trial under fluoroscopy. Patient has also not had updated imaging since 2022. We will plan to proceed forward with MRI of her lumbar spine without contrast. Patient will be tentatively sent to neurosurgery as well for possible surgical evaluation. Patient has been instructed to contact the clinic with any concerns before the next appointment. Dr. Peacock has reviewed this note and agrees with this plan of care. This note was dictated using voice recognition software and make contain errors or omissions. All injections are used with Lidocaine, Bupivacaine and dexamethasone. Occasionally urine drug screen is needed to verify patient's compliance with our office pain contract. This is ordered based off specific treatments related to chronic pain with the potential to abuse certain medications.
== END 2024-08-12 23:59 | disposition home or self-care (01) ==
LOC: SC.PAIN 10:49
PROVIDERS: PCP Internal Medicine; Visit Provider Nurse Practitioner Family
DX: M51.360 Other intervertebral disc degeneration, lumbar region with discogenic back pain only (principal); M25.551 Pain in right hip; M25.552 Pain in left hip
CPT/HCPCS: 99212; G0463

== ENCOUNTER 2024-08-26 15:59 | Outpatient (CLI) | payer MEDICARE, SELFPAY ==
--- NOTE | 2024-08-26 16:03 | MR_ITS ---
PROCEDURE INFORMATION: Exam: MR Lumbar Spine Without Contrast Exam date and time: 08/26/2024 4:07 PM Age: 78 years old Clinical indication: Low back pain; Additional info: Lbp, chronic TECHNIQUE: Imaging protocol: Magnetic resonance imaging of the lumbar spine without contrast. COMPARISON: No relevant prior studies available. FINDINGS: Bones/joints: The lumbar vertebral bodies are normal in height. Moderate levoscoliosis of the lumbar spine, with a measured Ludwig angle of 38 degrees. Grade 1/2 anterolisthesis of L3 on L4 and L4 on L5. Left lateral subluxation is identified of L3 on L4 and L4 on L5. Spinal cord: The distal end of the conus medullaris ends at L1-L2, normal in position. Multilevel findings: Degenerative changes are noted diffusely within the lumbar and visualized lower thoracic spine, with a decrease in the T2 signal intensity of the discs, as well as disc bulge/osteophyte complexes. T11-T12: At T11-12, disc bulging is visualized, without significant spinal canal stenosis. Evaluation of the neural foramina is suboptimal. T12-L1: At T12-L1, there is a broad-based disc bulge, without significant spinal canal stenosis. Moderate right and moderate to severe left neural foraminal narrowing visualized. L1-L2: Bilateral facet arthropathy with hypertrophy of the ligamentum flavum. There is heterogeneous signal intensity irregularity of the right ligamentum flavum. A broad-based disc bulge is visualized, without significant spinal canal stenosis. There is narrowing of the right lateral recess. Moderate right and [id number]-sh-[id number] left neural foraminal narrowing visualized. L2-L3: Bilateral facet arthropathy with hypertrophy of the ligamentum flavum. A broad-based disc bulge is visualized, with minimal narrowing of the thecal sac. Moderate right and neural foraminal narrowing is identified. There is no significant narrowing of the left neural foramen. L3-L4: Bilateral facet arthropathy with hypertrophy of the ligamentum flavum. There is a broad-based disc bulge with herniation causing severe narrowing of the thecal sac. The AP dimension of thecal sac measures 0.6 cm. There is narrowing of both lateral recesses, right side greater than left. No significant narrowing of the left neural foramen. Severe right neural foraminal narrowing is identified, with compression of the exiting right L3 nerve root. L4-L5: There is a broad-based disc bulge with right paracentral disc herniation/extrusion extending along the dorsal aspect of the L4 vertebral body. Severe narrowing of the thecal sac is identified with narrowing of both lateral recesses. The AP dimension of thecal sac measures 0.6 cm. Severe right and moderate to severe left neural foraminal narrowing identified. There is compression of the exiting right L4 nerve root with encroachment on the exiting left L4 nerve root. L5-S1: Posterior disc bulge/protrusion visualized causing moderate narrowing of the thecal sac. This level is out of the field of view of axial images, limiting the evaluation. A vacuum disc phenomena is seen. A decrease in disc height is seen posteriorly. Mild edema is noted within the bone marrow adjacent to the endplates, which is likely degenerative. Mild right and severe left neural foraminal narrowing identified, with encroachment on the exiting left L5 nerve root. Soft tissues: No significant paraspinal swelling. Gallbladder and biliary ducts: Biliary dilatation is visualized. The common bile duct is identified measuring 1.1 cm in diameter. Kidneys and ureters: T2 hyperintense bilateral renal parapelvic cysts are visualized. Hydronephrosis on the left side cannot be excluded. IMPRESSION: 1. Degenerative changes are noted diffusely within the lumbar and visualized lower thoracic spine, as described above. 2. Severe narrowing of the thecal sac at L3-L4 and L4-L5, with disc herniations. Posterior disc bulge/protrusion visualized at L5-S1 causing moderate narrowing of the thecal sac. Minimal narrowing of the thecal sac at L2-L3. 3. Neural foraminal narrowing from T12-L1 through L5-S1. There is compression of the exiting right L3 and right L4 nerve roots. 4. Grade 1/2 anterolisthesis of L3 on L4 and L4 on L5. Left lateral subluxation is identified of L3 on L4 and L4 on L5. 5. Moderate levoscoliosis of the lumbar spine, with a measured Ludwig angle of 38 degrees. 6. Biliary dilatation is visualized. Correlation with serum bilirubin and possible MRCP are recommended. 7. Bilateral renal parapelvic cysts are visualized. Hydronephrosis on the left side cannot be excluded. A follow-up CT urogram with/without contrast is recommended, as clinically indicated.
--- OUTSIDE RECORDS SUMMARY | 2024-08-26 16:03 | XMS_ITS | Data Portability ---
Author Organization [place] - [facility] Address [address] [place] [address] Care Team Providers Care Truck Hop Name Role Phone DAVID MOROCHO Primary Care [...] recorded. Imaging XR, shoulder 2024 025 [email or web address] [facility], [address] [place] [address] [place], [address], 07/22/2024 14:35:10 XR, knee 2024 025 [email or web address] [facility], [address] [place] [address] [place], [address], 07/03/2024 09:09:40 XR, shoulder 2024 025 [email or web address] [facility], [address] [place] [address] [place], [address], 06/05/2024 13:04:58 Medication Orders None recorded. Patient TargetsNo targets recorded. Patient InstructionsNo instructions recorded. Reason for Referral None Reported. Results Created Date Observation Date Name Description Value Unit Range Abnormal Flag Note LastModifiedBy Organization Detail LastModifiedTime 06/06/19 25 XR, shoul tabitha No observ ation record ed. ALEJANDRA [address] [place], [address], 06/05/2024 10:34:05 07/03/19 25 XR, knee No observ ation record ed. ALEJANDRA [address] [place], [address], 07/02/2024 14:09:42 07/23/19 25 XR, shoul tabitha No observ ation record ed. ALEJANDRA Mv [address] [place], [address], 07/22/2024 14:30:28 Result Notes None recorded. Problems Name Problem SNOMED Code Status Onset Date Resolution Date Notes Provider Name and Address Organization Details Recorded Time Full thickness rotator cuff tear 215984391 Active [address], MD [address] [place] [address], [address], [facility] & [place] 4 15:38:49 Standardize d adult depression screening tool completed 7122449145644 07 Active [address], MD [address] [place] [address], [address], [facility] & [place] 5 12:58:37 Diastolic dysfunction 1548598 Active [address], MD [address] [place] [address], [address], [facility] & [place] 5 15:16:24 Edema of left lower limb 873579424 Active [address], MD [address] [place] [address],[address], [place], [address], [place] - [facility] [place] & [place] 5 12:37:46 Dizziness 790900619 Active 2021 jillian anali null, [place] [facility] [place] & [place] 3 11:06:01 Essential hypertensio n 15755968 Active 2022 jillian anali null[place] [facility] [place] & [place] 3 11:06:10 Osteoarthri tis of right knee joint 9275795860728 00 Active 2022 jillian anali null[place] [facility] [place] & [place] 3 11:11:35 Sciatica 94441680 Active 2022 jillian anali null[place] [facility] [place] & [place] 3 11:11:48 Postmenopau [place] 97391854 Active 2022 jillian anali null[place] [facility] [place] & [place] 3 11:11:59 Osteoporosi s 86141273 Active 2022 jillian anali null[place] [facility] [place] & [place] 3 11:12:12 Generalized osteoarthri tis 022329192 Active [address], MD [address] [place] [address],[address], [place], [address], [place] [facility] [place] & [place] 3 12:25:30 Lumbar spondylosis with myelopathy 39852052 Active [address], MD [address] [place] [address],[address], [place], [address], [place] [facility] & [place] 4 09:49:34 Acquired dilation of bile duct 1895387094624 108 Active 2023 Stone Ward MD [address] [place] [address],[address], [place], [address], [place] - [facility] & [place] 4 17:11:00 Pancreatic duct disorder 952463808 Active 2023 Stone Ward MD [address] [place] [address],[facility] [address], [place], [address], [facility] T[facility]I [facility] & [place] 4 17:12:24 Gastric ulcer 508321649 Active 2023 Stone Ward MD [address] [place] [address],[address], [place], [address], [place] [facility] & [place] 4 15:46:00 Problem Notes None recorded. Procedures Surgical History Date Name Laterality Status Provider Name and Address Organization Details Recorded Time fixation of hip completed jillian anali [place] [facility] & [place] 11/16/2021 15:11:04 procedure on knee completed jillian anali [place] [employer] & [place] 11/16/2021 15:11:27 complete repair of rotator cuff [facility] [place] 01/10/2023 09:57:48 complete repair of rotator cuff completed [email or web address] [facility] & [place] 01/10/2023 09:57:51 Imaging Results None recorded. Procedure [...] Last Updated DateTime 170.18 cm 19.8 kg/m2 73035.7 4 g 97.6 [degF] 94 % 94 % 60 /min 18 /min 154 mm[Hg] 80 mm[Hg] Eduarda River [place] - [facility] [facility] & [place] 09:37:46 Date Recorded Body height Provider Name an d Address Organization Details Last Updated DateTime 07/22/2024 170.[address] [facility] & [place] 07/22/2024 14:19:34 Social History Question Answer Notes LastModified by Organizat ion Details LastModified Time Tobacco Smoking Status Never Smoker jillian briones calista, [facility] & [place] 04/06/2022 11:12:39 Do You Have An Advance Directive? No [email or web address] Information not available 10/10/2022 Are You Blind Or Do You Have Difficulty Seeing? No [email or web address] Information not available 10/10/2022 Is Blood Transfusion [...] Would You Say Your Health Is Good [email or web address] Information not available 10/10/2022 How Would You Describe The Condition Of Your Mouth And Teeth including False Teeth Or Dentures? Very Good [email or web address] Information not available 10/10/2022 In The Past 7 Days, How Many Servings Of Fruits And Vegetables Did You Typically Eat Each Day? (1 Serving = 1 Cup Of Fresh Vegetables, 1 2 Cup Of Cooked Vegetables, Or 1 Medium Piece Of Fruit. 1 Cup = Size Of A Baseball.) 5-6 Servings Per Day [email or web address] Information not available 10/10/2022 In The Past 7 Days, How Many Servings Of High Fiber Or Whole Grain Foods Did You Typically Eat Each Day? (1 Serving = 1 Slice Of 100% Whole Wheat Bread, 1 Cup Of Whole-grain Or High-fiber Yeusp-fo-tbd Cereal, 1 2 Cup Of Cooked Cereal Such As Oatmeal, Or 1 2 Cup Of Cooked Brown Rice Or Whole Wheat Pasta.) 3-4 Servings Per Day [email or web address] Information not available 10/10/2022 In The Past 7 Days, How Many Servings Of Fried Or High-fat Foods Did You Typically Eat Each Day? (Examples Include Fried Chicken, Fried Fish, [place], Iranian [place], Potato Chips, [place] Chips, Doughnuts, Creamy Salad Dressings, And Foods Made With Whole Milk, Cream, Cheese, Or Mayonnaise.) 1-2 Servings Per Day [email or web address] Information not available 10/10/2022 In The Past 7 Days, How Many Sugar-sweetened (not Diet) Beverages Did You Typically Consume Each Day 3-4 Drinks Per Day [email or web address] Information not available 10/10/2022 Each Night, How Many Hours Of Sleep Do You Usually Get? 5-6 Hours [email or web address] Information not available 10/10/2022 Do You Snore Or Has Anyone Told You That You Snore? Yes [email or web address] Information not available 10/10/2022 In The Past 7 Days, How Often Have You Home Sleepy During The Daytime? Sometimes [email or web address] Information not available 10/10/2022 Do You Have Chronic Pain? Yes [email or web address] Information not available 10/10/2022 In The Past 7 Days, How Would You Rate Your Pain? Severe Pain(7-9) [email or web address] Information not available 10/10/2022 Are You In A Pain Management Program? No [email or web address] Information not available 10/10/2022 Do You Take Opioids For Your Pain? No [email or web address] Information not available 10/10/2022 How Often Is Stress A Problem For You In Handling Such Things As: Your Health, Your Finances, Your Family And Social Relationships, Your Work? Sometimes [email or web address] Information not available 10/10/2022 How Often Do You Get The Social And Emotional Support You Need: Always [email or web address] Information no t available 10/10/2022 In The Past 7 Days, Did You Need Help From Others To Take Care Of Things Such As Laundry And Housekeep- Ing, Banking, Shopping, Using The Telephone, Food Preparation, Transportation, Or Taking Your Own Medications? No [email or web address] Information not available 10/10/2022 Do You Live Alone? No [email or web address] Information not available 10/10/2022 Does Your Home Have Any Fall Risks (un-level Floors, Unfastened Rugs, Poor Lighting, Etc)? No Information not available 10/10/2022 What Was The Date Of Your Most Recent Tobacco Screening? 05/22/2024 [email or web address] Information not available 05/22/2024 How Many Children [...] Are You Passively Exposed To Smoke? No Information no t available 10/10/2022 What Types [...] use any illicit or recreational drugs? No Information not available 04/06/2022 Do you or have you ever used any other forms of tobacco or nicotine? No [email or web address] Information not available 01/24/2023 What is your level of alcohol consumption? None [email or web address] Information not available 04/06/2022 Are you currently [...] 01/24/2023 What is your exercise level? Moderate [email or web address] Information not available 10/10/2022 Mental Status Question Answer Note LastModified by Organizat ion Details LastModified Time Do you feel stressed (tense, restless, nervous, or anxious, or unable to sleep at night)? [id number] [email or web address] Information not available 10/10/2022 Do you have difficulty concentrating, remembering or making decisions? No [email or web address] Information no t available 01/24/2023 Family History Relationship Description Onset Age of this Age Resolved Age Notes LastModified by Organization Details LastModified Time Father Essential hypertension [email or web address] Not available 15:10:19 Mother Essential hypertension [email or web address] Not available 15:10:19 Medical History Condition Response [...] completed Eduarda Per[place] null, [place] [facility] [facility] & [place] 01/10/2023 11:26:48 COVID-19, mRNA, LNP-S, PF, 100 mcg/0.5mL dose or 50 mcg/0.25mL dose 1 completed Eduarda Perico null, [place] - [facility] [facility] & [place] 08/17/2022 13:25:10 Influenza, high-dose, trivalent, PF 0 completed Eduarda Per[place] null[place] [facility] & [place] 08/17/2022 13:25:10 Influenza, split virus, trivalent, preservative 8 completed Eduarda Per[place] null[place] [facility] & [place] 08/17/2022 13:25:10 Td (adult), 2 Lf tetanus toxoid, preservative free, adsorbed 7 completed Eduarda Perico null, [place] - [facility] & [place] 08/17/2022 13:25:10 Influenza, split virus, quadrivalent, PF 9 completed Eduarda Perico null[place] [facility] [facility] & [place] 08/17/2022 13:25:10 COVID-19, mRNA, LNP-S, PF, 100 mcg/0.5mL dose or 50 mcg/0.25mL dose 1 completed Not Available [facility] 04/10/2023 09:05:03 COVID-19, mRNA, LNP-S, PF, 100 mcg/0.5mL dose or 50 mcg/0.25mL dose 1 completed Eduarda Preico null, [place] [facility] [place] & [place] 08/17/2022 13:25:10 COVID-19, mRNA, LNP-S, PF, 100 mcg/0.5mL dose or 50 mcg/0.25mL dose 1 completed Eduarda Perico null, [place] [facility] [place] & [place] 08/17/2022 13:25:10 Past Encounters Encounter ID Performer Location Encounter Start Date Encounter Closed Date Diagnosis/Indication Diagnosis SNOMED-CT Code Diagnosis ICD10 Code Diagnosis Note [id number] MD [facility] [address] [place] [address] 11/16/2021 13:56:24 11/16/2021 18:20:56 Essential hypertension 43164273 I10 Patient returns today for follow-up of [...] 2 weeks Benign par oxysmal positional vertigo 718745539 H81.13 This appears to be in acute [...] symptoms that would require urgent re-evaluat ion. [id number] MD [facility] [address] [place] [address] 04/11/2022 10:23:58 04/11/2022 11:43:24 Depression screening 151272018 Z13.31 Appropriat e age related, gender related, and health risk related parameters were addressed today recommenda tions were made for appropriat e wellness studies as indicated. Essential hypertension 39137509 I10 Patient returns today for follow-up of [...] recheck in 2 weeks Postmenopausal state 764 54327 Z78.0 This represents a chronic process that has been stable on medication s for extended period of time. Currently there appears to be no toxicity or side effect and good response to treatment. For these reasons we will continue medication s as ordered. Osteoporosis 24330447 M8 1.0 This represents a chronic process that has been stable on medication s for extended period of time. Currently there appears to be no toxicity or side effect and good response to treatment. For these reasons we will continue medication s as ordered. Generalize d osteoarthritis 918956764 M15.9 Patient is on chronic medication for osteoarthr itic disease. Overall level of function is good, and there was no evidence of side effect specifical ly gastric irritation . Ongoing treatment with appropriat e surveillan ce is appropriat e. [id number] MD [facility] [address] [place] [address] 08/24/2022 14:18:33 08/24/2022 15:00:46 Right side sciatica 9560063373 88277 M54.31 This appears to be in acute [...] would require urgent re-evaluat ion. Acquired scoliosis 23941 6001 M41.9 this was a radiograph ic finding when they did her back x-ray. Overall she clinically had no symptoms prior I gave her appropriat e Education [id number] MD [facility] [address] [place] [address] 10/10/2022 08:41:37 10/10/2022 09:49:36 Adult health examination 104186576 Z00.01 Appropriat e age related, gender related, and health risk related parameters were addressed today recommenda tions were made for appropriat e wellness studies as indicated. Advance care planning 71 2182922 Z71.89 Issues relative to today's discussion and diagnosis were addressed. All questions were attempted to be addressed and reconciled . Any particular necessary informatio n was dispensed Standardiz ed adult depression screening tool completed 7159501191 24107 Z13.89 Appropriat e age related, gender related, and health risk related parameters were addressed today recommenda tions were made for appropriat e wellness studies as indicated. Essential hypertension 73107759 I10 Patient returns today for follow-up of [...] recheck in 2 weeks Generalize d osteoarthritis 743643187 M15.9 Patient is on chronic medication for osteoarthr itic disease. Overall level of function is good, and there was no evidence of side effect specifical ly gastric irritation . Ongoing treatment with appropriat e surveillan ce is appropriat e. Osteoporosis 25358873 M8 1.0 This represents a chronic process that has been stable on medication s for extended period of time. Currently there appears to be no toxicity or side effect and good response to treatment. For these reasons we will continue medication s as ordered. Lumbar spo ndylosis with myelopathy 98161676 M47.16 recent radiograph ic workup shows her [...] is definitely in agreement Long-term drug therapy 841244885 Z79.899 Surveillan ce laboratory studies have been ordered to assess for the target of treatment as well as any potential end-organ toxicity. [id number] MD [facility] [address] [place] [address] 10/06/2022 15:26:14 10/06/2022 16:08:20 Lumbar spondylosis with myelopathy 57813259 M47.16 Jose returns with significan t pain [...] her stomach does not tolerate nonsteroid als [id number] David duff MD [facility] [address] [place] [address] 10/28/2022 09:11:21 10/28/2022 10:40:43 Lumbar spondylosis with myelopathy 48756829 M47.16 Patient has scheduled upcoming appointmen t with spinal surgeon. Cellulitis of leg, excluding foot 427659066 L03.119 As stated above, patient presents today [...] , just in case this does reappear. [id number] MD [facility] [address] [place] [address] 01/10/2023 09:29:53 01/10/2023 11:26:35 Administration of influenza vaccine 40571849 Z23 Essential hypertension 04726416 I10 Patient returns today for follow-up of [...] recheck in 2 weeks Generalize d osteoarthritis 470568653 M15.9 Patient is on chronic medication for osteoarthr itic disease. Overall level of function is good, and there was no evidence of side effect specifical ly gastric irritation . Ongoing treatment with appropriat e surveillan ce is appropriat e. Osteoporosis 98670782 M8 1.0 This represents a chronic process that has been stable on medication s for extended period of time. Currently there appears to be no toxicity or side effect and good response to treatment. For these reasons we will continue medication s as ordered. Postmenopausal state 764 52465 Z78.0 This represents a chronic process that has been stable on medication s for extended period of time. Currently there appears to be no toxicity or side effect and good response to treatment. For these reasons we will continue medication s as ordered. Lumbar spo ndylosis with myelopathy 84071523 M47.16 M48.07 We currently are awaiting neurosurgi deisy referral for evaluation . I am going to go on and use tramadol as a temporary pain control measure Standardiz ed adult depression screening tool completed 4244772864 50556 Z13.89 Appropriat e age related, gender related, and health risk related parameters were addressed today recommenda tions were made for appropriat e wellness studies as indicated. [id number] MD [facility] [address] [place] [address] 01/24/2023 13:32:40 01/24/2023 14:25:44 Osteoarthritis of joint of right shoulder region 7961823274 48364 M19.011 Pain of ri ght hip joint 3193146010 37096 M25.551 [id number] MD [facility] [address] [place] [address] 03/07/2023 09:33:37 03/07/2023 10:05:06 Osteoarthritis of right hip joint 5000222303 73990 M16.11 Numbness a nd tingling sensation of skin 8587213741 02 R20.2 [id number] MD [facility] [address] [place] [address] 04/10/2023 09:00:46 04/10/2023 09:50:11 Essential hypertension 28254288 I10 Patient returns today for follow-up of [...] recheck in 2 weeks Long-term drug therapy 736311119 Z79.899 Surveillan ce laboratory studies have been ordered to assess for the target of treatment as well as any potential end-organ toxicity. Generalize d osteoarthritis 702143029 M15.9 Patient is on chronic medication for osteoarthr itic disease. Overall level of function is good, and there was no evidence of side effect specifical ly gastric irritation . Ongoing treatment with appropriat e surveillan ce is appropriat e. Lumbar spo ndylosis with myelopathy 65812227 M47.16 M48.07 she currently is involved in pain management in his anticipati ng the potential placement of a pain pump Osteoporosis 85615242 M8 1.0 This represents a chronic process that has been stable on medication s for extended period of time. Currently there appears to be no toxicity or side effect and good response to treatment. For these reasons we will continue medication s as ordered. Chronic lo ng term disease management required: complex needs 933343029 Z76.89 Today's visit is part of long-term chronic disease management as well as chronic wellness management . Ongoing efforts to consolidat e and optimize care is the goal at each visit. Today's visit includes the management of surveillan ce laboratory studies, discussion of their values if necessary, in addition to the interactio n of multiple comorbidit ies, allowing the necessary additional time required [id number] Stone Ward MD [facility] erology [address] [place] [address] 08/24/2023 14:49:22 08/24/2023 17:09:07 Acquired dilation of bile duct 8972494946 145649 K83.8 see below Pancreatic duct disorder 465727375 K86.9 The patient has dilation of the [...] Endoscopic retrograde cholangiop ancreatogr aphy plus-minus EUS [id number] MD [facility] [address] [place] [address] 10/17/2023 08:54:47 10/17/2023 09:45:26 Adult health examination 282599708 Z00.00 Appropriat e age related, gender related, and health risk related parameters were addressed today recommenda tions were made for appropriat e wellness studies as indicated. Essential hypertension 57605620 I10 Patient returns today for follow-up of [...] in 2 weeks Advance care planning 71 4132603 Z71.89 Issues relative to today's discussion and diagnosis were addressed. All questions were attempted to be addressed and reconciled . Any particular necessary informatio n was dispensed Standardiz ed adult depression screening tool completed [id number] 36061 Z13.31 Routine screening for depression is found to be negative. No interventi ons are required Lumbar spo ndylosis with myelopathy 72592265 M47.16 M48.07 she currently is involved in pain management in his anticipati ng the potential placement of a pain pump Osteoporosis 55950167 M8 1.0 This represents a chronic process that has been stable on medication s for extended period of time. Currently there appears to be no toxicity or side effect and good response to treatment. For these reasons we will continue medication s as ordered. Acquired d ilation of bile duct 3641869569 685209 K83.8 this is in the current process of workup with Dr. Ward Pancreatic duct disorder 249500791 K86.9 this is in the current process of workup with Dr. Ward Generalize d osteoarthritis 680949341 M15.9 Patient is on chronic medication for osteoarthr itic disease. Overall level of function is good, and there was no evidence of side effect specifical ly gastric irritation . Ongoing treatment with appropriat e surveillan ce is appropriat e. [id number] Stone Ward MD [facility] [address] [place] [address] 12/04/2023 15:04:26 12/04/2023 15:53:02 Acquired dilation of bile duct 1625611102 007072 K83.8 No evidence of bile duct dilation by EUS, no further evaluation needed. Pancreatic duct disorder 678425254 K86.9 no worrisome features noted on recent EUS, mild ductal dilation without stones obstructio n ductal wall thickening or parenchyma l abnormalit ies. No further evaluation needed Gastric ulcer 018975865 K25.9 Gastric ulcers are likely nonsteroid al [...] she needs an H pylori stool antigen [id number] MD [facility] [address] [place] [address] 01/18/2024 14:59:29 01/18/2024 15:49:36 Pain of right shoulder joint 3465806417 6838133 M25.511 radiograph ically she is got advanced degenerati ve disease and what is suggestive of a joint effusion in tears within the rotator cuff. I have no idea whether there is going to be any option for an interventi on but I am going to go on and order an MRI of the shoulder. Full thick ness rotator cuff tear 120280450 M75.121 past history of rotator cuff repair now with exacerbati on of pain and marked limited range of motion of the shoulder Lumbar spo ndylosis with myelopathy 14693764 M47.16 M48.07 she currently is involved in pain management in his anticipati ng the potential placement of a pain pump Essential hypertension 44216980 I10 Patient returns today for follow-up of [...] recheck in 2 weeks Generalize d osteoarthritis 434428878 M15.9 Patient is on chronic medication for osteoarthr itic disease. Overall level of function is good, and there was no evidence of side effect specifical ly gastric irritation . Ongoing treatment with appropriat e surveillan ce is appropriat e. Standardiz ed adult depression screening tool completed 8606212368 85657 Z13.31 Routine screening for depression is found to be negative. No interventi ons are required [id number] MD [facility] [address] [place] [address] 02/14/2024 08:35:23 02/14/2024 09:17:48 Osteoarthritis of joint of right shoulder region 5462885256 67939 M19.188 [id number] MD [facility] [address] [place] [address] 03/08/2024 09:28:26 03/08/2024 10:21:33 Pre-surgery evaluation [id number] Z01.818 based on physical examinatio n historical data and objective studies obtained preoperati vely as well as physical exam today patient is cleared to proceed with surgery Full thick ness rotator cuff tear [id number] M75.121 This appears to be in acute process for which surgical treatment has been prescribed . Appropriat e Education in regards to signs and symptoms of deteriorat ion were discussed with the patient. As well expectatio ns for progress in treatment and improvemen t were also discussed. Essential hypertension [id number] I10 Patient returns today for follow-up of a chronic diagnosis of hypertensi on. Today's evaluation s suggest adequate control of disease process and no need for change in medication currently. systolic is mildly elevated but at her advanced age increasing medication s are only going to increase her stability issues and increase her fall risk. Generalize d osteoarthritis 347700785 M15.9 Patient is on chronic medication for osteoarthr itic disease. Overall level of function is good, and there was no evidence of side effect specifical ly gastric irritation . Ongoing treatment with appropriat e surveillan ce is appropriat e. [id number] [facility] [address] [place] [address] 04/01/2024 13:54:06 04/01/2024 15:08:23 History of reverse prosthetic total arthroplasty of right shoulder [id number] 8254090 Z96.246 [id number] [facility] [address] [place] [address] 04/29/2024 13:46:42 04/29/2024 14:27:50 History of reverse prosthetic total arthroplasty of right shoulder [id number] 9369963 Z96.604 [id number] MD [facility] [address] [place] [address] 04/29/2024 11:49:06 04/29/2024 12:35:25 Generalized osteoarthritis 336237136 M15.4 Patient is on chronic medication for osteoarthr itic disease. Overall level of function is good, and there was no evidence of side effect specifical ly gastric irritation . Ongoing treatment with appropriat e surveillan ce is appropriat e. Essential hypertension 87115319 I10 Patient returns today for follow-up of a chronic diagnosis of hypertensi on. Today's evaluation s suggest adequate control of disease process and no need for change in medication currently. systolic is mildly elevated but at her advanced age increasing medication s are only going to increase her stability issues and increase her fall risk. Lumbar spo ndylosis with myelopathy 83909703 M47.16 M48.07 she currently is involved in pain management in his anticipati ng the potential placement of a pain pump. I am going to go on and temporaril y supplement her with some hydrocodon e until she can have her interventi on completed Osteoporosis 39620918 M8 1.0 This represents a chronic process that has been stable on medication s for extended period of time. Currently there appears to be no toxicity or side effect and good response to treatment. For these reasons we will continue medication s as ordered. Gastric ulcer 491651255 K25.7 This represents a chronic process that has been stable on medication s for extended period of time. Currently there appears to be no toxicity or side effect and good response to treatment. For these reasons we will continue medication s as ordered. Standardiz ed adult depression screening tool completed [id number] 16692 Z13.31 Routine screening for depression is found to be negative. No interventi ons are required [id number] MD [facility] [address] [place] [address] 04/30/2024 10:12:25 05/01/2024 14:10:26 Essential hypertension 78118259 I10 Patient returns today for follow-up of a chronic diagnosis of hypertensi on. Today's evaluation s suggest adequate control of disease process and no need for change in medication currently. systolic is mildly elevated but at her advanced age increasing medication s are only going to increase her stability issues and increase her fall risk. Long-term current use of drug therapy 058344100 Z79.425 [id number] David duff MD [facility] [address] [place] [address] 05/16/2024 14:21:18 05/16/2024 15:10:45 Diastolic dysfunction 6477570 I50.32 Issues relative to today's discussion and diagnosis were addressed. All questions were attempted to be addressed and reconciled . Any particular necessary informatio n was dispensed Lumbar spo ndylosis with myelopathy 05217736 M47.16 M48.07 she currently is involved in pain management in his anticipati ng the potential placement of a pain pump. I am going to go on and temporaril y supplement her with some hydrocodon e until she can have her interventi on completed Essential hypertension 46853865 I10 Patient returns today for follow-up of [...] today we will offset are systolic elevation. [id number] David duff MD [facility] [address] [place] [address] 05/22/2024 12:07:58 05/22/2024 12:34:20 Lumbar spondylosis with myelopathy 44098315 M47.16 M48.07 she currently is involved in pain management in his anticipati ng the potential placement of a pain pump. I am going to go on and temporaril y supplement her with some hydrocodon e until she can have her interventi on completed Diastolic dysfunction 35 59822 I50.32 Issues relative to today's discussion and diagnosis were addressed. All questions were attempted to be addressed and reconciled . Any particular necessary informatio n was dispensed Full thick ness rotator cuff tear 257047503 M75.121 Roxy is currently involved in physical therapy in his responding well Standardiz ed adult depression screening tool completed [id number] 95134 Z13.31 Routine screening for depression is found to be negative. No interventi ons are required Edema of l eft lower limb 127219389 R60.0 Issues relative to today's discussion and [...] her best answer for the lower extremity [id number] GEORGES RED NP [facility] [address] [place], [place] [address] 06/10/2024 13:08:40 06/10/2024 13:51:23 History of reverse prosthetic total arthroplasty of right shoulder [id number] 9865994 Z96.550 [id number] SAY ESTEVES DO [facility] [address] [place], [place] [address] 06/05/2024 09:35:17 06/05/2024 11:18:42 History of reverse prosthetic total arthroplasty of right shoulder 8922247390 0205735 Z96.209 [id number] [facility] [address] [place] [phone] 06/14/2024 09:28:45 06/14/2024 12:02:17 Lumbar spondylosis with myelopathy 33738244 M47.16 M48.07 she currently is involved in pain management in his anticipati ng the potential placement of a pain pump. I am going to go on and temporaril y supplement her with some hydrocodon e until she can have her interventi on completed Standardiz ed adult depression screening tool completed [id number] 98892 Z13.31 Routine screening for depression is found to be negative. No interventi ons are required Edema of l eft lower limb 410257929 R60.0 Issues relative to today's discussion and [...] her best answer for the lower extremity [id number] Brian Patterson MD [facility] [address] [place] [address] 07/02/2024 13:55:16 07/02/2024 14:29:34 Pain of knee region 4074163384 M25.562 Prepatella r bursitis of left knee 2343898483 01786 M70.42 [id number] [facility] [address] [address] 07/22/2024 14:07:32 07/22/2024 14:43:39 History of reverse prosthetic total arthroplasty of right shoulder 8852498796 3850836 Z96.611 Prepatella r bursitis of left knee 6060102537 94209 M70.42 Health Concerns Section Related Observation LastModified by Organization Detai ls LastModified Time None Recorded Concern Status LastModified by Organization Details LastModified Time None Recorded Advance Directives Directive N: Payers Insurance Date Sequence Insurance Name Policy Number Policy Rico Covered Member ID Rico Member ID Guarantor Name 07/25/2024 2 [employer] (MEDICARE SUPPLEMENT) PLAN F Brandee Dupree [id number] Brandee Dupree 07/19/2024 1 [place] Brandee Dupree [id number] Brandee Dupree Notes Date Note Type [...] lump where the discoloration is. CHE3 SAY ESTEVES, [address] [facility],[address], [place], [address], [facility] & [place] 06/05/2024 12:29:28 06/10/2024 text/html This is a [...] apt last week. E1AP GEORGES RED NP [address] [place] [address],[address], [place], [address], [facility] & [place] 06/10/2024 14:47:54 06/14/2024 text/html Today is follow- up for bilateral lower extremity fluid retention she is doing much better after Lasix. It is of note that she is getting steroid injections in the lumbar spine that is seems to have some degree of David MD Titi [address] [place] [address] Drive,[address], [place], [address], [facility] & [place] 06/14/2024 10:26:23 07/02/2024 text/html This 78 year old female patient presents in the office today follow up of LEFT knee open area. 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 She reports it was healing well but became inflamed, red, and sore to touch so she went to [facility] on 06.26.24 and was started on Clindamycin that she continues at this time. We are getting x-rays in the office today; 07.02.24. She reports it has improved greatly. CHE4 Brian Patterson MD [address] [place] [address],[address], [place], [address], [facility] & [place] 07/03/2024 09:23:35 07/22/2024 text/html Pt is here for f /u of her rt reverse from Mar 2024. She reports the shoulder is a little sore from mowing her grass. Her left knee pes bursitis is better. She is no-longer on ABX. Doing well-E1SF GEORGES RED, [employer] [address] [facility],[address], [place], [address], [facility] 07/22/2024 14:45:34 OBGyn Episode No OBEpisode recorded.
--- OUTSIDE RECORDS SUMMARY | 2024-08-26 16:03 | XMS_ITS | Clinical Summary ---
Author Organization [facility] Address [address] [place] [address] Phone Care Team Providers Care Off Premise Service Representative Name Role Phone Butch LARA Stone Richardson [phone] Conditions or Problems Problem Name Problem Code Onset Date Status Entry Date Provider Comment Standard Description Annotate SPINAL STENOSIS, LUMBAR REGION WITH NEUROGENIC CLAUDICATION 984991035 (SNOMED CT) 11/14 Active 11/22 Elin Fernando [employer] Neurogenic claudication SCOLIOSIS DEFORMITY OF SPINE 359786515 (SNOMED CT) 11/14 Active 11/22 Elin Fernando [employer] Scoliosis deformity of spine SPONDYLOLISTH ESIS 763795370 (SNOMED CT) 11/14 Active 11/14 [facility] Spondylolisthesis Medications Medication Instructions Start Date Stop Date Generic Name NDC Provider GABAPENTIN 100 MG CAPS Take 1-3 capsule by mouth three times a day may increase dose as tolerated to up to 300 mg TID; start at 100mg TID 1 gabapentin [id number] Elin Fernando [employer] Medications Administered No information available. Allergies, Adverse [...]
--- OUTSIDE RECORDS SUMMARY | 2024-08-26 16:03 | XMS_ITS | Continuity of Care Document ---
Author Organization ID - [facility] Address [address] [place] [address] [place] [address] Care Team Providers Care Program Trainer Name Role Phone DAVID MOROCHO Primary Care [...] recorded. Imaging XR, shoulder 2024 025 [email or web address] [facility], [address] [place] [address] [place], [address], 07/22/2024 14:35:10 Medication Orders None recorded. Patient TargetsNo targets recorded. Patient InstructionsNo instructions recorded. Reason for Referral None Reported. Results Created Date Observation Date Name Description Value Unit Range Abnormal Flag Note LastModifiedBy Organization Detail LastModifiedTime 07/03/19 25 XR, knee No observ ation record ed. ALEJANDRA [address] [place], [address], 07/02/2024 14:09:42 07/23/19 25 XR, shoul tabitha No observ ation record ed. ALEJANDRA Khan [facility] [address] [facility] , [place], [address], 07/22/2024 14:30:28 Result Notes None recorded. Problems Name Problem SNOMED Code Status Onset Date Resolution Date Notes Provider Name and Address Organization Details Recorded Time Full thickness rotator cuff tear 703553217 Active [address], MD [address] [place] [address],[address], [address], [place] - [facility] - [place] & [place] 4 15:38:49 Standardize d adult depression screening tool completed 8626135258814 07 Active [address], MD [address] [place] [address],[facility] te [address] [place] [address], [address], [place] [facility] [place] & [place] 5 12:58:37 Diastolic dysfunction 2225981 Active [address], MD [address] [place] [address],Ashlee te [address] [place] [address], [phone], [place] [facility] [place] & [place] 5 15:16:24 Edema of left lower limb 962294083 Active [address], MD [address] [place] [address],Ashlee te [address] [place] [address], [phone], [place] [facility] & [place] 5 12:37:46 Dizziness 326992777 Active 2021 jillian grigsby, [place] [facility] - [place] & [place] 3 11:06:01 Essential hypertensio n 97659477 Active 2022 jillian grigsby, [place] [facility] - [place] & [place] 3 11:06:10 Osteoarthri tis of right knee joint 3953237462855 00 Active 2022 jillian briones null, [place] [facility] - [facility] & [place] 3 11:11:35 Sciatica 30855316 Active 2022 jillian anali null, [place] [facility] - [place] & [place] 3 11:11:48 Post[facility]au [facility] 40000034 Active 2022 jillian anali null, [place] [facility] & [place] 3 11:11:59 Osteoporosi s 94194800 Active 2022 jillian anali null, [place] [facility] & [place] 3 11:12:12 Generalized osteoarthri tis 534788511 Active [address], MD [address] [place] [address],[place]lee te [address] [place] [address], [phone], [place] [facility] - [place] & [place] 3 12:25:30 Lumbar spondylosis with myelopathy 62634315 Active [address], MD [address] [place] [address],[place]lee te [address] [place] [address], [phone], [place] [facility] [place] & [place] 4 09:49:34 Acquired dilation of bile duct 1910483011096 108 Active 2023 Stone Ward MD [address] [place] [address],[place]lee te [address] [place] [address], [phone], [place] [facility] [place] & [place] 4 17:11:00 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 Procedures Surgical History Date Name Laterality Status Provider Name and Address Organization Details Recorded Time fixation of hip completed jillian anali [place] - [facility] & [place] 11/16/2021 15:11:04 procedure on knee completed jillian HESTER [facility] & [place] 11/16/2021 15:11:27 complete repair of rotator cuff completed Hortensia [place] [facility] & [place] 01/10/2023 09:57:48 complete repair of rotator cuff completed Hortensia HESTER [facility] & [place] 01/10/2023 09:57:51 Imaging Results None recorded. Procedure [...] Updated DateTime 07/22/2024 170.18 cm Liza Hannah [facility] & [place] 07/22/2024 14:19:34 Social History Question Answer Notes LastModified by Organizat ion Details LastModified Time Tobacco Smoking Status Never Smoker jillian grigsby, KACIE [facility] & [place] 04/06/2022 11:12:39 Do You Have An Advance Directive? No Information not available 10/10/2022 Are You Blind Or Do You Have Difficulty Seeing? No [email or web address] Information not available 10/10/2022 Is Blood Transfusion [...] Would You Say Your Health Is Good [email or web address] Information not available 10/10/2022 How Would You Describe The Condition Of Your Mouth And Teeth including False Teeth Or Dentures? Very Good [email or web address] Information not available 10/10/2022 In The Past [...] Bread, 1 Cup Of Whole-grain Or High-fiber Abwpo-aq-fwy Cereal, 1 2 Cup Of Cooked Cereal Such As Oatmeal, Or 1 2 Cup Of Cooked Brown Rice Or Whole Wheat Pasta.) 3-4 Servings Per Day [email or web address] Information not available 10/10/2022 In The Past 7 Days, How Many Servings Of Fried Or High-fat Foods Did You Typically Eat Each Day? (Examples Include Fried Chicken, Fried Fish, [place], [place], Potato Chips, Ajo Chips, Doughnuts, Creamy Salad Dressings, And Foods Made With Whole Milk, Cream, Cheese, Or Mayonnaise.) 1-2 Servings Per Day [email or web address] Information not available 10/10/2022 In The Past 7 Days, How Many Sugar-sweetened (not Diet) Beverages Did You Typically Consume Each Day 3-4 Drinks Per Day [email or web address] Information not available 10/10/2022 Each Night, How Many Hours Of Sleep Do You Usually Get? 5-6 Hours [email or web address] Information not available 10/10/2022 Do You Snore Or Has Anyone Told You That You Snore? Yes [email or web address] Information not available 10/10/2022 In The Past 7 Days, How Often Have You [place] During The Daytime? Sometimes [email or web address] Information not available 10/10/2022 Do You Have Chronic Pain? Yes [email or web address] Information not available 10/10/2022 In The Past 7 Days, How Would You Rate Your Pain? Severe Pain(7-9) [email or web address] Information not available 10/10/2022 Are You In A Pain Management Program? No [email or web address] Information not available 10/10/2022 Do You Take Opioids For Your Pain? No [email or web address] Information not available 10/10/2022 How Often Is Stress A Problem For You In Handling Such Things As: Your Health, Your Finances, Your Family And Social Relationships, Your Work? Sometimes [email or web address] Information not available 10/10/2022 How Often Do You Get The Social And Emotional Support You Need: Always [email or web address] Information no t available 10/10/2022 In The Past 7 Days, Did You Need Help From Others To Take Care Of Things Such As Laundry And Housekeep- Ing, Banking, Shopping, Using The Telephone, Food Preparation, Transportation, Or Taking Your Own Medications? No [email or web address] Information not available 10/10/2022 Do You Live Alone? No [email or web address] Information not available 10/10/2022 Does Your Home Have Any Fall Risks (un-level Floors, Unfastened Rugs, Poor Lighting, Etc)? No [email or web address] Information not available 10/10/2022 What Was The Date Of Your Most Recent Tobacco Screening? 05/22/2024 [email or web address] Information not available 05/22/2024 How Many Children [...] Are You Passively Exposed To Smoke? No [email or web address] Information no t available 10/10/2022 What Types [...] use any illicit or recreational drugs? No [email or web address] Information not available 04/06/2022 Do you or have you ever used any other forms of tobacco or nicotine? No [email or web address] Information not available 01/24/2023 What is your level of alcohol consumption? None [email or web address] Information not available 04/06/2022 Are you currently [...] 01/24/2023 What is your exercise level? Moderate [email or web address] Information not available 10/10/2022 Mental Status Question Answer Note LastModified by Organizat ion Details LastModified Time Do you feel stressed (tense, restless, nervous, or anxious, or unable to sleep at night)? [id number] [email or web address] Information not available 10/10/2022 Do you have difficulty concentrating, remembering or making decisions? No [email or web address] Information no t available 01/24/2023 Family History Relationship Description Onset Age of this Age Resolved Age Notes LastModified by Organization Details LastModified Time Father Essential hypertension [email or web address] Not available 15:10:19 Mother Essential hypertension [email or web address] Not available 15:10:19 Medical History Condition Response [...] split virus, quadrivalent, PF 3 completed [place] [facility] & [place] 01/10/2023 11:26:48 COVID-19, mRNA, LNP-S, PF, 100 mcg/0.5mL dose or 50 mcg/0.25mL dose 1 completed [place], [place] - NT [facility] & [place] 08/17/2022 13:25:10 Influenza, high-dose, trivalent, PF 0 [place] [facility] & [place] 08/17/2022 13:25:10 Influenza, split virus, trivalent, preservative 8 completed [place] [facility] [facility] & [place] 08/17/2022 13:25:10 Td (adult), 2 Lf tetanus toxoid, preservative free, adsorbed 7 completed [place] [facility] & [place] 08/17/2022 13:25:10 Influenza, split virus, quadrivalent, PF 9 completed [place] [facility] & [place] 08/17/2022 13:25:10 COVID-19, mRNA, LNP-S, PF, 100 mcg/0.5mL dose or 50 mcg/0.25mL dose 1 completed Not Available [facility] 04/10/2023 09:05:03 COVID-19, mRNA, LNP-S, PF, 100 mcg/0.5mL dose or 50 mcg/0.25mL dose 1 completed Eduarda [place] [facility] [facility] & [place] 08/17/2022 13:25:10 COVID-19, mRNA, LNP-S, PF, 100 mcg/0.5mL dose or 50 mcg/0.25mL dose 1 completed Eduarda [place] [facility] & [place] 08/17/2022 13:25:10 Past Encounters Encounter ID Performer Location Encounter Start Date Encounter Closed Date Diagnosis/Indication Diagnosis SNOMED-CT Code Diagnosis ICD10 Code Diagnosis Note [id number] [facility] [place] [address]56[address] 9 07/02/2024 13:55:16 07/02/2024 14:29:34 Pain of knee region 4697834085 M25.562 Prepatella r bursitis of left knee 9844539996 27843 M70.42 [id number] GEORGES RED NP [address] [address] 07/22/2024 14:07:32 07/22/2024 14:43:39 History of reverse prosthetic total arthroplasty of right shoulder 8412402720 2556335 Z96.611 Prepatella r bursitis of left knee 2775765585 23777 M70.42 Health Concerns Section Related Observation LastModified by Organization Detai ls LastModified Time None Recorded Concern Status LastModified by Organization Details LastModified Time None Recorded Payers Encounter Date Sequence Insurance Name Policy Number Policy Rico Covered Member ID Rico Member ID Guarantor Name 07/22/2024 1 [place] Brandee Dupree [id number] Brandee Dupree 07/22/2024 2 AARP (MEDICARE SUPPLEMENT) PLAN F Barndee Gill [id number] Brandee Dupree Notes Date Note Type Note Provider Name and Address Organization Details Recorded Time 07/22/2024 text/html Pt is here for f/u of her rt reverse from Mar 2024. She reports the shoulder is a little sore from mowing her grass. Her left knee pes bursitis is better. She is no-longer on ABX. Doing well-E1SF GEORGES RED, KIERAN [address] [facility],[address], [place], [address], [facility] - [place] & [place] 07/22/2024 14:45:34 OBGyn Episode No OBEpisode recorded.
--- OUTSIDE RECORDS SUMMARY | 2024-08-26 16:03 | XMS_ITS | Clinical Summary ---
Author Organization [facility] Address [address] [place] [address] Phone Care Team Providers Care Workforce Development Assistant Name Role Phone John Walls MD Primary [...] Juan Alberto Christy MD; Location: [facility]; Service: Orthopedics Medical devices from this surgery are in the Medical Devices section. EYE SURGERY Bilateral cataracts SHOULDER ARTHROSCOPY 02/28/2014 Right RIGHT SHOULDER ARTHROSCOPY OPEN ROTATOR CUFF REPAIR; Surgeon: Juan Alberto Christy MD; Location: [facility]; Service: Orthopedics Medical devices from this [...] this topic Medical Devices Implanted Type Area Archival Studies Professor Device Identifier Shelf Expiration Date Model / Serial / Lot Bilateral Iol [place] [employer] Single Size 1 - [id number] Implanted:Qty: 1 on 11/08/2013 by Juan Alberto Christy MD at [facility] Right: Shoulder BIOMET 01/08/2018 [id number] / / [id number] [place] [employer] 2.9 With [employer] [place] - [id number] Implanted:Qty: 2 on 11/08/2013 by Juan Alberto Christy MD at [facility] Right: Shoulder BIOMET 08/08/2018 [id number] / / [id number] [place] [employer] 2.9 With [employer] [place] - [id number] Implanted:Qty: 1 on 02/28/2014 by Juan Alberto Christy MD at [facility] Right: Shoulder BIOMET 09/02/2018 [id number] / / [id number] [place] [employer] 2.9 With [employer] [place] - [id number] Implanted:Qty: 1 on 02/28/2014 by Juan Alberto Christy MD at [facility] Right: Shoulder BIOMET 09/02/2018 [id number] / / [id number] Insurance MEDICARE [place] PART A AND B [address] SUPPLEMENTAL Care Teams Workforce Development Assistant Relationship Specialty Start Date End Date John Walls MD [address] [place] [address] PCP - General Internal Medicine 11/08/13
--- OUTSIDE RECORDS SUMMARY | 2024-08-26 16:03 | XMS_ITS | Continuity of Care Document ---
Author Organization [place] - [facility] Address [address] [place] [address] Care Team Providers Care Case Management Director Name Role Phone DAVID MOROCHO Primary Care [...] d. Imaging XR, knee [phone] gabbi [facility], [address] [place] [address] [place], [address], 07/03/2024 09:09:40 Medication Orders None recorde d. Patient TargetsNo targets recorded. Patient InstructionsNo instructions recorded. Reason for Referral None Reported. Results Created Date Observation Date Name Description Value Unit Range Abnormal Flag Note LastModifiedBy Organization Detail LastModifiedTime 06/06/19 25 XR, shoul tabitha No observ ation record ed. ALEJANDRA [address] [place], [address], 06/05/2024 10:34:05 07/03/19 25 XR, knee No observ ation record ed. ALEJANDRA Khan [address] [place], [address], 07/02/2024 14:09:42 07/23/19 25 XR, shoul tabitha No observ ation record ed. ALEJANDRA Andres [address] [place], [address], 07/22/2024 14:30:28 Result Notes None recorded. Problems Name Problem SNOMED Code Status Onset Date Resolution Date Notes Provider Name and Address Organization Details Recorded Time Full thickness rotator cuff tear 371306455 Active [address], MD [address] [place] [address],Ashlee te [address] [place] [address], [address], [place] - [facility] - [place] & [place] 4 15:38:49 Standardize d adult depression screening tool completed [id number] 07 Active [address], MD [address] [place] [place] [address],Ashlee te [facility], [place], [address], [place] - [facility] - [place] & [place] 5 12:58:37 Diastolic dysfunction 3865673 Active [address], MD [address] [place] [address],Ashlee [address], [place], [address], [place] [facility] - [place] & [place] 5 15:16:24 Edema of left lower limb 477431005 Active [address], MD [address] [place] [address],Ashlee [address], [place], [address], [place] [facility] - [place] & [place] 5 12:37:46 Dizziness 979609025 Active 2021 jillian grigsby, [place] - [facility] - [place] & [place] 3 11:06:01 Essential hypertensio n 16228414 Active 2022 jillian grigsby, [place] - [facility] - [place] & [place] 3 11:06:10 Osteoarthri tis of right knee joint 2811890186752 00 Active 2022 jillian anali null, [place] - [facility] - [place] & [place] 3 11:11:35 Sciatica 57442008 Active 2022 jillian anali null, [place] - [facility] [place] & [place] 3 11:11:48 Postmenopau [place] 50859311 Active 2022 jillian anali null, [place] - [facility] - [place] & [place] 3 11:11:59 Osteoporosi s 03162023 Active 2022 jillian anali null, [place] [facility] [place] & [place] 3 11:12:12 Generalized osteoarthri tis 124088408 Active [address], MD [address] [place] [address] [place] [address], [address], [place] [facility] & [place] 3 12:25:30 Lumbar spondylosis with myelopathy 59914586 Active [address], MD [address] [place] [place] [address],[facility] te [address] [place] [address], [address], [place] - [facility] & [place] 4 09:49:34 Acquired dilation of bile duct 7294606573657 108 Active 2023 Stone Ward MD [address] [place] [place] [address],Ashlee te [address] [place] [address], [address], [place] [facility] & [place] 4 17:11:00 Pancreatic duct disorder 353018382 Active 2023 Stone Ward MD [address] [place] [place] [address],Ashlee te [address] [place] [address], [address], [place] - [facility] - [facility] & [place] 4 17:12:24 Gastric ulcer 641315651 Active 2023 Stone Ward MD [address] [place] [place] [address],[place] [address], [place], [address] [facility] KACIE - TIKI [facility] & [place] 15:46:00 Problem Notes None recorded. Procedures Surgical History Date Name Laterality Status Provider Name and Address Organization Details Recorded Time fixation of hip completed jillian HESTER - TIKI [facility] & [place] 11/16/2021 15:11:04 procedure on knee completed jillian FAIRBANKS [facility] & [place] 11/16/2021 15:11:27 complete repair of rotator cuff completed Hortensia HESTER - TIKI [facility] & [place] 01/10/2023 09:57:48 complete repair of rotator cuff completed Hortensia Chowdary KACIE QuVIS TIKI [facility] & [place] 01/10/2023 09:57:51 Imaging Results None [...] Status Never Smoker jillian grigsby, [place] - [facility] - [place] & [place] 04/06/2022 11:12:39 Do You Have An Advance Directive? No Information not available 10/10/2022 Are You Blind Or Do You Have Difficulty Seeing? No [email or web address] Information not available 10/10/2022 Is Blood Transfusion [...] Would You Say Your Health Is Good [email or web address] Information not available 10/10/2022 How Would You Describe The Condition Of Your Mouth And Teeth including False Teeth Or Dentures? Very Good [email or web address] Information not available 10/10/2022 In The Past 7 Days, How Many Servings Of Fruits And Vegetables Did You Typically Eat Each Day? (1 Serving = 1 Cup Of Fresh Vegetables, 1 2 Cup Of Cooked Vegetables, Or 1 Medium Piece Of Fruit. 1 Cup = Size Of A Baseball.) 5-6 Servings Per Day [email or web address] Information not available 10/10/2022 In The Past 7 Days, How Many Servings Of High Fiber Or Whole Grain Foods Did You Typically Eat Each Day? (1 Serving = 1 Slice Of 100% Whole Wheat Bread, 1 Cup Of Whole-grain Or High-fiber Vyccu-zk-jvs Cereal, 1 2 Cup Of Cooked Cereal Such As Oatmeal, Or 1 2 Cup Of Cooked Brown Rice Or Whole Wheat Pasta.) 3-4 Servings Per Day [email or web address] Information not available 10/10/2022 In The Past 7 Days, How Many Servings Of Fried Or High-fat Foods Did You Typically Eat Each Day? (Examples Include Fried Chicken, Fried Fish, Sands, Greek [place], Potato Chips, [place] Chips, Doughnuts, Creamy Salad Dressings, And Foods Made With Whole Milk, Cream, Cheese, Or Mayonnaise.) 1-2 Servings Per Day [email or web address] Information not available 10/10/2022 In The Past 7 Days, How Many Sugar-sweetened (not Diet) Beverages Did You Typically Consume Each Day 3-4 Drinks Per Day [email or web address] Information not available 10/10/2022 Each Night, How Many Hours Of Sleep Do You Usually Get? 5-6 Hours Information not available 10/10/2022 Do You Snore Or Has Anyone Told You That You Snore? Yes [email or web address] Information not available 10/10/2022 In The Past 7 Days, How Often Have You [place] Sleepy During The Daytime? Sometimes [email or web address] Information not available 10/10/2022 Do You Have Chronic Pain? Yes [email or web address] Information not available 10/10/2022 In The Past 7 Days, How Would You Rate Your Pain? Severe Pain(7-9) [email or web address] Information not available 10/10/2022 Are You In A Pain Management Program? No [email or web address] Information not available 10/10/2022 Do You Take Opioids For Your Pain? No [email or web address] Information not available 10/10/2022 How Often Is Stress A Problem For You In Handling Such Things As: Your Health, Your Finances, Your Family And Social Relationships, Your Work? Sometimes [email or web address] Information not available 10/10/2022 How Often Do You Get The Social And Emotional Support You Need: Always [email or web address] Information no t available 10/10/2022 In The Past 7 Days, Did You Need Help From Others To Take Care Of Things Such As Laundry And Housekeep- Ing, Banking, Shopping, Using The Telephone, Food Preparation, Transportation, Or Taking Your Own Medications? No [email or web address] Information not available 10/10/2022 Do You Live Alone? No Information not available 10/10/2022 Does Your Home Have Any Fall Risks (un-level Floors, Unfastened Rugs, Poor Lighting, Etc)? No [email or web address] Information not available 10/10/2022 What Was The Date Of Your Most Recent Tobacco Screening? 05/22/2024 Information not available 05/22/2024 How Many Children [...] Are You Passively Exposed To Smoke? No [email or web address] Information no t available 10/10/2022 What Types [...] use any illicit or recreational drugs? No [email or web address] Information not available 04/06/2022 Do you or have you ever used any other forms of tobacco or nicotine? No [email or web address] Information not available 01/24/2023 What is your level of alcohol consumption? None [email or web address] Information not available 04/06/2022 Are you currently [...] 01/24/2023 What is your exercise level? Moderate [email or web address] Information not available 10/10/2022 Mental Status Question Answer Note LastModified by Organizat ion Details LastModified Time Do you feel stressed (tense, restless, nervous, or anxious, or unable to sleep at night)? AE35582-1 [email or web address] Information not available 10/10/2022 Do you have difficulty concentrating, remembering or making decisions? No [email or web address]-13 Information no t available 01/24/2023 Family History Relationship Description Onset Age of this Age Resolved Age Notes LastModified by Organization Details LastModified Time Father Essential hypertension [email or web address] Not available 15:10:19 Mother Essential hypertension Not available 15:10:19 Medical History Condition Response [...] split virus, quadrivalent, PF 3 completed Eduarda River null, [place] - [facility] & [place] 01/10/2023 11:26:48 COVID-19, mRNA, LNP-S, PF, 100 mcg/0.5mL dose or 50 mcg/0.25mL dose 1 completed Eduarda River null, [place] - [facility] 08/17/2022 13:25:10 Influenza, high-dose, trivalent, PF 0 completed Eduarda River null, [place] - [facility] & [place] 08/17/2022 13:25:10 Influenza, split virus, trivalent, preservative 8 completed Eduarda River null, [place] - [facility] & [place] 08/17/2022 13:25:10 Td (adult), 2 Lf tetanus toxoid, preservative free, adsorbed 7 completed Eduarda River null[place] [facility] & [place] 08/17/2022 13:25:10 Influenza, split virus, quadrivalent, PF 9 completed Eduarda River null, [place] [facility] & [place] 08/17/2022 13:25:10 COVID-19, mRNA, LNP-S, PF, 100 mcg/0.5mL dose or 50 mcg/0.25mL dose 1 completed [facility] Available [facility] 04/10/2023 09:05:03 COVID-19, mRNA, LNP-S, PF, 100 mcg/0.5mL dose or 50 mcg/0.25mL dose 1 completed [facility] & [place] 08/17/2022 13:25:10 COVID-19, mRNA, LNP-S, PF, 100 mcg/0.5mL dose or 50 mcg/0.25mL dose 1 completed Eduarda grigsby KACIE [facility] & [place] 08/17/2022 13:25:10 Past Encounters Encounter ID Performer Location Encounter Start Date Encounter Closed Date Diagnosis/Indication Diagnosis SNOMED-CT Code Diagnosis ICD10 Code Diagnosis Note [id number] KIERAN CHRISTENSEN [address] [address] 06/10/2024 13:08:40 06/10/2024 13:51:23 History of reverse prosthetic total arthroplasty of right shoulder 0343132670 7150128 Z96.580 [id number] DO ANDRES CASTELLON [place] [address] 06/05/2024 09:35:17 06/05/2024 11:18:42 History of reverse prosthetic total arthroplasty of right shoulder 2709893572 5482755 Z96.587 [id number] MD ANDRES [facility] [address] [place] [address] 06/14/2024 09:28:45 06/14/2024 12:02:17 Lumbar spondylosis with myelopathy 69682302 M47.16 M48.07 she currently is involved in pain management in his anticipati ng the potential placement of a pain pump. I am going to go on and temporaril y supplement her with some hydrocodon e until she can have her interventi on completed Standardiz ed adult depression screening tool completed 0575807790 05877 Z13.31 Routine screening for depression is found to be negative. No interventi ons are required Edema of l eft lower limb 081202080 R60.0 Issues relative to today's discussion and [...] her best answer for the lower extremity [id number] Brian Patterson MD [facility] [address] [place] [address] 07/02/2024 13:55:16 07/02/2024 14:29:34 Pain of knee region 8685250539 M25.562 Prepatella r bursitis of left knee 8729900681 25819 M70.42 Health Concerns Section Related Observation LastModified by Organization Detai ls LastModified Time None Recorded Concern Status LastModified by Organization Details LastModified Time None Recorded Payers Encounter Date Sequence Insurance Name Policy Number Policy Rico Covered Member ID Rico Member ID Guarantor Name 07/02/2024 1 [place] Brandee Dupree [id number] Brandee Dupree 07/02/2024 2 AARP (MEDICARE SUPPLEMENT) PLAN F Brandee Dupree [id number] Brandee Dupree Notes Date Note Type Note [...] sore to touch so she went to [facility] ED on 06.26.24 and was started on Clindamycin that she continues at this time. We are getting x-rays in the office today; 07.02.24. She reports it has improved greatly. CHE4 Brian Patterson MD [address] [facility],[address], [place], [address], [facility] - [facility] - [place] & [place] 07/03/2024 09:23:35 OBGyn Episode No OBEpisode recorded.
--- OUTSIDE RECORDS SUMMARY | 2024-08-26 16:03 | XMS_ITS | Clinical Summary ---
Author Organization [facility] Address [address] [place] [address] Care Team Providers Care Mink Rancher Name Role Phone John Walls MD Primary Care Provider [phone] Source Comments This information has been disclosed [...] therelease of HIV test results or diagnoses. [id number] Allergies No known active allergies Medications [...] Dupree Relation to Subscriber:Self Name:Brandee Dupree Payer ID:[id number] Group ID:Not on file Type:Medicare Address: [address] Care Teams Mink Rancher Relationship Specialty Start Date End Date John Walls MD [address] [place] [address] PCP - General Internal Medicine 10/11/23
== END 2024-08-26 23:59 | disposition home or self-care (01) ==
LOC: RAD 16:00
PROVIDERS: PCP Internal Medicine; Visit Provider Nurse Practitioner Family
DX: M47.816 Spondylosis without myelopathy or radiculopathy, lumbar region (principal); M47.814 Spondylosis without myelopathy or radiculopathy, thoracic region; M51.26 Other intervertebral disc displacement, lumbar region; M51.27 Other intervertebral disc displacement, lumbosacral region; M53.86 Other specified dorsopathies, lumbar region; M99.73 Connective tissue and disc stenosis of intervertebral foramina of lumbar region; M99.72 Connective tissue and disc stenosis of intervertebral foramina of thoracic region; M43.16 Spondylolisthesis, lumbar region; M41.86 Other forms of scoliosis, lumbar region; K82.8 Other specified diseases of gallbladder; Q61.02 Congenital multiple renal cysts
CPT/HCPCS: 72148

== ENCOUNTER 2024-08-29 08:38 | Outpatient (CLI) | payer MEDICARE, SELFPAY ==
--- OUTSIDE RECORDS SUMMARY | 2024-08-29 08:53 | XMS_ITS | Clinical Summary ---
Author Organization [facility] Address [address] [place] [address] Phone Care Team Providers Care Urology Nurse Name Role Phone John Walls MD Primary [...] (GEN/SCALENE); Surgeon: Juan Alberto Christy MD; Location: [facility]; Service: Orthopedics Medical devices from this surgery are in the Medical Devices section. EYE SURGERY Bilateral cataracts SHOULDER ARTHROSCOPY 02/28/2014 Right RIGHT SHOULDER ARTHROSCOPY OPEN ROTATOR CUFF REPAIR; Surgeon: Juan Alberto Christy MD; Location: [facility]; Service: Orthopedics Medical devices from this [...] this topic Medical Devices Implanted Type Area Skein Mercerizing Machine Operator Device Identifier Shelf Expiration Date Model / Serial / Lot Bilateral Iol [employer] Single Size 1 - [id number] Implanted:Qty: 1 on 11/08/2013 by Juan Alberto Christy MD at [facility] Right: Shoulder BIOMET 01/08/2018 [id number] / / [id number] [employer] 2.9 With [employer] [place] - [id number] Implanted:Qty: 2 on 11/08/2013 by Juan Alberto Christy MD at [facility] Right: Shoulder BIOMET 08/08/2018 [id number] / / [id number] [employer] 2.9 With [employer] [place] - [id number] Implanted:Qty: 1 on 02/28/2014 by Juan Alberto Christy MD at [facility] Right: Shoulder BIOMET 09/02/2018 [id number] / / [id number] [employer] 2.9 With [employer] [place] - [id number] Implanted:Qty: 1 on 02/28/2014 by Juan Alberto Christy MD at [facility] Right: Shoulder BIOMET 09/02/2018 [id number] / / [id number] Insurance MEDICARE [place] PART A AND B [address] SUPPLEMENTAL Care Teams Urology Nurse Relationship Specialty Start Date End Date John Walls MD [address] [place] [address] PCP - General Internal Medicine 11/08/13
--- OUTSIDE RECORDS SUMMARY | 2024-08-29 08:53 | XMS_ITS | Clinical Summary ---
Author Organization [facility] Address [address] [place] [address] Phone Care Team Providers Care Eye Glass Frame Polisher Name Role Phone Butch LARA Stone Richardson [phone] Conditions or Problems Problem Name Problem Code Onset Date Status Entry Date Provider Comment Standard Description Annotate SPINAL STENOSIS, LUMBAR REGION WITH NEUROGENIC CLAUDICATION 543549732 (SNOMED CT) 11/14 Active 11/22 Elin Fernando TENNIS PROFESSIONAL Neurogenic claudication SCOLIOSIS DEFORMITY OF SPINE 515989218 (SNOMED CT) 11/14 Active 11/22 Elin Fernando TENNIS PROFESSIONAL Scoliosis deformity of spine SPONDYLOLISTH ESIS 991323899 (SNOMED CT) 11/14 Active 11/14 [facility] Spondylolisthesis Medications Medication Instructions Start Date Stop Date Generic Name NDC Provider GABAPENTIN 100 MG CAPS Take 1-3 capsule by mouth three times a day may increase dose as tolerated to up to 300 mg TID; start at 100mg TID 1 gabapentin [id number] Elin Fernando TENNIS PROFESSIONAL Medications Administered No information available. Allergies, Adverse [...]
--- OUTSIDE RECORDS SUMMARY | 2024-08-29 08:53 | XMS_ITS | Clinical Summary ---
Author Organization [facility] Address [address] [place] [address] Care Team Providers Care Business Services Specialist Sales Name Role Phone John Walls MD Primary Care Provider [phone] Source Comments This information has been disclosed [...] therelease of HIV test results or diagnoses. [id number] Allergies No known active allergies Medications [...] Dupree Relation to Subscriber:Self Name:Brandee Dupree Payer ID:[id number] Group ID:Not on file Type:Medicare Address: [address] Care Teams Business Services Specialist Sales Relationship Specialty Start Date End Date John Walls MD [address] [place] [address] PCP - General Internal Medicine 10/11/23
--- OUTSIDE RECORDS SUMMARY | 2024-08-29 08:53 | XMS_ITS | Continuity of Care Document ---
Author Organization [place] - [facility] Address [address] [place] [address] [place] [address] Care Team Providers Care Professor Of Visual Arts Name Role Phone DAVID MOROCHO Primary Care [...] recorded. Imaging XR, shoulder 2024 025 [email or web address] [facility], [address] [place] [address] [place], [address], 07/22/2024 14:35:10 Medication Orders None recorded. Patient TargetsNo targets recorded. Patient InstructionsNo instructions recorded. Reason for Referral None Reported. Results Created Date Observation Date Name Description Value Unit Range Abnormal Flag Note LastModifiedBy Organization Detail LastModifiedTime 07/03/19 25 XR, knee No observ ation record ed. ALEJANDRA [address] [place], [address], 07/02/2024 14:09:42 07/23/19 25 XR, shoul tabitha No observ ation record ed. ALEJANDRA [facility] [address] [facility] , [place], [address], 07/22/2024 14:30:28 08/28/19 25 08/26/2024 MRI, lumba r spine , w/o contr ast No observ ation record ed. [email or web address] [facility] [address], [place], [place], [address], 08/27/2024 16:33:22 Result Notes None recorded. Problems Name Problem SNOMED Code Status Onset Date Resolution Date Notes Provider Name and Address Organization Details Recorded Time Full thickness rotator cuff tear 960043651 Active [address], MD [address] [place] [address],Ashlee te [address] [place] [address], [address], [place] - [facility] - [place] & [place] 4 15:38:49 Standardize d adult depression screening tool completed 3874312439312 07 Active [address], MD [address] [place] [address],[address], [place], [address], [place] [facility] [place] & [place] 5 12:58:37 Diastolic dysfunction 6447586 Active [address], MD [address] [place] [address],[address], [place], [address], [place] [facility] [place] & [place] 5 15:16:24 Edema of left lower limb 105584348 Active [address], MD [address] [place] [address],[address], [place], [address], [place] [facility] - [place] & [place] 5 12:37:46 Dizziness 825754416 Active 2021 jillian grigsby, [place] - [place] - [place] & [place] 3 11:06:01 Essential hypertensio n 62295762 Active 2022 jillian grigsby, [place] - [facility] - [place] & [place] 3 11:06:10 Osteoarthri tis of right knee joint 5517089658049 00 Active 2022 jillian anali null, [place] [facility] - [place] & [place] 3 11:11:35 Sciatica 17935565 Active 2022 jillian anali null, [place] [place] & [place] 3 11:11:48 Postmenopau [place] 59473882 Active 2022 jillian anali null, [place] & [place] 3 11:11:59 Osteoporosi s 59068487 Active 2022 jillian anali null, [place] & [place] 3 11:12:12 Generalized osteoarthri tis 791961690 Active [address], MD [address] [place] [address], [address], [place] [facility] - [facility] & [place] 3 12:25:30 Lumbar spondylosis with myelopathy 70862324 Active [address], MD [address] [place] [address],[facility] te [address] [place] [address], [address], [place] [facility] - [facility] & [place] 4 09:49:34 Acquired dilation of bile duct 1811139982728 108 Active 2023 Stone Ward MD [address] [place] [address],Ashlee te [address] [place] [address], [address], [place] [facility] & [place] 4 17:11:00 Pancreatic duct disorder 455311157 Active 2023 Stone Ward MD [address] [place] [address],[facility] te [address] [place] [address], [address], [place] [facility] - [facility] & [place] 4 17:12:24 Gastric ulcer 614148270 Active 2023 Stone Ward MD [address] [place] [address],[address], [place], [address] [facility] [place] - [facility] & [place] 15:46:00 Problem Notes None recorded. Procedures Surgical History Date Name Laterality Status Provider Name and Address Organization Details Recorded Time fixation of hip completed jillian FAIRBANKS [facility] & [place] 11/16/2021 15:11:04 procedure on knee completed jillian FAIRBANKS [facility] & [place] 11/16/2021 15:11:27 complete repair of rotator cuff completed Hortensia FAIRBANKS [facility] & [place] 01/10/2023 09:57:48 complete repair of rotator cuff completed Hortensia FAIRBANKS [facility] & [place] 01/10/2023 09:57:51 Imaging Results None recorded. Procedure [...] Last Updated DateTime 07/22/2024 170.18 cm Liza FAIRBANKS [facility] & [place] 07/22/2024 14:19:34 Social History Question Answer Notes LastModified by Organizat ion Details LastModified Time Tobacco Smoking Status Never Smoker jillian grigsby, [place] FAIRBANKS [facility] & [place] 04/06/2022 11:12:39 Do You Have An Advance Directive? No [email or web address] Information not available 10/10/2022 Are You Blind Or Do You Have Difficulty Seeing? No [email or web address] Information not available 10/10/2022 Is Blood Transfusion [...] Would You Say Your Health Is Good [email or web address] Information not available 10/10/2022 How Would You Describe The Condition Of Your Mouth And Teeth including False Teeth Or Dentures? Very Good [email or web address] Information not available 10/10/2022 In The Past 7 Days, How Many Servings Of Fruits And Vegetables Did You Typically Eat Each Day? (1 Serving = 1 Cup Of Fresh Vegetables, 1 2 Cup Of Cooked Vegetables, Or 1 Medium Piece Of Fruit. 1 Cup = Size Of A Baseball.) 5-6 Servings Per Day [email or web address] Information not available 10/10/2022 In The Past 7 Days, How Many Servings Of High Fiber Or Whole Grain Foods Did You Typically Eat Each Day? (1 Serving = 1 Slice Of 100% Whole Wheat Bread, 1 Cup Of Whole-grain Or High-fiber Iysiu-vz-rgw Cereal, 1 2 Cup Of Cooked Cereal Such As Oatmeal, Or 1 2 Cup Of Cooked Brown Rice Or Whole Wheat Pasta.) 3-4 Servings Per Day Information not available 10/10/2022 In The Past 7 Days, How Many Servings Of Fried Or High-fat Foods Did You Typically Eat Each Day? (Examples Include Fried Chicken, Fried Fish, Sands, Swazi [place], Potato Chips, Lynn Chips, Doughnuts, Creamy Salad Dressings, And Foods Made With Whole Milk, Cream, Cheese, Or Mayonnaise.) 1-2 Servings Per Day [email or web address] Information not available 10/10/2022 In The Past 7 Days, How Many Sugar-sweetened (not Diet) Beverages Did You Typically Consume Each Day 3-4 Drinks Per Day [email or web address] Information not available 10/10/2022 Each Night, How Many Hours Of Sleep Do You Usually Get? 5-6 Hours [email or web address] Information not available 10/10/2022 Do You Snore Or Has Anyone Told You That You Snore? Yes [email or web address] Information not available 10/10/2022 In The Past 7 Days, How Often Have You Murphy Sleepy During The Daytime? Sometimes [email or web address] Information not available 10/10/2022 Do You Have Chronic Pain? Yes Information not available 10/10/2022 In The Past 7 Days, How Would You Rate Your Pain? Severe Pain(7-9) Information not available 10/10/2022 Are You In A Pain Management Program? No Information not available 10/10/2022 Do You Take Opioids For Your Pain? No Information not available 10/10/2022 How Often Is Stress A Problem For You In Handling Such Things As: Your Health, Your Finances, Your Family And Social Relationships, Your Work? Sometimes Information not available 10/10/2022 How Often Do You Get The Social And Emotional Support You Need: Always [email or web address] Information no t available 10/10/2022 In The Past 7 Days, Did You Need Help From Others To Take Care Of Things Such As Laundry And Housekeep- Ing, Banking, Shopping, Using The Telephone, Food Preparation, Transportation, Or Taking Your Own Medications? No Information not available 10/10/2022 Do You Live Alone? No [email or web address] Information not available 10/10/2022 Does Your Home Have Any Fall Risks (un-level Floors, Unfastened Rugs, Poor Lighting, Etc)? No [email or web address] Information not available 10/10/2022 What Was The [...] Are You Passively Exposed To Smoke? No [email or web address] Information no t available 10/10/2022 What Types [...] use any illicit or recreational drugs? No [email or web address] Information not available 04/06/2022 Do you or have you ever used any other forms of tobacco or nicotine? No [email or web address] Information not available 01/24/2023 What is your level of alcohol consumption? None [email or web address] Information not available 04/06/2022 Are you currently [...] 01/24/2023 What is your exercise level? Moderate [email or web address] Information not available 10/10/2022 Mental Status Question Answer Note LastModified by Organizat ion Details LastModified Time Do you feel stressed (tense, restless, nervous, or anxious, or unable to sleep at night)? [id number] [email or web address] Information not available 10/10/2022 Do you have difficulty concentrating, remembering or making decisions? No [email or web address] Information no t available 01/24/2023 Family History Relationship Description Onset Age of this Age Resolved Age Notes LastModified by Organization Details LastModified Time Father Essential hypertension [email or web address] Not available 15:10:19 Mother Essential hypertension [email or web address] Not available 15:10:19 Medical History Condition Response [...] split virus, quadrivalent, PF 3 completed Eduarda grigsby [place] - [facility] 01/10/2023 11:26:48 COVID-19, mRNA, LNP-S, PF, 100 mcg/0.5mL dose or 50 mcg/0.25mL dose 1 completed Eduarda grigsby [place] - [facility] 08/17/2022 13:25:10 Influenza, high-dose, trivalent, PF 0 completed Eduarda [place] [facility] & [place] 08/17/2022 13:25:10 Influenza, split virus, trivalent, preservative 8 completed Eduarda [place] [facility] & [place] 08/17/2022 13:25:10 Td (adult), 2 Lf tetanus toxoid, preservative free, adsorbed 7 completed Eduarda grigsby [place] - [facility] & [place] 08/17/2022 13:25:10 Influenza, split virus, quadrivalent, PF 9 completed [place] [facility] & [place] 08/17/2022 13:25:10 COVID-19, mRNA, LNP-S, PF, 100 mcg/0.5mL dose or 50 mcg/0.25mL dose 1 completed Not Available [facility] 04/10/2023 09:05:03 COVID-19, mRNA, LNP-S, PF, 100 mcg/0.5mL dose or 50 mcg/0.25mL dose 1 completed Eduarda [place], [place] [facility] & [place] 08/17/2022 13:25:10 COVID-19, mRNA, LNP-S, PF, 100 mcg/0.5mL dose or 50 mcg/0.25mL dose 1 completed [place] [facility] & [place] 08/17/2022 13:25:10 Past Encounters Encounter ID Performer Location Encounter Start Date Encounter Closed Date Diagnosis/Indication Diagnosis SNOMED-CT Code Diagnosis ICD10 Code Diagnosis Note [id number] [facility] [address] 07/02/2024 13:55:16 07/02/2024 14:29:34 Pain of knee region 7429757419 M25.562 Prepatella r bursitis of left knee 0789826667 30729 M70.42 [id number] KIERAN CHRISTENSEN [address] [address] 07/22/2024 14:07:32 07/22/2024 14:43:39 History of reverse prosthetic total arthroplasty of right shoulder 6160326364 6632565 Z96.611 Prepatella r bursitis of left knee 6649611351 99776 M70.42 Health Concerns Section Related Observation LastModified by Organization Detai ls LastModified Time None Recorded Concern Status LastModified by Organization Details LastModified Time None Recorded Payers Encounter Date Sequence Insurance Name Policy Number Policy Rico Covered Member ID Rico Member ID Guarantor Name 07/22/2024 1 [place] Brandee Dupree [id number] Brandee Dupree 07/22/2024 2 AARP (MEDICARE SUPPLEMENT) PLAN F Brandee Dupree [id number] Brandee Dupree Notes Date Note Type Note Provider Name and Address Organization Details Recorded Time 07/22/2024 text/html Pt is here for f/u of her rt reverse from Mar 2024. She reports the shoulder is a little sore from mowing her grass. Her left knee pes bursitis is better. She is no-longer on ABX. Doing well-[id number] [place] [address] [facility], [place], [address], [facility] - [facility] - [facility] 07/22/2024 14:45:34 OBGyn Episode No OBEpisode recorded.
--- OUTSIDE RECORDS SUMMARY | 2024-08-29 08:53 | XMS_ITS | Data Portability ---
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 Imaging XR, shoulder 2024 025 [email or web address] [facility], [address] [place] [address] [place], [address], 07/22/2024 14:35:10 XR, knee 2024 025 [email or web address] [facility], [address] [place] [address] [place], [address], 07/03/2024 09:09:40 XR, shoulder 2024 025 [email or web address] [facility], [address] [place] [address] [place], [address], 06/05/2024 13:04:58 Medication Orders None recorded. Patient TargetsNo targets recorded. Patient InstructionsNo instructions recorded. Reason for Referral None Reported. Results Created Date Observation Date Name Description Value Unit Range Abnormal Flag Note LastModifiedBy Organization Detail LastModifiedTime 06/06/19 25 XR, shoul tabitha No observ ation record ed. ALEJANDRA Khan [address] [place], [address], 06/05/2024 10:34:05 07/03/19 25 XR, knee No observ ation record ed. ALEJANDRA Khan [address] [place], [address], 07/02/2024 14:09:42 07/23/19 25 XR, shoul tabitha No observ ation record ed. ALEJANDRA Khan [address] [place], [address], 07/22/2024 14:30:28 08/28/19 25 08/26/2024 MRI, lumba r spine , w/o contr ast No observ ation record ed. [email or web address] [facility] [address], [place], [address], 08/27/2024 16:33:22 Result Notes None recorded. Problems Name Problem SNOMED Code Status Onset Date Resolution Date Notes Provider Name and Address Organization Details Recorded Time Full thickness rotator cuff tear 308137626 Active [address], MD [address] [place] [address],Ashlee [address] [place] [address], [address], [facility] - [facility] & [place] 4 15:38:49 Standardize d adult depression screening tool completed 4779598969934 07 Active [address], MD [address] [place] [address],[address], [place], [address], [facility] - [facility] & [place] 5 12:58:37 Diastolic dysfunction 3804984 Active [address], MD [facility],[address], [place], [address], [place] - [facility] & [place] 5 15:16:24 Edema of left lower limb 062634894 Active [address], MD [address] [place] [address],[address], [place], [address], [place] - [facility] & [place] 5 12:37:46 Dizziness 334602967 Active 2021 jillian anali null, [place] - [facility] - [facility] & [place] 3 11:06:01 Essential hypertensio n 10105296 Active 2022 jillian anali null, [place] - [facility] - [place] & [place] 3 11:06:10 Osteoarthri tis of right knee joint 1339864736148 00 Active 2022 jillian anali null, [place] - [facility] [place] & [place] 3 11:11:35 Sciatica 92565528 Active 2022 jillian anali null, [place] - [facility] & [place] 3 11:11:[address] [facility] 27727534 Active 2022 jillian anali null, [place] - [facility] - [facility] & [place] 3 11:11:59 Osteoporosi s 24141873 Active 2022 jillian anali null, [place] - [facility] - [facility] & [place] 3 11:12:12 Generalized osteoarthri tis 006546708 Active [address], MD [facility],[address], [place], [address], [place] - [facility] - [place] & [place] 3 12:25:30 Lumbar spondylosis with myelopathy 52056922 Active [address], MD [facility],[address], [place], [address], [place] - [facility] - [place] & [place] 4 09:49:34 Acquired dilation of bile duct 1134657445440 108 Active 2023 Stone Ward MD [address] [place] [address],[address], [address], [place] - [facility] - [place] & [place] 4 17:11:00 Pancreatic duct disorder 661940309 Active 2023 Stone Ward MD [address] [place] [address],[place] [address], [place], [address], [place] - [facility] [place] & [place] 4 17:12:24 Gastric ulcer 596818964 Active 2023 Stone Ward MD [address] [place] [address],[place] [address], [place], [address], [place] - [facility] - [place] & [place] 4 15:46:00 Problem Notes None recorded. Procedures Surgical History Date Name Laterality Status Provider Name and Address Organization Details Recorded Time fixation of hip completed jillian anali [employer] - [facility] & [place] 11/16/2021 15:11:04 procedure on knee completed jillian anali [place] - [facility] & [place] 11/16/2021 15:11:27 complete repair of rotator cuff completed [employer] - [facility] & [place] 01/10/2023 09:57:48 complete repair of rotator cuff completed [employer] - [facility] & [place] 01/10/2023 09:57:51 Imaging Results None recorded. [...] Last Updated DateTime 170.18 cm 19.8 kg/m2 67771.7 4 g 97.6 [degF] 94 % 94 % 60 /min 18 /min 154 mm[Hg] 80 mm[Hg] Eduarda Perico [facility] & [place] 09:37:46 Date Recorded Body height Provider Name an d Address Organization Details Last Updated DateTime 07/22/2024 170.18 cm Liza [facility] & [place] 07/22/2024 14:19:34 Social History Question Answer Notes LastModified by Organizat ion Details LastModified Time Tobacco Smoking Status Never Smoker jillian stollbolivar grigsby, [facility] & [place] 04/06/2022 11:12:39 Do You Have An Advance Directive? No Information not available 10/10/2022 Are You Blind Or Do You Have Difficulty Seeing? No [email or web address] Information not available 10/10/2022 Is Blood Transfusion [...] Would You Say Your Health Is Good [email or web address] Information not available 10/10/2022 How Would You Describe The Condition Of Your Mouth And Teeth including False Teeth Or Dentures? Very Good Information not available 10/10/2022 In The Past 7 Days, How Many Servings Of Fruits And Vegetables Did You Typically Eat Each Day? (1 Serving = 1 Cup Of Fresh Vegetables, 1 2 Cup Of Cooked Vegetables, Or 1 Medium Piece Of Fruit. 1 Cup = Size Of A Baseball.) 5-6 Servings Per Day [email or web address] Information not available 10/10/2022 In The Past 7 Days, How Many Servings Of High Fiber Or Whole Grain Foods Did You Typically Eat Each Day? (1 Serving = 1 Slice Of 100% Whole Wheat Bread, 1 Cup Of Whole-grain Or High-fiber Yduld-wg-vbe Cereal, 1 2 Cup Of Cooked Cereal Such As Oatmeal, Or 1 2 Cup Of Cooked Brown Rice Or Whole Wheat Pasta.) 3-4 Servings Per Day [email or web address] Information not available 10/10/2022 In The Past 7 Days, How Many Servings Of Fried Or High-fat Foods Did You Typically Eat Each Day? (Examples Include Fried Chicken, Fried Fish, [place], Turkish [place], Potato Chips, [place] Chips, Doughnuts, Creamy Salad Dressings, And Foods Made With Whole Milk, Cream, Cheese, Or Mayonnaise.) 1-2 Servings Per Day [email or web address] Information not available 10/10/2022 In The Past 7 Days, How Many Sugar-sweetened (not Diet) Beverages Did You Typically Consume Each Day 3-4 Drinks Per Day [email or web address] Information not available 10/10/2022 Each Night, How Many Hours Of Sleep Do You Usually Get? 5-6 Hours [email or web address] Information not available 10/10/2022 Do You Snore Or Has Anyone Told You That You Snore? Yes [email or web address] Information not available 10/10/2022 In The Past 7 Days, How Often Have You [place] Sleepy During The Daytime? Sometimes [email or web address] Information not available 10/10/2022 Do You Have Chronic Pain? Yes [email or web address] Information not available 10/10/2022 In The Past 7 Days, How Would You Rate Your Pain? Severe Pain(7-9) [email or web address] Information not available 10/10/2022 Are You In A Pain Management Program? No [email or web address] Information not available 10/10/2022 Do You Take Opioids For Your Pain? No [email or web address] Information not available 10/10/2022 How Often Is Stress A Problem For You In Handling Such Things As: Your Health, Your Finances, Your Family And Social Relationships, Your Work? Sometimes [email or web address] Information not available 10/10/2022 How Often Do You Get The Social And Emotional Support You Need: Always [email or web address] Information no t available 10/10/2022 In The Past 7 Days, Did You Need Help From Others To Take Care Of Things Such As Laundry And Housekeep- Ing, Banking, Shopping, Using The Telephone, Food Preparation, Transportation, Or Taking Your Own Medications? No [email or web address] Information not available 10/10/2022 Do You Live Alone? No [email or web address] Information not available 10/10/2022 Does Your Home Have Any Fall Risks (un-level Floors, Unfastened Rugs, Poor Lighting, Etc)? No [email or web address] Information not available 10/10/2022 What Was The Date Of Your Most Recent Tobacco Screening? 05/22/2024 [email or web address] Information not available 05/22/2024 How Many Children [...] Are You Passively Exposed To Smoke? No [email or web address] Information no t available 10/10/2022 What Types [...] use any illicit or recreational drugs? No [email or web address] Information not available 04/06/2022 Do you or have you ever used any other forms of tobacco or nicotine? No [email or web address] Information not available 01/24/2023 What is your level of alcohol consumption? None [email or web address] Information not available 04/06/2022 Are you currently [...] 01/24/2023 What is your exercise level? Moderate [email or web address] Information not available 10/10/2022 Mental Status Question Answer Note LastModified by Organizat Moni Details LastModified Time Do you feel stressed (tense, restless, nervous, or anxious, or unable to sleep at night)? [id number] [email or web address] Information not available 10/10/2022 Do you have difficulty concentrating, remembering or making decisions? No [email or web address] Information no t available 01/24/2023 Family History Relationship Description Onset Age of this Age Resolved Age Notes LastModified by Organization Details LastModified Time Father Essential hypertension [email or web address] Not available 15:10:19 Mother Essential hypertension [email or web address] Not available 15:10:19 Medical History Condition Response [...] N Diverticulitis N Asthma N Reflux/GERD N Sleep Apnea N Jaundice N GERD/Reflux N Hepatitis N Cirrhosis N Heart Disease N Pulmonary Embolism N Hypertension Y Chronic Ear Infections N Osteoporosis Y Gynecological HistoryNo gynecological history recorded. Obstetrics History GPAL:G 0 P 0 0 0 0 Immunizations Vaccine Type Date Status Note Provider Nam e and Address Organization Details Recorded Time Influenza, split virus, quadrivalent, PF 3 completed Eduarda Perico null, [place] - [facility] & [place] 01/10/2023 11:26:48 COVID-19, mRNA, LNP-S, PF, 100 mcg/0.5mL dose or 50 mcg/0.25mL dose 1 completed Eduarda Perico null, [place] - [facility] & [place] 08/17/2022 13:25:10 Influenza, high-dose, trivalent, PF 0 completed Eduarda Perico null, [place] - [facility] & [place] 08/17/2022 13:25:10 Influenza, split virus, trivalent, preservative 8 completed [facility] [place] [facility] & [place] 08/17/2022 13:25:10 Td (adult), 2 Lf tetanus toxoid, preservative free, adsorbed 7 completed Eduarda Perico null, [place] - [facility] & [place] 08/17/2022 13:25:10 Influenza, split virus, quadrivalent, PF 9 completed Eduarda Perico null, [place] - [facility] & [place] 08/17/2022 13:25:10 COVID-19, mRNA, LNP-S, PF, 100 mcg/0.5mL dose or 50 mcg/0.25mL dose 1 completed Not Available [facility] 04/10/2023 09:05:03 COVID-19, mRNA, LNP-S, PF, 100 mcg/0.5mL dose or 50 mcg/0.25mL dose 1 completed Eduarda Perico null, [place] - [facility] & [place] 08/17/2022 13:25:10 COVID-19, mRNA, LNP-S, PF, 100 mcg/0.5mL dose or 50 mcg/0.25mL dose completed Eduarda Perico [facility] & [place] 08/17/2022 13:25:10 Past Encounters Encounter ID Performer Location Encounter Start Date Encounter Closed Date Diagnosis/Indication Diagnosis SNOMED-CT Code Diagnosis ICD10 Code Diagnosis Note [id number] MD [facility] [address] [place] [address] 11/16/2021 13:56:24 11/16/2021 18:20:56 Essential hypertension 86591906 I10 Patient returns today for follow-up of [...] 2 weeks Benign par oxysmal positional vertigo 889031693 H81.13 This appears to be in acute [...] symptoms that would require urgent re-evaluat ion. [id number] MD [facility] [address] [place] [address] 04/11/2022 10:23:58 04/11/2022 11:43:24 Depression screening 226569578 Z13.31 Appropriat e age related, gender related, and health risk related parameters were addressed today recommenda tions were made for appropriat e wellness studies as indicated. Essential hypertension 34085574 I10 Patient returns today for follow-up of [...] recheck in 2 weeks Postmenopausal state 764 81488 Z78.0 This represents a chronic process that has been stable on medication s for extended period of time. Currently there appears to be no toxicity or side effect and good response to treatment. For these reasons we will continue medication s as ordered. Osteoporosis 74752839 M8 1.0 This represents a chronic process that has been stable on medication s for extended period of time. Currently there appears to be no toxicity or side effect and good response to treatment. For these reasons we will continue medication s as ordered. Generalize d osteoarthritis 992454917 M15.9 Patient is on chronic medication for osteoarthr itic disease. Overall level of function is good, and there was no evidence of side effect specifical ly gastric irritation . Ongoing treatment with appropriat e surveillan ce is appropriat e. [id number] MD [facility] [address] [place] [address] 08/24/2022 14:18:33 08/24/2022 15:00:46 Right side sciatica 2675370652 41379 M54.31 This appears to be in acute [...] would require urgent re-evaluat ion. Acquired scoliosis 80566 6001 M41.9 this was a radiograph ic finding when they did her back x-ray. Overall she clinically had no symptoms prior I gave her appropriat e Education [id number] MD [facility] [address] [place] [address] 10/10/2022 08:41:37 10/10/2022 09:49:36 Adult health examination 565342812 Z00.01 Appropriat e age related, gender related, and health risk related parameters were addressed today recommenda tions were made for appropriat e wellness studies as indicated. Advance care planning 71 5684101 Z71.89 Issues relative to today's discussion and diagnosis were addressed. All questions were attempted to be addressed and reconciled . Any particular necessary informatio n was dispensed Standardiz ed adult depression screening tool completed 2730781935 31745 Z13.89 Appropriat e age related, gender related, and health risk related parameters were addressed today recommenda tions were made for appropriat e wellness studies as indicated. Essential hypertension 39894229 I10 Patient returns today for follow-up of [...] recheck in 2 weeks Generalize d osteoarthritis 737766508 M15.9 Patient is on chronic medication for osteoarthr itic disease. Overall level of function is good, and there was no evidence of side effect specifical ly gastric irritation . Ongoing treatment with appropriat e surveillan ce is appropriat e. Osteoporosis 18262259 M8 1.0 This represents a chronic process that has been stable on medication s for extended period of time. Currently there appears to be no toxicity or side effect and good response to treatment. For these reasons we will continue medication s as ordered. Lumbar spo ndylosis with myelopathy 01345389 M47.16 recent radiograph ic workup shows her [...] is definitely in agreement Long-term drug therapy 695797853 Z79.899 Surveillan ce laboratory studies have been ordered to assess for the target of treatment as well as any potential end-organ toxicity. [id number] MD [facility] [address] [place] [address] 10/06/2022 15:26:14 10/06/2022 16:08:20 Lumbar spondylosis with myelopathy 85133409 M47.16 Jose returns with significan t pain [...] her stomach does not tolerate nonsteroid als [id number] MD [facility] [address] [place] [address] 10/28/2022 09:11:21 10/28/2022 10:40:43 Lumbar spondylosis with myelopathy 84237861 M47.16 Patient has scheduled upcoming appointmen t with spinal surgeon. Cellulitis of leg, excluding foot 411899718 L03.119 As stated above, patient presents today [...] , just in case this does reappear. [id number] MD [facility] [address] [place] [address] 01/10/2023 09:29:53 01/10/2023 11:26:35 Administration of influenza vaccine 60469940 Z23 Essential hypertension 83239693 I10 Patient returns today for follow-up of [...] recheck in 2 weeks Generalize d osteoarthritis 894045533 M15.9 Patient is on chronic medication for osteoarthr itic disease. Overall level of function is good, and there was no evidence of side effect specifical ly gastric irritation . Ongoing treatment with appropriat e surveillan ce is appropriat e. Osteoporosis 50628432 M8 1.0 This represents a chronic process that has been stable on medication s for extended period of time. Currently there appears to be no toxicity or side effect and good response to treatment. For these reasons we will continue medication s as ordered. Postmenopausal state 764 38994 Z78.0 This represents a chronic process that has been stable on medication s for extended period of time. Currently there appears to be no toxicity or side effect and good response to treatment. For these reasons we will continue medication s as ordered. Lumbar spo ndylosis with myelopathy 02126354 M47.16 M48.07 We currently are awaiting neurosurgi deisy referral for evaluation . I am going to go on and use tramadol as a temporary pain control measure Standard ed adult depression screening tool completed [id number] 78892 Z13.89 Appropriat e age related, gender related, and health risk related parameters were addressed today recommenda tions were made for appropriat e wellness studies as indicated. [id number] MD [facility] [address] [place] [address] 01/24/2023 13:32:40 01/24/2023 14:25:44 Osteoarthritis of joint of right shoulder region 3944671027 02559 M19.011 Pain of ri ght hip joint 3558695561 36760 M25.551 [id number] MD [facility] [place] [address] 03/07/2023 09:33:37 03/07/2023 10:05:06 Osteoarthritis of right hip joint 2590647831 93507 M16.11 Numbness a nd tingling sensation of skin 9091046365 02 R20.2 [id number] MD [facility] [address] [place] [address] 04/10/2023 09:00:46 04/10/2023 09:50:11 Essential hypertension 32335746 I10 Patient returns today for follow-up of [...] recheck in 2 weeks Long-term drug therapy 868799121 Z79.899 Surveillan ce laboratory studies have been ordered to assess for the target of treatment as well as any potential end-organ toxicity. Generalize d osteoarthritis 600049698 M15.9 Patient is on chronic medication for osteoarthr itic disease. Overall level of function is good, and there was no evidence of side effect specifical ly gastric irritation . Ongoing treatment with appropriat e surveillan ce is appropriat e. Lumbar spo ndylosis with myelopathy 58532918 M47.16 M48.07 she currently is involved in pain management in his anticipati ng the potential placement of a pain pump Osteoporosis 08423887 M8 1.0 This represents a chronic process that has been stable on medication s for extended period of time. Currently there appears to be no toxicity or side effect and good response to treatment. For these reasons we will continue medication s as ordered. Chronic lo ng term disease management required: complex needs 899066119 Z76.89 Today's visit is part of long-term chronic disease management as well as chronic wellness management . Ongoing efforts to consolidat e and optimize care is the goal at each visit. Today's visit includes the management of surveillan ce laboratory studies, discussion of their values if necessary, in addition to the interactio n of multiple comorbidit ies, allowing the necessary additional time required [id number] Stone Ward MD [facility] erology [address] [place] [address] 08/24/2023 14:49:22 08/24/2023 17:09:07 Acquired dilation of bile duct 9162392366 963676 K83.8 see below Pancreatic duct disorder 425435706 K86.9 The patient has dilation of the [...] Endoscopic retrograde cholangiop ancreatogr aphy plus-minus EUS [id number] MD [facility] [address] [place] [address] 10/17/2023 08:54:47 10/17/2023 09:45:26 Adult health examination 856077871 Z00.00 Appropriat e age related, gender related, and health risk related parameters were addressed today recommenda tions were made for appropriat e wellness studies as indicated. Essential hypertension 93887660 I10 Patient returns today for follow-up of [...] in 2 weeks Advance care planning 71 1984724 Z71.89 Issues relative to today's discussion and diagnosis were addressed. All questions were attempted to be addressed and reconciled . Any particular necessary informatio n was dispensed Standardiz ed adult depression screening tool completed 3367636503 13709 Z13.31 Routine screening for depression is found to be negative. No interventi ons are required Lumbar spo ndylosis with myelopathy 18196301 M47.16 M48.07 she currently is involved in pain management in his anticipati ng the potential placement of a pain pump Osteoporosis 20061859 M8 1.0 This represents a chronic process that has been stable on medication s for extended period of time. Currently there appears to be no toxicity or side effect and good response to treatment. For these reasons we will continue medication s as ordered. Acquired d ilation of bile duct 7039550510 116289 K83.8 this is in the current process of workup with Dr. Ward Pancreatic duct disorder 062588802 K86.9 this is in the current process of workup with Dr. Ward Generalize d osteoarthritis 602414681 M15.9 Patient is on chronic medication for osteoarthr itic disease. Overall level of function is good, and there was no evidence of side effect specifical ly gastric irritation . Ongoing treatment with appropriat e surveillan ce is appropriat e. [id number] Stone Ward MD [facility] [address] [place] [address],[address] [place] [address] 12/04/2023 15:04:26 12/04/2023 15:53:02 Acquired dilation of bile duct 9248569561 722463 K83.8 No evidence of bile duct dilation by EUS, no further evaluation needed. Pancreatic duct disorder 842936411 K86.9 no worrisome features noted on recent EUS, mild ductal dilation without stones obstructio n ductal wall thickening or parenchyma l abnormalit ies. No further evaluation needed Gastric ulcer 444259360 K25.9 Gastric ulcers are likely nonsteroid al [...] she needs an H pylori stool antigen [id number] MD [facility] [address] [place] [address] 01/18/2024 14:59:29 01/18/2024 15:49:36 Pain of right shoulder joint 6321137682 2710470 M25.511 radiograph ically she is got advanced degenerati ve disease and what is suggestive of a joint effusion in tears within the rotator cuff. I have no idea whether there is going to be any option for an interventi on but I am going to go on and order an MRI of the shoulder. Full thick ness rotator cuff tear 335035758 M75.121 past history of rotator cuff repair now with exacerbati on of pain and marked limited range of motion of the shoulder Lumbar spo ndylosis with myelopathy 14923545 M47.16 M48.07 she currently is involved in pain management in his anticipati ng the potential placement of a pain pump Essential hypertension 66496563 I10 Patient returns today for follow-up of [...] blood pressure recheck in 2 weeks Generalize omega osteoarthritis [id number] M15.9 Patient is on chronic medication for osteoarthr itic disease. Overall level of function is good, and there was no evidence of side effect specifical ly gastric irritation . Ongoing treatment with appropriat e surveillan ce is appropriat e. Standardiz ed adult depression screening tool completed [id number] 46476 Z13.31 Routine screening for depression is found to be negative. No interventi ons are required [id number] MD ANDRES Stiles [facility] [address] [address] 02/14/2024 08:35:23 02/14/2024 09:17:48 Osteoarthritis of joint of right shoulder region 3664115492 94991 M19.225 [id number] MD ANDRES [facility] [address] [place] [address] 03/08/2024 09:28:26 03/08/2024 10:21:33 Pre-surgery evaluation 938935332 Z01.818 based on physical examinatio n historical data and objective studies obtained preoperati vely as well as physical exam today patient is cleared to proceed with surgery Full thick ness rotator cuff tear 747614325 M75.121 This appears to be in acute process for which surgical treatment has been prescribed . Appropriat e Education in regards to signs and symptoms of deteriorat ion were discussed with the patient. As well expectatio ns for progress in treatment and improvemen t were also discussed. Essential hypertension 75156343 I10 Patient returns today for follow-up of a chronic diagnosis of hypertensi on. Today's evaluation s suggest adequate control of disease process and no need for change in medication currently. systolic is mildly elevated but at her advanced age increasing medication s are only going to increase her stability issues and increase her fall risk. Generalize d osteoarthritis 116291749 M15.9 Patient is on chronic medication for osteoarthr itic disease. Overall level of function is good, and there was no evidence of side effect specifical ly gastric irritation . Ongoing treatment with appropriat e surveillan ce is appropriat e. [id number] KIERAN CHRISTENSEN [facility] [address] [address] 04/01/2024 13:54:06 04/01/2024 15:08:23 History of reverse prosthetic total arthroplasty of right shoulder 1515363380 0592377 Z96.249 [id number] KIERAN CHRISTENSEN [facility] [address] [place] [address] 04/29/2024 13:46:42 04/29/2024 14:27:50 History of reverse prosthetic total arthroplasty of right shoulder 6684564364 9207532 Z96.171 [id number] MD ANDRES [facility] [address] [place] [address] 04/29/2024 11:49:06 04/29/2024 12:35:25 Generalized osteoarthritis 080430193 M15.4 Patient is on chronic medication for osteoarthr itic disease. Overall level of function is good, and there was no evidence of side effect specifical ly gastric irritation . Ongoing treatment with appropriat e surveillan ce is appropriat e. Essential hypertension 17613275 I10 Patient returns today for follow-up of a chronic diagnosis of hypertensi on. Today's evaluation s suggest adequate control of disease process and no need for change in medication currently. systolic is mildly elevated but at her advanced age increasing medication s are only going to increase her stability issues and increase her fall risk. Lumbar spo ndylosis with myelopathy 72921916 M47.16 M48.07 she currently is involved in pain management in his anticipati ng the potential placement of a pain pump. I am going to go on and temporaril y supplement her with some hydrocodon e until she can have her interventi on completed Osteoporosis 38154776 M8 1.0 This represents a chronic process that has been stable on medication s for extended period of time. Currently there appears to be no toxicity or side effect and good response to treatment. For these reasons we will continue medication s as ordered. Gastric ulcer 301718819 K25.7 This represents a chronic process that has been stable on medication s for extended period of time. Currently there appears to be no toxicity or side effect and good response to treatment. For these reasons we will continue medication s as ordered. Standardiz ed adult depression screening tool completed 9671652204 64565 Z13.31 Routine screening for depression is found to be negative. No interventi ons are required [id number] David duff MD Deandre [facility] [address] [place] [address] 04/30/2024 10:12:25 05/01/2024 14:10:26 Essential hypertension 51051230 I10 Patient returns today for follow-up of a chronic diagnosis of hypertensi on. Today's evaluation s suggest adequate control of disease process and no need for change in medication currently. systolic is mildly elevated but at her advanced age increasing medication s are only going to increase her stability issues and increase her fall risk. Long-term current use of drug therapy 633647711 Z79.661 [id number] MD ANDRES [facility] [address] [place] [address] 05/16/2024 14:21:18 05/16/2024 15:10:45 Diastolic dysfunction 8878555 I50.32 Issues relative to today's discussion and diagnosis were addressed. All questions were attempted to be addressed and reconciled . Any particular necessary informatio n was dispensed Lumbar spo ndylosis with myelopathy 07540230 M47.16 M48.07 she currently is involved in pain management in his anticipati ng the potential placement of a pain pump. I am going to go on and temporaril y supplement her with some hydrocodon e until she can have her interventi on completed Essential hypertension 00827988 I10 Patient returns today for follow-up of [...] today we will offset are systolic elevation. [id number] MD ANDRES [facility] [address] [place] [address] 05/22/2024 12:07:58 05/22/2024 12:34:20 Lumbar spondylosis with myelopathy 47216093 M47.16 M48.07 she currently is involved in pain management in his anticipati ng the potential placement of a pain pump. I am going to go on and temporaril y supplement her with some hydrocodon e until she can have her interventi on completed Diastolic dysfunction 35 04162 I50.32 Issues relative to today's discussion and diagnosis were addressed. All questions were attempted to be addressed and reconciled . Any particular necessary informatio n was dispensed Full thick ness rotator cuff tear 811481401 M75.121 Roxy is currently involved in physical therapy in his responding well Standardiz ed adult depression screening tool completed 7285459246 62174 Z13.31 Routine screening for depression is found to be negative. No interventi ons are required Edema of l eft lower limb 732314034 R60.0 Issues relative to today's discussion and [...] her best answer for the lower extremity [id number] KIERAN [facility] [address] [place] [address] 9 06/10/2024 13:08:40 06/10/2024 13:51:23 History of reverse prosthetic total arthroplasty of right shoulder 8222355985 6506818 Z96.243 [id number] DO ANDRES CASTELLON [facility] [place] [address] 9 06/05/2024 09:35:17 06/05/2024 11:18:42 History of reverse prosthetic total arthroplasty of right shoulder 3229414644 1166968 Z96.935 [id number] MD ANDRES [facility] [address] 8 06/14/2024 09:28:45 06/14/2024 12:02:17 Lumbar spondylosis with myelopathy 71863235 M47.16 M48.07 she currently is involved in pain management in his anticipati ng the potential placement of a pain pump. I am going to go on and temporaril y supplement her with some hydrocodon e until she can have her interventi on completed Standardiz ed adult depression screening tool completed 3286594395 41949 Z13.31 Routine screening for depression is found to be negative. No interventi ons are required Edema of l eft lower limb 032091440 R60.0 Issues relative to today's discussion and [...] her best answer for the lower extremity [id number] MD ANDRES Stiles [facility] [address] [place] [address] 07/02/2024 13:55:16 07/02/2024 14:29:34 Pain of knee region 5188775428 M25.562 Prepatella r bursitis of left knee 1763592654 58244 M70.42 [id number] GEORGES RED NP [facility] [address] [place] [address] 07/22/2024 14:07:32 07/22/2024 14:43:39 History of reverse prosthetic total arthroplasty of right shoulder 1187134458 3695804 Z96.611 Prepatella r bursitis of left knee 8719106299 73373 M70.42 Health Concerns Section Related Observation LastModified by Organization Detai ls LastModified Time None Recorded Concern Status LastModified by Organization Details LastModified Time None Recorded Advance Directives Directive N: Payers Insurance Date Sequence Insurance Name Policy Number Policy Rico Covered Member ID Rico Member ID Guarantor Name 07/25/2024 2 AARP (MEDICARE SUPPLEMENT) PLAN F Brandee Dupree [id number] Brandee Dupree 07/19/2024 1 MED[place] Brandee Dupree [id number] Brandee Dupree Notes Date Note Type [...] lump where the discoloration is. CHE3 SAY ESTEVES DO [address] [place] [address],[address], [place], [address], [facility] & [place] 06/05/2024 12:29:28 06/10/2024 text/html This is [...] apt last week. E1AP GEORGES RED NP [address] [place] [address],[address], [place], [address], [facility] & [place] 06/10/2024 14:47:54 06/14/2024 text/html Today is follow- up for bilateral lower extremity fluid retention she is doing much better after Lasix. It is of note that she is getting steroid injections in the lumbar spine that is seems to have some degree of David MD Titi [address] [place] [address],[address], [place], [address], [facility] & [place] 06/14/2024 10:26:23 07/02/2024 text/html This 78 [...] sore to touch so she went to [facility] ED on 06.26.24 and was started on Clindamycin that she continues at this time. We are getting x-rays in the office today; 07.02.24. She reports it has improved greatly. CHE4 Brian Patterson MD [address] [place] [address],[address], [place], [address], [facility] & [place] 07/03/2024 09:23:35 07/22/2024 text/html Pt is here for f /u of her rt reverse from Mar 2024. She reports the shoulder is a little sore from mowing her grass. Her left knee pes bursitis is better. She is no-longer on ABX. Doing well-E1SF GEORGES RDE NP [address] [facility],[address], [place], [address], [facility] 07/22/2024 14:45:34 OBGyn Episode No OBEpisode recorded.
--- OUTSIDE RECORDS SUMMARY | 2024-08-29 08:53 | XMS_ITS | Continuity of Care Document ---
Author Organization [place] - [facility] Address [address] [place] [address] Care Team Providers Care Teaching Associate Name Role Phone DAVID MOROCHO Primary Care Provider [phone] DAVID MOROCHO Primary Care Provider Unavaila ble [...] d. Imaging XR, knee 025 025 gabbi [facility], [address] [place] [address] [place], [address], 07/03/2024 09:09:40 Medication Orders None recorde d. Patient TargetsNo targets recorded. Patient InstructionsNo instructions recorded. Reason for Referral None Reported. Results Created Date Observation Date Name Description Value Unit Range Abnormal Flag Note LastModifiedBy Organization Detail LastModifiedTime 06/06/19 25 XR, shoul tabitha No observ ation record ed. ALEJANDRA [address] [place], [address], 06/05/2024 10:34:05 07/03/19 25 XR, knee No observ ation record ed. ALEJANDRA [facility]res [facility] [address] [facility] , [place], [address], 07/02/2024 14:09:42 07/23/19 25 XR, shoul tabitha No observ ation record ed. ALEJANDRA [facility]res [facility] [place] [address] [facility] , [place], [address], 07/22/2024 14:30:28 08/28/19 25 08/26/2024 MRI, lumba r spine , w/o contr ast No observ ation record ed. [facility] [address], [place], [address], 08/27/2024 16:33:22 Result Notes None recorded. Problems Name Problem SNOMED Code Status Onset Date Resolution Date Notes Provider Name and Address Organization Details Recorded Time Full thickness rotator cuff tear 180026092 Active [address], MD [address] [place] [address],[address], [place], [address], [place] - [facility] - [place] & [place] 4 15:38:49 Standardize d adult depression screening tool completed 7543482289825 07 Active [address], MD [address] [place] [address],[address], [place], [address], [place] - [facility] - [place] & [place] 5 12:58:37 Diastolic dysfunction 8404496 Active [address], MD [address] [place] [address],[address], [place], [address], [place] - [facility] - [place] & [place] 5 15:16:24 Edema of left lower limb 574325968 Active [address], MD [address] [place] [address],[address], [place], [address], [place] - [facility] - [place] & [place] 5 12:37:46 Dizziness 402804619 Active 2021 jillian anali null, [place] - [facility] [place] & [place] 3 11:06:01 Essential hypertensio n 91543433 Active 2022 jillian anali null, [place] [facility] [place] & [place] 3 11:06:10 Osteoarthri tis of right knee joint 7280142477455 00 Active 2022 jillian anali null, [place] [facility] [place] & [place] 3 11:11:35 Sciatica 55282627 Active 2022 jillian anali null, [place] [facility] [place] 3 11:11:48 Postmenopau [place] 20894579 Active 2022 jillian anali null, [place] [facility] [place] & [place] 3 11:11:59 Osteoporosi s 74195935 Active 2022 jillian anali null, [place] [facility] [place] & [place] 3 11:12:12 Generalized osteoarthri tis 805830000 Active [address], MD [address] [place] [address],[address], [address], [place] [facility] [place] & [place] 3 12:25:30 Lumbar spondylosis with myelopathy 42783895 Active [address], MD [address] [place] [address],[address] [place] [address], [address], [place] [facility] [place] & [place] 4 09:49:34 Acquired dilation of bile duct 4669849714047 108 Active 2023 Stone Ward MD [address] [place] [address],[address] [place] [address], [address], [place] [facility] [place] & [place] 4 17:11:00 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 Procedures Surgical History Date Name Laterality Status Provider Name and Address Organization Details Recorded Time fixation of hip completed jillian anali [place] - [facility] & [place] 11/16/2021 15:11:04 procedure on knee completed jillian anali [email or web address] - [facility] & [place] 11/16/2021 15:11:27 complete repair of rotator cuff completed [email or web address] [facility] & [place] 01/10/2023 09:57:48 complete repair of rotator cuff completed [email or web address] - [facility] & [place] 01/10/2023 09:57:51 Imaging Results None recorded. Procedure [...] Tobacco Smoking Status Never Smoker jillian grigsby, [place] - [place] - [place] & [place] 04/06/2022 11:12:39 Do You Have An Advance Directive? No [email or web address] Information not available 10/10/2022 Are You Blind Or Do You Have Difficulty Seeing? No [email or web address] Information not available 10/10/2022 Is Blood Transfusion [...] Would You Say Your Health Is Good [email or web address] Information not available 10/10/2022 How Would You Describe The Condition Of Your Mouth And Teeth including False Teeth Or Dentures? Very Good [email or web address] Information not available 10/10/2022 In The Past [...] Bread, 1 Cup Of Whole-grain Or High-fiber Heeiv-hu-pbu Cereal, 1 2 Cup Of Cooked Cereal Such As Oatmeal, Or 1 2 Cup Of Cooked Brown Rice Or Whole Wheat Pasta.) 3-4 Servings Per Day [email or web address] Information not available 10/10/2022 In The Past 7 Days, How Many Servings Of Fried Or High-fat Foods Did You Typically Eat Each Day? (Examples Include Fried Chicken, Fried Fish, Sands, Pashto [place], Potato Chips, [place] Chips, Doughnuts, Creamy Salad Dressings, And Foods Made With Whole Milk, Cream, Cheese, Or Mayonnaise.) 1-2 Servings Per Day [email or web address] Information not available 10/10/2022 In The Past 7 Days, How Many Sugar-sweetened (not Diet) Beverages Did You Typically Consume Each Day 3-4 Drinks Per Day [email or web address] Information not available 10/10/2022 Each Night, How Many Hours Of Sleep Do You Usually Get? 5-6 Hours [email or web address] Information not available 10/10/2022 Do You Snore Or Has Anyone Told You That You Snore? Yes [email or web address] Information not available 10/10/2022 In The Past 7 Days, How Often Have You [place] Sleepy During The Daytime? Sometimes [email or web address] Information not available 10/10/2022 Do You Have Chronic Pain? Yes [email or web address] Information not available 10/10/2022 In The Past 7 Days, How Would You Rate Your Pain? Severe Pain(7-9) [email or web address] Information not available 10/10/2022 Are You In A Pain Management Program? No Information not available 10/10/2022 Do You Take Opioids For Your Pain? No [email or web address] Information not available 10/10/2022 How Often Is Stress A Problem For You In Handling Such Things As: Your Health, Your Finances, Your Family And Social Relationships, Your Work? Sometimes [email or web address] Information not available 10/10/2022 How Often Do You Get The Social And Emotional Support You Need: Always [email or web address] Information no t available 10/10/2022 In The Past 7 Days, Did You Need Help From Others To Take Care Of Things Such As Laundry And Housekeep- Ing, Banking, Shopping, Using The Telephone, Food Preparation, Transportation, Or Taking Your Own Medications? No [email or web address] Information not available 10/10/2022 Do You Live Alone? No Information not available 10/10/2022 Does Your Home Have Any Fall Risks (un-level Floors, Unfastened Rugs, Poor Lighting, Etc)? No [email or web address] Information not available 10/10/2022 What Was The Date Of Your Most Recent Tobacco Screening? 05/22/2024 [email or web address] Information not available 05/22/2024 How Many Children [...] Are You Passively Exposed To Smoke? No [email or web address] Information no t available 10/10/2022 What Types [...] use any illicit or recreational drugs? No [email or web address] Information not available 04/06/2022 Do you or have you ever used any other forms of tobacco or nicotine? No [email or web address] Information not available 01/24/2023 What is your level of alcohol consumption? None [email or web address] Information not available 04/06/2022 Are you currently [...] 01/24/2023 What is your exercise level? Moderate [email or web address] Information not available 10/10/2022 Mental Status Question Answer Note LastModified by Organizat ion Details LastModified Time Do you feel stressed (tense, restless, nervous, or anxious, or unable to sleep at night)? [id number] [email or web address] Information not available 10/10/2022 Do you have difficulty concentrating, remembering or making decisions? No [email or web address]-13 Information no t available 01/24/2023 Family History Relationship Description Onset Age of this Age Resolved Age Notes LastModified by Organization Details LastModified Time Father Essential hypertension [email or web address] Not available 15:10:19 Mother Essential hypertension [email or web address] Not available 15:10:19 Medical History Condition Response [...] 3 completed Eduarda [place]igsby, [place] - [facility] & [place] 01/10/2023 11:26:48 COVID-19, mRNA, LNP-S, PF, 100 mcg/0.5mL dose or 50 mcg/0.25mL dose 1 completed Eduarda River null, [place] - [facility] & [place] 08/17/2022 13:25:10 Influenza, high-dose, trivalent, PF 0 completed Eduarda River null, [place] - [facility] & [place] 08/17/2022 13:25:10 Influenza, split virus, trivalent, preservative 8 completed Eduarda grigsby, [place] - [facility] & [place] 08/17/2022 13:25:10 Td (adult), 2 Lf tetanus toxoid, preservative free, adsorbed 7 completed Eduarda Perico null, [facility] & [place] 08/17/2022 13:25:10 Influenza, split virus, quadrivalent, PF 9 completed Eduarda River null, [place] - [facility] & [place] 08/17/2022 13:25:10 COVID-19, mRNA, LNP-S, PF, 100 mcg/0.5mL dose or 50 mcg/0.25mL dose 1 completed Not Available [facility] 04/10/2023 09:05:03 COVID-19, mRNA, LNP-S, PF, 100 mcg/0.5mL dose or 50 mcg/0.25mL dose 1 completed Eduarda Perico null, [place] - [facility] & [place] 08/17/2022 13:25:10 COVID-19, mRNA, LNP-S, PF, 100 mcg/0.5mL dose or 50 mcg/0.25mL dose 1 completed [facility]uteer [facility], [facility] [place] 08/17/2022 13:25:10 Past Encounters Encounter ID Performer Location Encounter Start Date Encounter Closed Date Diagnosis/Indication Diagnosis SNOMED-CT Code Diagnosis ICD10 Code Diagnosis Note [id number] KIERAN CHRISTENSEN [address] [address] 06/10/2024 13:08:40 06/10/2024 13:51:23 History of reverse prosthetic total arthroplasty of right shoulder 7393871486 5361743 Z96.703 [id number] DO ANDRES CASTELLON [address] [address] 06/05/2024 09:35:17 06/05/2024 11:18:42 History of reverse prosthetic total arthroplasty of right shoulder 2590678925 7237313 Z96.523 [id number] MD ANDRES [facility] [address] [place] [address] 06/14/2024 09:28:45 06/14/2024 12:02:17 Lumbar spondylosis with myelopathy 09309433 M47.16 M48.07 she currently is involved in pain management in his anticipati ng the potential placement of a pain pump. I am going to go on and temporaril y supplement her with some hydrocodon e until she can have her interventi on completed Standardiz ed adult depression screening tool completed 8327463174 71918 Z13.31 Routine screening for depression is found to be negative. No interventi ons are required Edema of l eft lower limb 720791909 R60.0 Issues relative to today's discussion and [...] her best answer for the lower extremity [id number] Brian Patterson MD Deandre [facility] [address] [place] [address] 07/02/2024 13:55:16 07/02/2024 14:29:34 Pain of knee region 7044622491 M25.562 Prepatella r bursitis of left knee 5184890067 87948 M70.42 Health Concerns Section Related Observation LastModified by Organization Detai ls LastModified Time None Recorded Concern Status LastModified by Organization Details LastModified Time None Recorded Payers Encounter Date Sequence Insurance Name Policy Number Policy Rico Covered Member ID Rico Member ID Guarantor Name 07/02/2024 1 [place] Brandee Dupree [id number] Brandee Dupree 07/02/2024 2 AARP (MEDICARE SUPPLEMENT) PLAN F Brandee Leia [id number] Brandee Dupree Notes Date Note Type Note [...] sore to touch so she went to [facility] ED on 06.26.24 and was started on Clindamycin that she continues at this time. We are getting x-rays in the office today; 07.02.24. She reports it has improved greatly. CHE4 Brian Patterson MD [address] [place] [address],[address], [place], [address], [email or web address] - [facility] 07/03/2024 09:23:35 OBGyn Episode No OBEpisode recorded.
--- NOTE | 2024-08-29 09:15 | CT_ITS ---
FINAL REPORT TECHNIQUE: Axial CT of the abdomen and pelvis, without and with IV contrast. This study was performed with techniques to keep radiation doses as low as reasonably achievable, (ALARA). Individualized dose reduction techniques using automated exposure control or adjustment of mA and/or kV according to the patient's size were employed. CLINICAL HISTORY: finding on MRI L spine COMPARISON: MRI lumbar spine 08/27/2024 FINDINGS: CT ABDOMEN PELVIS WITH AND WITHOUT CONTRAST: CT ABDOMEN PELVIS WITH AND WITHOUT CONTRAST: Abdomen: Lung bases are clear. Precontrast, no renal stone disease is identified. Unfortunately, postcontrast enhanced delayed imaging was not performed. Hydronephrosis is suspected rather than parapelvic cysts, moderate on the left and mild on the right. Liver has an unremarkable CT appearance. There is moderate to severe biliary ductal dilatation, the common bile duct measuring up to 19 mm in diameter. The pancreatic duct is dilated as well, measuring up to 6 mm. The gallbladder is unremarkable. The spleen, pancreas and adrenal glands are unremarkable. Moderate fecal impaction is present. Pelvis: Pelvic floor prolapse is noted, and the patient is post hysterectomy. There is soft tissue fullness of the anus, which could be secondary to mass, partial prolapse, or even hemorrhoids. IMPRESSION: 1. Bilateral hydronephrosis is suspected, much greater on the left. This could be definitively confirmed with delayed imaging during excretory phase. 2. Significant biliary ductal dilatation extending to the pancreas with pancreatic ductal dilatation. No obvious mass, however, ERCP correlation is suggested. 3. Soft tissue fullness in the region of the anus, correlate with clinical exam. 4. If hydronephrosis is confirmed on delayed CT excretory imaging, potential cause of extrinsic compression of the distal ureters could be pelvic floor prolapse. Reviewed, Interpreted and Dictated by Geetha Barone MD Transcribed by Diann Rodrigues Authenticated and . [facility]
[2024-08-29 09:17] LABS: Blood Urea Nitrogen 16 mg/dl (7-17); Estimated Glomerular Filt Rate 119 ml/min (>60); GFR (African American) 144 ML/MIN (>60)
[2024-08-29] MEDS: IOPAMIDOL-370 (76%);100ML BOTTLE 75 ML IV (09:40)
[2024-08-29] MEDS: SODIUM CHLORIDE 0.9% 10ML SYR (RAD ONLY) 10 ML IV (09:40)
== END 2024-08-29 23:59 | disposition home or self-care (01) ==
LOC: RAD 08:39
PROVIDERS: PCP Internal Medicine; Visit Provider Nurse Practitioner Family
DX: K86.89 Other specified diseases of pancreas (principal); K82.8 Other specified diseases of gallbladder
CPT/HCPCS: 36415; 74178; 82565; 84520; Q9967

== ENCOUNTER 2024-09-02 10:55 | Outpatient (CLI) | payer MEDICARE, SELFPAY ==
--- OUTSIDE RECORDS SUMMARY | 2024-09-02 10:57 | XMS_ITS | Clinical Summary ---
Author Organization [facility] Address [address] [place] [address] Phone Care Team Providers Care [employer] Assistant Principal Name Role Phone Butch LARA Stone Richardson [phone] Conditions or Problems Problem Name Problem Code Onset Date Status Entry Date Provider Comment Standard Description Annotate SPINAL STENOSIS, LUMBAR REGION WITH NEUROGENIC CLAUDICATION 642129854 (SNOMED CT) 11/14 Active 11/22 Elin Fernando SPONGE BUFFER Neurogenic claudication SCOLIOSIS DEFORMITY OF SPINE 452891752 (SNOMED CT) 11/14 Active 11/22 Elin Fernando SPONGE BUFFER Scoliosis deformity of spine SPONDYLOLISTH ESIS 928950903 (SNOMED CT) 11/14 Active 11/14 L[facility] Spondylolisthesis Medications Medication Instructions Start Date Stop Date Generic Name NDC Provider GABAPENTIN 100 MG CAPS Take 1-3 capsule by mouth three times a day may increase dose as tolerated to up to 300 mg TID; start at 100mg TID 1 gabapentin [id number] Elin Fernando SPONGE BUFFER Medications Administered No information available. Allergies, Adverse [...]
--- OUTSIDE RECORDS SUMMARY | 2024-09-02 10:58 | XMS_ITS | Clinical Summary ---
Author Organization [facility] Address [address] [place] [id number] Care Team Providers Care [employer] Consultant Name Role Phone John Walls MD Primary Care Provider [phone] Source Comments This information has been disclosed [...] therelease of HIV test results or diagnoses. [id number] Allergies No known active allergies Medications [...] Dupree Relation to Subscriber:Self Name:Brandee Dupree Payer ID:[id number] Group ID:Not on file Type:Medicare Address: [address] Care Teams [employer] Consultant Relationship Specialty Start Date End Date John Walls MD [address] [place] [address] PCP - General Internal Medicine 10/11/23
--- OUTSIDE RECORDS SUMMARY | 2024-09-02 10:58 | XMS_ITS | Clinical Summary ---
Author Organization [facility] Address [place] [address] Phone Care Team Providers Care Beach Attendant Name Role Phone John Walls MD Primary [...] (GEN/SCALENE); Surgeon: Juan Alberto Christy MD; Location: [facility]; Service: Orthopedics Medical devices from this surgery are in the Medical Devices section. 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 Device Identifier Shelf Expiration Date Model / Serial / Lot Bilateral Iol [employer] Single Size 1 - [id number] Implanted:Qty: 1 on 11/08/2013 by Juan Alberto Christy MD at [facility] Right: Shoulder BIOMET 01/08/2018 [id number] / / [id number] [employer] 2.9 With [employer] [place] - [id number] Implanted:Qty: 2 on 11/08/2013 by Juan Alberto Christy MD at [facility] Right: Shoulder BIOMET 08/08/2018 [id number] / / [id number] [employer] 2.9 With [employer] [place] - [id number] Implanted:Qty: 1 on 02/28/2014 by Juan Alberto Christy MD at [facility] Right: Shoulder BIOMET 09/02/2018 [id number] / / [id number] [employer] 2.9 With [employer] [place] - [id number] Implanted:Qty: 1 on 02/28/2014 by Juan Alberto Christy MD at [facility] Right: Shoulder BIOMET 09/02/2018 [id number] / / [id number] Insurance MEDICARE [place] PART A AND B [address] SUPPLEMENTAL Care Teams [place] Attendant Relationship Specialty Start Date End Date John Walls MD [address] [place] [address] PCP - General Internal Medicine 11/08/13
[2024-09-02 12:06] LABS: Albumin Level 4.7 g/dl (3.5-5.0); Chloride 103 mmol/L (98-107)
[2024-09-02 12:07] LABS: Potassium 4.6 mmoL/L (3.5-5.1); Sodium 139 mmol/L (136-145)
[2024-09-02 12:09] LABS: Alanine Aminotransferase 10 U/L (12-78); Alkaline Phosphatase 55 U/L (38-126); Anion Gap 12.6 mEq/L (5-15); Aspartate Amino Transferase 23 U/L (14-36); Bilirubin,Total 0.4 mg/dl (0.2-1.3); Blood Urea Nitrogen 16 mg/dl (7-17); Carbon Dioxide 28 mmol/L (22.0-30.0); Estimated Glomerular Filt Rate 119 ml/min (>60); GFR (African American) 144 ML/MIN (>60)
[2024-09-02 12:10] LABS: Globulin 2.3 g/dL (1.3-3.2); Glucose 92 mg/dl (74-100); Lipase 91 U/L (23-300)
== END 2024-09-02 23:59 | disposition home or self-care (01) ==
LOC: LAB 10:56
PROVIDERS: PCP Internal Medicine; Visit Provider Nurse Practitioner Family
DX: K83.8 Other specified diseases of biliary tract (principal); K86.89 Other specified diseases of pancreas
CPT/HCPCS: 36415; 80053; 83690